=== PATIENT | male | born 1965 | race Caucasian/White ===

== ENCOUNTER → 2019-11-22 15:46 | Outpatient (BNVA) | payer MEDICAID, SELFPAY | PROVIDERS: Family Provider Nurse Practitioner; PCP Nurse Practitioner; Visit Provider Nurse Practitioner | DX: E11.65 Type 2 diabetes mellitus with hyperglycemia (principal); J44.9 Chronic obstructive pulmonary disease, unspecified; I10 Essential (primary) hypertension; L29.9 Pruritus, unspecified; K21.9 Gastro-esophageal reflux disease without esophagitis; Z86.79 Personal history of other diseases of the circulatory system; Z79.4 Long term (current) use of insulin; F41.9 Anxiety disorder, unspecified | CPT/HCPCS: 80053; 83036 ==

== ENCOUNTER → 2020-01-05 13:45 | Outpatient (BNVA) | payer MEDICAID, SELFPAY | PROVIDERS: Family Provider Nurse Practitioner; PCP Nurse Practitioner; Visit Provider Orthopaedic Surgery | DX: M25.561 Pain in right knee (principal); M25.562 Pain in left knee; M17.0 Bilateral primary osteoarthritis of knee; M19.022 Primary osteoarthritis, left elbow | CPT/HCPCS: 73080; 73560; 73565 ==

== ENCOUNTER → 2020-01-19 10:43 | Outpatient (BNVA) | payer MEDICAID, SELFPAY | PROVIDERS: Family Provider Nurse Practitioner; PCP Nurse Practitioner; Visit Provider Orthopaedic Surgery | DX: M16.0 Bilateral primary osteoarthritis of hip (principal) | CPT/HCPCS: 73522 ==

== ENCOUNTER → 2020-01-25 13:02 | Outpatient (BNVA) | payer MEDICAID, SELFPAY | PROVIDERS: Family Provider Nurse Practitioner; PCP Nurse Practitioner; Visit Provider Specialist | DX: G62.9 Polyneuropathy, unspecified (principal); Z87.891 Personal history of nicotine dependence | CPT/HCPCS: 95910 ==

== ENCOUNTER → 2020-02-17 13:25 | Outpatient (BNVA) | payer MEDICAID, SELFPAY | PROVIDERS: Family Provider Nurse Practitioner; PCP Nurse Practitioner; Visit Provider Specialist | DX: M19.021 Primary osteoarthritis, right elbow (principal); M19.022 Primary osteoarthritis, left elbow; G56.23 Lesion of ulnar nerve, bilateral upper limbs | CPT/HCPCS: G0463 ==

== ENCOUNTER → 2020-05-05 10:13 | Outpatient (BNVA) | payer MEDICAID, SELFPAY | PROVIDERS: Family Provider Nurse Practitioner; PCP Nurse Practitioner; Referring Provider Orthopaedic Surgery; Visit Provider Anesthesiology Pain Medicine | DX: M25.551 Pain in right hip (principal); M25.552 Pain in left hip; M19.021 Primary osteoarthritis, right elbow; M19.022 Primary osteoarthritis, left elbow; M17.0 Bilateral primary osteoarthritis of knee; G56.03 Carpal tunnel syndrome, bilateral upper limbs; G56.23 Lesion of ulnar nerve, bilateral upper limbs | CPT/HCPCS: 20610; 77002; 77003; 99204; J1030; J3490 ==

== ENCOUNTER 2020-05-23 13:55 | Outpatient (CLI) | payer MEDICAID, SELFPAY | END 2020-05-23 13:56 | disposition home or self-care (01) | LOC: LAB 04-05 14:37 | PROVIDERS: PCP Nurse Practitioner; Visit Provider Nurse Practitioner | DX: E11.65 Type 2 diabetes mellitus with hyperglycemia (principal) | CPT/HCPCS: 80053; 80061; 81000; 82150; 83036; 83690; 84443; 85025 ==

== ENCOUNTER 2020-05-30 10:31 | Outpatient (CLI) | payer MEDICAID, SELFPAY ==
--- NOTE | 2020-05-30 10:41 | ECG_ITS ---
[facility] Test Date: 2020-05-30 Pat Name: Yair Urrutia Department: Room: Gender: Male Diver Assistant: : 1965 Requested By: Darlene Deng Order Number: [id number] Cameron MD: Darlene Deng M.D. Interpretive Statements NAME OF STUDY: LEXISCAN SESTAMIBI STRESS TEST INDICATION: Chest Pain, PROCEDURE: At the baseline, the EKG revealed normal sinus rhythm with a poor R wave progression. The baseline blood pressure was 140/86 mm Hg with a heart rate of 81 beats/min. Lexiscan was infused over a period of 20 seconds. A total of 0.4 milligrams of Lexiscan was infused. The stress phase was continued for a total of 5 minutes. Heart rate at the end of the stress phase was 88 with a blood pressure 139/78. The EKG at the peak infusion revealed no significant changes. Sestamibi was injected 20 seconds after the Lexiscan infusion. Blood pressure at the end of the recovery phase was 140/72 with a heart rate of 87 per minute. CONCLUSION: 1. No significant EKG changes with the LexiScan infusion 2. No LexiScan induced chest pain or cardiac arrhythmia 3. Normal blood pressure and heart rate response 4. Sestamibi/sestamibi perfusion scan pending; see separate report. Electronically Signed On 05-31-2020 20:49:54 CDT by Darlene Deng M.D. [email or web address]
--- NOTE | 2020-05-30 10:41 | NMCV_ITS ---
NM irma perf SPECT r/s* [id number] Yair Urrutia Age: 54 Gender: M : 1965 Exam Date: 05/30/2020 11:32 Ordering Phys: Darlene Deng MD ([email or web address]) Technologist: CADENCE Adamson Exam Location: [facility] Indications: CHEST PAIN STRESS TEST Please see separate stress test report in [facility] for full findings IMAGE PROTOCOL Rest/Stress 1 Lexiscan Day Radiopharmaceutical Dose (mCi) Administration Site Administered by Rest: Tc-99m 10.8 IV CADENCE Cali Sestamibi Stress:Tc-99m 32.7 IV CADENCE Adamson Sestamiswapnil Rest: 30-May-2020 60 Discovery 630 Stress: 30-May-2020 30 Discovery 630 0.4mg Lexiscan. Images obtained in supine and prone position. SPECT RESULTS Technical Quality: Excellent Raw Data Analysis: Normal Image Corrections: No attenuation or motion correction applied Summed Stress Score: 3 Summed Rest Score: 1 Summed Difference Score: 2 PERFUSION FINDINGS Small area of decreased tracer uptake was noted in the mid and apical inferior wall region. There is some reversibility with the supine imaging. But with the prone imaging, there was no significant reversibility. FUNCTIONAL RESULTS (calculated via Gated SPECT) Stress Image LV EF (%): 76 Stress EDV (mL):106 TID: 0.97 Stress ESV (mL):25 FUNCTIONAL FINDINGS: Segmental wall motion analysis revealing no gross wall motion normalities. IMPRESSIONS 1. Myocardial perfusion imaging revealing a small area of inconsistent reversible defect in the inferior wall region, most likely artifactual. 2. Normal LV ejection fraction 76%. 3. LV wall motion analysis revealing no gross wall motion normalities. 4. Normal LV volume. Possibly no significant coronary ischemia, based on the above finding. No similar previous studies are available for comparison Dr Darlene Deng MD [facility] (Electronically Signed) Final Date: 31 May 2020 11:44 S
[2020-05-30 10:49] VITALS: BMI 42.7
[2020-05-30] MEDS: regadenoson 0.4 Mg/5 ml Syringe IVP (12:18)
[2020-05-30 12:34] VITALS: BP 140/72; PULSE 86
== END 2020-05-30 10:32 | disposition home or self-care (01) ==
LOC: CDL 10:31
PROVIDERS: PCP Nurse Practitioner; Visit Provider Internal Medicine Cardiovascular Disease
DX: R07.9 Chest pain, unspecified (principal); R06.02 Shortness of breath
CPT/HCPCS: 78452; 93017; A9500; J2785

== ENCOUNTER 2020-06-09 22:43 | Emergency (ER) | payer MEDICAID, SELFPAY ==
[2020-06-09 22:48] VITALS: BP 173/92; PULSE 103; RESP 20; TEMP 36.6; O2SAT 96; BMI 414.6
[2020-06-09 22:55] VITALS: PULSE 100
--- NOTE | 2020-06-09 22:59 | XRR_ITS ---
PROCEDURE INFORMATION: Exam: XR Left Elbow Exam date and time: 06/09/2020 10:59 PM Age: 54 years old Clinical indication: Injury or trauma; Blunt trauma (contusions or hematomas); Injury date: 06/09/20; Patient HX: C/O pain after fall left elbow. Swelling over olecranon and at joint. HX of left wrist surgery TECHNIQUE: Imaging protocol: XR Left elbow. Views: 3 or more views. COMPARISON: No relevant prior studies available. FINDINGS: Bones/joints: Osseous loose bodies are seen anteriorly overlying the coronoid process of the ulna. Soft tissues: Normal. XR/XR elbow LT min 3V* [id number] IMPRESSION: There are no acute osseous findings.
--- NOTE | 2020-06-09 22:59 | XRR_ITS ---
PROCEDURE INFORMATION: Exam: XR Right Knee Exam date and time: 06/09/2020 10:59 PM Age: 54 years old Clinical indication: Injury or trauma; Blunt trauma; Right; Injury date: 06/09/20; Patient HX: C/O pain RT knee after fall today. Swelling TECHNIQUE: Imaging protocol: XR Right knee. Views: 3 views. COMPARISON: No relevant prior studies available. FINDINGS: Bones/joints: Moderate loss of joint space seen in the medial compartment the right knee compatible with degenerative joint disease. Soft tissues: Normal. XR/XR knee RT 3V* [id number] IMPRESSION: There are no acute osseous findings.
--- NOTE | 2020-06-09 23:43 | W.ED.EXTPRO ---
HPI - Extremity Problem General: Chief complaint: Extremity Injury, Upper Stated complaint: l arm pain r knee pain Time Seen by Provider: 06/09/20 22:51 History of Present Illness: HPI Narrative: 54-year-old male who tripped over some firewood, injuring his left elbow and right knee. He can bear weight on his right knee, but it hurts significantly and is mildly swollen. He states the elbow is the worst pain. He did hit his head on the ground, but is not experiencing any headache or other symptoms related to that. MD Complaint: extremity pain and extremity swelling Onset (ago): hour(s) Pain Consistency: constant Location: left, right, upper extremity, lower extremity, elbow and knee Relieving factors: nothing Exacerbating factors: range of motion and weight bearing Associated symptoms: Deny chest pain or fever(s) Review of Systems Const: Denies: fever(s) or chills Card: Denies: chest pain or syncope Resp: Denies: dyspnea GI: Denies: nausea or vomiting PFS ED PFSH: Medical History (Updated 06/09/20 @ 23:55 by Harry Bailey DO) Anxiety Atypical chest pain the EKG revealed a normal sinus rhythm with possible old inferior wall myocardial infarction. No significant ST-T changes. Werner esophagus Benign essential hypertension with target blood pressure below 140/90 Bilateral carpal tunnel syndrome Cervical spondylosis with myelopathy and radiculopathy Chronic deep vein thrombosis of lower extremity Right Chronic musculoskeletal pain Chronic obstructive pulmonary disease, unspecified Controlled diabetes mellitus with hyperglycemia, with long-term current use of insulin Controlled diabetes mellitus with hyperglycemia, without long-term current use of insulin Cubital tunnel syndrome, bilateral ROGEL (dyspnea on exertion) Dyslipidemia Environmental and seasonal allergies History of intravenous drug use in remission Loose body in elbow joint Neuropathy Obesity DMITRIY (obstructive sleep apnea) Osteoarthritis of elbows, bilateral Osteoarthritis of knees, bilateral Surgical History History of cholecystectomy History of knee surgery History of thumb surgery Family History Other CVA (cerebrovascular accident due to intracerebral hemorrhage) Heart disease Hypertension Lung disease Social History Smoking and tobacco status: former smoker Second hand smoke exposure: No Smoking risk assessment/counseling performed?: No Alcohol intake: never Desire information about alcohol rehabilitation?: No Counseling given: No Desire information about substance/drug rehabilitation?: No Counseling given: No Caregiver/support person: No Lives independently: Yes Household members: spouse Marital status: History of recent travel: No Current gender identity: Male Physical Exam Const: GENERAL APPEARANCE: well developed ORIENTATION/CONSCIOUSNESS: Yes oriented to person, Yes oriented to place and Yes oriented to time HENMT: COMMON NORMALS: normocephalic, external ears normal and Normal external nose present HEAD & SCALP: normocephalic FACE & SINUS: normal facial exam NOSE: Normal external nose present and No nasal discharge present EXTERNAL EAR: Yes external ears normal Eye: COMMON NORMALS: Equal, round and reactive pupils present, EOMs intact bilaterally and conjunctivae normal EYELID: eyelids normal CONJUNCTIVA: Yes conjunctivae normal PUPIL: Yes Equal, round and reactive pupils present Neck/C-Spine: GENERAL: No tracheal deviation CERVICAL SPINE: No Cervical spine tenderness Chest: COMMONS NORMALS: normal inspection of the chest CHEST: No tenderness Resp: COMMON NORMALS: clear to auscultation bilaterally EFFORT & INSPECTION: No tachypneic, No respiratory distress, No retractions, No uses accessory muscles and No tracheal deviation AUSCULTATION: clear to auscultation bilaterally, no rhonchi, no wheezes and lung sounds not diminished Cardio: COMMON NORMALS: regular rate and regular rhythm RATE: regular rate RHYTHM: regular rhythm HEART SOUNDS: no murmurs PERIPHERAL PULSES: radial pulses present GI: INSPECTION: No abdominal distension AUSCULTATION: No Hyperactive bowel sounds present and No Hypoactive bowel sounds present PALPATION: No Guarding due to palpation present (GI) and No Rigid due to palpation PERCUSSION: no dullness to percussion and no tympanic to percussion Extremity: NARRATIVE EXTREMITY EXAM: Examination left elbow reveals some warmth and swelling. There is tenderness in the joint lines medial and lateral, there is significant tenderness over the radiocapitellar joint. Limitation of range of motion by pain. Examination of the right knee reveals mild knee joint effusion. There is tenderness in the medial joint line. There is no deformity. There is no varus or valgus instability. Neuro: SENSORIUM/ORIENTATION: Yes oriented to person, Yes oriented to place and Yes oriented to time Psych: COMMON NORMALS: mental status grossly normal Skin: COMMON NORMALS: no rashes or lesions noted GENERAL SKIN EXAM: no rashes or lesions noted Course Vital Signs: Vital signs: Vital Signs Temperature 97.9 F 06/09/20 22:48 Pulse Rate 99 06/10/20 00:22 Respiratory Rate 16 06/09/20 23:49 Blood Pressure 136/97 06/10/20 00:22 Pulse Oximetry 96 06/10/20 00:22 MDM - Extremity (Nontraumatic) MDM Narrative: Medical decision making narrative: X-ray of the right knee shows medial joint line arthritis with effusion. No fracture. X-ray of the left elbow shows a small joint effusion. There are multiple loose bodies present with osteoarthritic change. There does appear to be radial neck fracture that is likely acute. Discharge Plan Discharge Patient Disposition: Home Clinical Impression: Elbow fracture, left Qualifiers: Encounter type: initial encounter Fracture type: closed Qualified Code(s): S42.402A - Unspecified fracture of lower end of left humerus, initial encounter for closed fracture Contusion of knee, right Qualifiers: Encounter type: initial encounter Qualified Code(s): S80.01XA - Contusion of right knee, initial encounter Condition: Stable Prescriptions: New Percocet 5-325 mg tablet 1 tab PO QID PRN (Reason: pain) Qty: 14 RF: 0 No Action (DME) pen needle, diabetic 33 gauge x 5/32 needle See Rx Instructions .ROUTE .MEDSUPPLY Qty: 100 RF: 5 cetirizine 10 mg tablet 10 mg PO DAILY Qty: 30 RF: 5 doxepin 100 mg capsule 100 mg PO TID PRN (Reason: anxiety) Qty: 90 RF: 5 duloxetine [Cymbalta] 60 mg capsule,delayed release(DR/EC) 60 mg PO BID Qty: 60 RF: 5 hydroxyzine pamoate 50 mg capsule 50 mg PO .at bedtime Qty: 30 RF: 5 Hold Instructions: Dry mouth irbesartan 300 mg tablet 300 mg PO DAILY Qty: 30 RF: 5 pantoprazole 40 mg tablet,delayed release (DR/EC) 40 mg PO BID Qty: 60 RF: 5 propranolol 20 mg tablet 20 mg PO BID Qty: 60 RF: 5 Xarelto 20 mg tablet 20 mg PO DAILY Qty: 30 RF: 5 Levemir FlexTouch U-100 Insuln 100 unit/mL (3 mL) insulin pen 20 unit SUBCUT DAILY Qty: 15 RF: 0 (DME) blood-glucose meter Kit See Rx Instructions .ROUTE .MEDSUPPLY Qty: 1 RF: 0 sildenafil (pulm.hypertension) PO RF: 0 (DME) lancets [OneTouch Delica Lancets] 33 gauge misc See Rx Instructions .ROUTE .MEDSUPPLY Qty: 100 RF: 2 amlodipine 5 mg tablet 5 mg PO DAILY 30 Days Qty: 30 RF: 5 (DME) OneTouch Ultra Blue Test Strip Strip See Rx Instructions .ROUTE .MEDSUPPLY Qty: 50 RF: 5 (DME) OneTouch Ultra Blue Test Strip Strip See Rx Instructions .ROUTE .MEDSUPPLY Qty: 50 RF: 2 albuterol sulfate [ProAir HFA] 90 mcg/actuation HFA aerosol inhaler 2 puff INHALATION Q6H PRN (Reason: shortness of breath or wheezing) Qty: 18 RF: 0 Discharge Orders: Discharge Order (Routine); Ordered 06/09/20 Ordered By: Harry Bailey Referrals: Matthew Velazquez, FUNCTIONAL DIRECTOR-C [Primary Care Provider] - Jammie Moon MD [Physician] - 4-7 days Discharge Diet: Usual diet Discharge Activity: Limit activity as instructed Patient Instructions: Elbow Fracture in Adults (ED), Knee Pain (ED) Activity Restrictions/Additional Instructions: Return for worsening pain despite treatment, significant numbness and tingling, other concerning symptoms. Ice the elbow and knee, as it will help pain and swelling. Stay in your elbow splint until seen by orthopedics. Discharge Date/Time: 06/10/20 00:22 Coding Level of Care Code ED Small [employer] Assembler for Chg Fwd Exam Comprehensive
[2020-06-09 23:49] VITALS: RESP 16; O2SAT 99
[2020-06-09] MEDS: oxyCODONE-APAP 5-325 mg Tablet 2 TAB PO (23:49)
[2020-06-10 00:22] VITALS: BP 136/97; PULSE 99; O2SAT 96
--- NOTE | 2020-06-12 14:17 | DCPLANNER ---
manager of investigations had message to schedule a follow up appointment for patient with ortho. manager of investigations called the ortho clinic, spoke with Pat, gave clinic patients information. manager of investigations was told that patients information would be printed and reviewed. Clinic will call patient with appointment information.
--- NOTE | 2020-06-14 13:32 | DCPLANNER ---
Patient has a follow up appointment scheduled for Sunday, June 28, 2020 at 1:[address] Moon. Clinic will call patient with appointment information.
--- NOTE | 2020-07-26 15:38 | DCPLANNER ---
Patient had a follow up appointment scheduled for 06.28.20 with ortho - patient did attend appointment.
== END 2020-06-10 00:22 | disposition home or self-care (01) ==
PROVIDERS: Emergency Provider Emergency Medicine; PCP Nurse Practitioner
DX: S42.402A Unspecified fracture of lower end of left humerus, initial encounter for closed fracture (principal); S80.01XA Contusion of right knee, initial encounter; Z79.4 Long term (current) use of insulin; I10 Essential (primary) hypertension; J44.9 Chronic obstructive pulmonary disease, unspecified; E78.5 Hyperlipidemia, unspecified; E11.40 Type 2 diabetes mellitus with diabetic neuropathy, unspecified; Z87.891 Personal history of nicotine dependence; W18.09XA Striking against other object with subsequent fall, initial encounter
CPT/HCPCS: 12345; 29105; 73080; 73562; 99282; 99283

== ENCOUNTER 2020-07-06 20:00 | Outpatient (CLI) | payer MEDICAID, SELFPAY | END 2020-07-06 20:01 | disposition home or self-care (01) | LOC: SLEEP 07-07 11:12 | PROVIDERS: PCP Nurse Practitioner; Visit Provider Internal Medicine Critical Care Medicine | DX: G47.33 Obstructive sleep apnea (adult) (pediatric) (principal) | CPT/HCPCS: 95811 ==

== ENCOUNTER 2020-07-19 12:59 | Outpatient (CLI) | payer MEDICAID, SELFPAY ==
--- NOTE | 2020-07-19 13:05 | CT_ITS ---
WS: [id number] CT HEAD NONCONTRAST HISTORY: head injury, fall, headache, nausea, history of concussion TECHNIQUE: Contiguous axial imaging performed through the brain in 2.5 mm imaging. Bone and soft tiss ue windows. Sagittal and coronal reformats reviewed. All CT scans at [facility] use at le ast one of these dose optimization techniques: automated exposure control; mA and/or kV adjustment pe r patient size (includes targeted exams where dose is matched to clinical indication); or iterative r econstruction. DLP: 860.63 mGy.cm COMPARISON: None available. No acute intracranial hemorrhage, midline shift or mass effect. Encephalomalacia involving the LEFT frontal vertex. Consistent with a prior infarct with volume loss. Ventricles: Normal size with no hydrocephalus. No inferior displacement of cerebellar tonsils. Paranasal sinuses: As visualized are clear. Mastoid air cells: Well pneumatized. Calvarium and scalp: Skull is intact with no soft tissue edema or swelling. CT/CT head wo con* [id number] IMPRESSION: 1. No acute intracranial hemorrhage or edema. 2. 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
--- NOTE | 2020-07-19 13:05 | US_ITS ---
WS: [id number] Complete ABDOMINAL ULTRASOUND HISTORY: abdomen upper left pain COMPARISON: 11/17/2018 renal ultrasound. Liver: 18.8 cm in length. Liver is slightly enlarged. Marked attenuation and coarsened echotexture fr om hepatic steatosis. No mass or bile duct dilatation. Gallbladder: Prior cholecystectomy. Pancreas: Normal size and echogenicity. CBD: 0.3 cm. Right kidney: 11.2 cm x 6.8 cm x 6.2 cm. No mass, cortical thickening or hydronephrosis. Left kidney: 11.9 cm x 7.3 cm x 7.4 cm. No mass, cortical thickening or hydronephrosis. Spleen: Normal size and echogenicity. Limited aorta and IVC visualization. No ascites. US/US abdomen complete* [id number] IMPRESSION: 1. Technically limited evaluation of the abdominal structures due to body habi tus. 2. Prior cholecystectomy. 3. Moderate hepatomegaly with severe hepatic steatosis.
== END 2020-07-19 13:00 | disposition home or self-care (01) ==
LOC: CT 13:01
PROVIDERS: PCP Nurse Practitioner; Visit Provider Nurse Practitioner Family
DX: R11.0 Nausea; R51.9 Headache, unspecified; S09.90XA Unspecified injury of head, initial encounter; Z87.820 Personal history of traumatic brain injury; W19.XXXA Unspecified fall, initial encounter; R10.12 Left upper quadrant pain; R16.0 Hepatomegaly, not elsewhere classified; K76.0 Fatty (change of) liver, not elsewhere classified
CPT/HCPCS: 70450; 76700

== ENCOUNTER → 2020-09-01 11:26 | Outpatient (BNVA) | payer MEDICAID, SELFPAY | PROVIDERS: PCP Nurse Practitioner; Visit Provider Nurse Practitioner | DX: E11.65 Type 2 diabetes mellitus with hyperglycemia (principal); E78.5 Hyperlipidemia, unspecified; I10 Essential (primary) hypertension; Z79.4 Long term (current) use of insulin | CPT/HCPCS: 80053; 80061; 83036; 84443; 85025 ==

== ENCOUNTER → 2020-09-25 11:11 | Outpatient (BNVA) | payer MEDICAID, SELFPAY | PROVIDERS: PCP Nurse Practitioner; Visit Provider Nurse Practitioner | DX: Z12.5 Encounter for screening for malignant neoplasm of prostate (principal) | CPT/HCPCS: 81000; G0103 ==

== ENCOUNTER → 2020-12-19 15:22 | Outpatient (BNVA) | payer MEDICAID, SELFPAY | PROVIDERS: PCP Nurse Practitioner; Visit Provider Nurse Practitioner | DX: E11.65 Type 2 diabetes mellitus with hyperglycemia (principal); Z79.4 Long term (current) use of insulin; I10 Essential (primary) hypertension; E78.5 Hyperlipidemia, unspecified | CPT/HCPCS: 80053; 80061; 83036; 84443; 85025 ==

== ENCOUNTER → 2021-02-28 13:18 | Outpatient (BNVA) | payer MEDICAID, SELFPAY | PROVIDERS: PCP Nurse Practitioner; Visit Provider Nurse Practitioner Family | DX: E11.65 Type 2 diabetes mellitus with hyperglycemia (principal); I10 Essential (primary) hypertension; Z79.4 Long term (current) use of insulin | CPT/HCPCS: 80053; 80061; 83036; 83721; 84443 ==

== ENCOUNTER → 2021-03-20 07:41 | Outpatient (BNVA) | payer MEDICAID, SELFPAY | PROVIDERS: PCP Nurse Practitioner; Visit Provider Counselor Mental Health | DX: F41.9 Anxiety disorder, unspecified (principal) | CPT/HCPCS: 90834 ==

== ENCOUNTER → 2021-03-27 07:27 | Outpatient (BNVA) | payer MEDICAID, SELFPAY | PROVIDERS: PCP Nurse Practitioner; Visit Provider Counselor Mental Health | DX: F41.9 Anxiety disorder, unspecified (principal) | CPT/HCPCS: 90834 ==

== ENCOUNTER 2021-03-28 15:33 | Outpatient (CLI) | payer MEDICAID, SELFPAY ==
--- NOTE | 2021-03-28 15:51 | XRR_ITS ---
PROCEDURE INFORMATION: Exam: XR Bilateral Hips Exam date and time: 03/28/2021 3:51 PM Age: 55 years old Clinical indication: Pain and injury or trauma; Fall; Blunt trauma (contusions or hematomas); Bilateral; Hip pain; Injury date: December 2020; Additional info: Bilateral hip pain, PT fell December 2020, pain since TECHNIQUE: Imaging protocol: XR bilateral hips. Views: 2 views of hips with pelvis when performed. COMPARISON: CR XR hip BI 3-4V wo/w pel [id number] 01/19/2020 10:48 AM FINDINGS: Bones/joints: No acute fracture or dislocation. There is mild bilateral degenerative changes of the hip joints, manifested by joint space narrowing and periarticular osteophytes, right greater than left. Soft tissues: Unremarkable. XR/XR hip BI 3-4V wo/w pel [id number] IMPRESSION: 1. Mild bilateral hip osteoarthrosis, right greater than left. 2. No acute injury.
== END 2021-03-28 15:34 | disposition home or self-care (01) ==
PROVIDERS: PCP Nurse Practitioner; Visit Provider Nurse Practitioner Family
DX: M25.551 Pain in right hip (principal); W19.XXXA Unspecified fall, initial encounter
CPT/HCPCS: 73522

== ENCOUNTER → 2021-04-10 08:26 | Outpatient (BNVA) | payer MEDICAID, SELFPAY | PROVIDERS: PCP Nurse Practitioner; Visit Provider Counselor Mental Health | DX: F41.9 Anxiety disorder, unspecified (principal); F43.21 Adjustment disorder with depressed mood | CPT/HCPCS: 90834 ==

== ENCOUNTER → 2021-04-23 15:04 | Outpatient (BNVA) | payer MEDICAID, SELFPAY | PROVIDERS: PCP Nurse Practitioner; Referring Provider Nurse Practitioner Family; Visit Provider Specialist | DX: M25.551 Pain in right hip (principal); M25.552 Pain in left hip; M16.0 Bilateral primary osteoarthritis of hip | CPT/HCPCS: 73523 ==

== ENCOUNTER → 2021-04-24 07:31 | Outpatient (BNVA) | payer MEDICAID, SELFPAY | PROVIDERS: PCP Nurse Practitioner; Visit Provider Counselor Mental Health | DX: F41.9 Anxiety disorder, unspecified (principal); F43.21 Adjustment disorder with depressed mood | CPT/HCPCS: 90834 ==

== ENCOUNTER → 2021-05-01 08:02 | Outpatient (BNVA) | payer MEDICAID, SELFPAY | PROVIDERS: PCP Nurse Practitioner; Visit Provider Counselor Mental Health | DX: F41.9 Anxiety disorder, unspecified (principal); F43.21 Adjustment disorder with depressed mood | CPT/HCPCS: 90834 ==

== ENCOUNTER → 2021-05-08 08:46 | Outpatient (BNVA) | payer MEDICAID, SELFPAY | PROVIDERS: PCP Nurse Practitioner; Visit Provider Counselor Mental Health | DX: F41.9 Anxiety disorder, unspecified (principal); F43.21 Adjustment disorder with depressed mood | CPT/HCPCS: 90834 ==

== ENCOUNTER → 2021-05-15 08:24 | Outpatient (BNVA) | payer MEDICAID, SELFPAY | PROVIDERS: PCP Nurse Practitioner; Visit Provider Counselor Mental Health | DX: F41.9 Anxiety disorder, unspecified (principal); F43.21 Adjustment disorder with depressed mood | CPT/HCPCS: 90834 ==

== ENCOUNTER → 2021-06-05 11:18 | Outpatient (BNVA) | payer MEDICAID, SELFPAY | PROVIDERS: PCP Nurse Practitioner; Visit Provider Nurse Practitioner Family | DX: E78.5 Hyperlipidemia, unspecified (principal); E11.65 Type 2 diabetes mellitus with hyperglycemia; I10 Essential (primary) hypertension; F41.9 Anxiety disorder, unspecified; R21 Rash and other nonspecific skin eruption; I82.509 Chronic embolism and thrombosis of unspecified deep veins of unspecified lower extremity; K22.70 Barrett's esophagus without dysplasia; J30.89 Other allergic rhinitis; J44.9 Chronic obstructive pulmonary disease, unspecified; E66.01 Morbid (severe) obesity due to excess calories; Z68.41 Body mass index [BMI] 40.0-44.9, adult; Z79.4 Long term (current) use of insulin | CPT/HCPCS: 80053; 80061; 83036; 84443; 85025 ==

== ENCOUNTER 2021-06-14 | Outpatient (CLI) | payer MEDICAID, SELFPAY | END 2021-06-14 00:01 | disposition home or self-care (01) | LOC: RADSHAW 12-31 13:28 | PROVIDERS: PCP Nurse Practitioner; Visit Provider Specialist | DX: F41.9 Anxiety disorder, unspecified (principal); F43.21 Adjustment disorder with depressed mood | CPT/HCPCS: 90834 ==

== ENCOUNTER → 2021-06-26 08:47 | Outpatient (BNVA) | payer MEDICAID, SELFPAY | PROVIDERS: PCP Nurse Practitioner; Visit Provider Counselor Mental Health | DX: F41.9 Anxiety disorder, unspecified (principal) | CPT/HCPCS: 90832 ==

== ENCOUNTER → 2021-07-10 08:30 | Outpatient (BNVA) | payer MEDICAID, SELFPAY | PROVIDERS: PCP Nurse Practitioner; Visit Provider Counselor Mental Health | DX: F41.9 Anxiety disorder, unspecified (principal) | CPT/HCPCS: 90832 ==

== ENCOUNTER 2021-07-12 15:06 | Outpatient (CLI) | payer MEDICAID, SELFPAY ==
--- NOTE | 2021-07-12 14:00 | CT_ITS ---
WS: [id number] LDCT LUNG CANCER SCREENING TECHNIQUE: Noncontrast CT of the chest with coronal and sagittal reformatted images. CLINICAL INFORMATION: History of Nicotine Dependenc COMPARISON: CT chest 2015 and PET/CT 2 ,018 DLP: 60.52 mGy.cm DIvol: 1.[address] scans at [facility] use at least one of these dose optimization techniques: automat ed exposure control; mA and/or kV adjustment per patient size (includes targeted exams where dose is matched to clinical indication); or iterative reconstruction. FINDINGS: Cluster of noncalcified pulmonary nodules in the right lower lobe largest measuring 11 mm. Small amou nt of micronodular infiltrate. This appears new since the prior studies. Recommend further evaluation with contrast-enhanced chest CT. Some of this may be infectious or inflammatory but indeterminant. Moderate chronic emphysematous changes. Normal caliber thoracic aorta. Coronary calcification. No mediastinal or hilar lymphadenopathy. Cholecystectomy. CT/CT lung screening [id number] IMPRESSION: LUNG-RADS: 4A-Probably Suspicious FOLLOW UP: 3 Month LDCT
== END 2021-07-12 15:07 | disposition home or self-care (01) ==
LOC: RAD 15:07
PROVIDERS: PCP Nurse Practitioner; Visit Provider Internal Medicine Critical Care Medicine
DX: Z12.2 Encounter for screening for malignant neoplasm of respiratory organs (principal); Z87.891 Personal history of nicotine dependence
CPT/HCPCS: 71271

== ENCOUNTER → 2021-07-31 13:34 | Outpatient (BNVA) | payer MEDICAID, SELFPAY | PROVIDERS: PCP Nurse Practitioner; Visit Provider Counselor Mental Health | DX: F41.9 Anxiety disorder, unspecified (principal); F43.21 Adjustment disorder with depressed mood | CPT/HCPCS: 90834 ==

== ENCOUNTER → 2021-08-07 08:22 | Outpatient (BNVA) | payer MEDICAID, SELFPAY | PROVIDERS: PCP Nurse Practitioner; Visit Provider Counselor Mental Health | DX: F41.9 Anxiety disorder, unspecified (principal); F43.21 Adjustment disorder with depressed mood | CPT/HCPCS: 90832 ==

== ENCOUNTER → 2021-09-05 13:18 | Outpatient (BNVA) | payer MEDICAID, SELFPAY | PROVIDERS: PCP Nurse Practitioner; Visit Provider Nurse Practitioner Family | DX: E11.65 Type 2 diabetes mellitus with hyperglycemia (principal); I10 Essential (primary) hypertension; Z79.4 Long term (current) use of insulin | CPT/HCPCS: 80053; 80061; 83036; 84443 ==

== ENCOUNTER → 2021-09-20 13:29 | Outpatient (BNVA) | payer MEDICAID, SELFPAY | PROVIDERS: PCP Nurse Practitioner; Referring Provider Specialist; Visit Provider Specialist | DX: G62.89 Other specified polyneuropathies (principal); Z87.891 Personal history of nicotine dependence | CPT/HCPCS: 95909 ==

== ENCOUNTER → 2021-10-08 14:47 | Outpatient (BNVA) | payer MEDICAID, SELFPAY | PROVIDERS: PCP Nurse Practitioner; Visit Provider Surgery | DX: Z11.52 Encounter for screening for COVID-19 (principal) | CPT/HCPCS: 87635 ==

== ENCOUNTER 2021-10-11 08:45 | Day surgery (SDC) | payer MEDICAID, SELFPAY ==
--- NOTE | 2021-10-11 09:31 | ANES.PREANE2 ---
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 Operation Date: 10/11/21 09:45 Proposed Procedures p EGD [id number] K21.9(Not Applicable) - Ari Sandhu MD Familial anesthetic complications: None Was Beta Ryland taken within 24 hours: Yes Was Clonidine taken within 24 hours: N/A Social Tobacco and No alcohol Exam alert, oriented x 3 and regular rate & rhythm Airway Submandibular: within normal limits Cervical ROM: within normal limits Mallampati: Class II Dentition: chipped Comments: Comments: Poor dentition, large smiley Pulmonary Chronic Obstructive Pulmonary Disease and Sleep Apnea CV/HEM Deep Vein Thrombosis and Hypertension GI Gastroesophageal Reflux Disease Werner's Metabolic Diabetes Mellitus, Hyperlipidemia and Morbid Obesity Musc/skel Lower Back Pain and Osteoarthritis/DJD Neuropsych Anxiety Anesthetic Plan ASA status: 3 Anesthesia: MAC Medications/Allergies Home Medications Medication Instructions Recorded Confirmed Last Taken Type blood-glucose meter #1 each 11/20/19 09/20/21 Unknown History pen needle, diabetic 33 gauge x #100 each 05/23/20 09/20/21 Unknown Rx 5/32 lancets 33 gauge (OneTouch Delica #100 each 06/15/20 09/20/21 Unknown Rx Lancets) oxygen-air delivery systems 05/10/21 09/20/21 Unknown History cetirizine 10 mg tablet 10 mg PO DAILY #30 tab 09/04/21 10/09/21 Unknown Rx doxepin 100 mg capsule 100 mg PO TID PRN #90 cap 09/04/21 10/09/21 Unknown Rx duloxetine 60 mg capsule,delayed 60 mg PO BID #60 cap 09/04/21 10/09/21 Unknown Rx release (Cymbalta) hydroxyzine pamoate 50 mg capsule 50 mg PO .at bedtime #30 cap 09/04/21 10/09/21 Unknown Rx irbesartan 300 mg tablet 300 mg PO DAILY #30 tab 09/04/21 10/09/21 Unknown Rx metformin 500 mg tablet,extended 2,000 mg PO DAILY #120 tab 09/04/21 10/09/21 Unknown Rx release 24 hr pantoprazole 40 mg tablet,delayed 40 mg PO BID #60 tab 09/04/21 10/09/21 Unknown Rx release propranolol 20 mg tablet 20 mg PO BID #60 tab 09/04/21 10/09/21 Unknown Rx rivaroxaban 20 mg tablet (Xarelto) 20 mg PO DAILY #30 tab 09/04/21 10/09/21 10/08/21 Rx sitagliptin 100 mg tablet (Januvia) 100 mg PO DAILY #30 tab 09/04/21 10/09/21 Unknown Rx amlodipine 5 mg tablet 5 mg PO DAILY 10/11/21 10/11/21 Unknown History Allergies Allergy/AdvReac Type Severity Reaction Status Date / Time hydrocodone Allergy Unknown Itching Verified 10/11/21 09:28 alcohol Allergy Unknown Verified 10/11/21 09:28 aspirin AdvReac Severe ADR-Cramping Verified 10/11/21 09:28 of the Muscles metformin AdvReac Severe ADR-Diarrhe Verified 10/11/21 09:28 a [facility] Anesthesia Medical History Anxiety Atypical chest pain the EKG revealed a normal sinus rhythm with possible old inferior wall myocardial infarction. No significant ST-T changes. Benign essential hypertension with target blood pressure below 140/90 Bilateral carpal tunnel syndrome Cervical spondylosis with myelopathy and radiculopathy Chronic deep vein thrombosis of lower extremity Right Chronic musculoskeletal pain Chronic obstructive pulmonary disease, unspecified Controlled diabetes mellitus with hyperglycemia, with long-term current use of insulin Controlled diabetes mellitus with hyperglycemia, without long-term current use of insulin Cubital tunnel syndrome, bilateral ROGEL (dyspnea on exertion) Dyslipidemia Environmental and seasonal allergies History of intravenous drug use in remission Loose body in elbow joint Neuropathy Obesity DMITRIY (obstructive sleep apnea) Osteoarthritis of elbows, bilateral Osteoarthritis of knees, bilateral Psychiatric care Surgical History History of cholecystectomy History of knee surgery History of thumb surgery Family History Other CVA (cerebrovascular accident due to intracerebral hemorrhage) Heart disease Hypertension Lung disease Social History Smoking and tobacco status: former smoker Quit status (tobacco): has quit using tobacco Year quit tobacco: 2013 - 2PPD x 45 Years Smoking risk assessment/counseling performed?: No Alcohol intake: never Desire information about alcohol rehabilitation?: No Counseling given: No Desire information about substance/drug rehabilitation?: No Counseling given: No Lives independently: Yes Household members: spouse Marital status: Current occupational status: disabled History of recent travel: No Current gender identity: Male Data Anesthesia Cardiac Studies: Sestamibi Stress Test (Cardiology) 05/30/20
--- NOTE | 2021-10-11 09:35 | W.PM.OPSFHP ---
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 Patient was seen and evaluated recently by Dr. Tam and undergone a lexical laryngoscopy and was referred to general surgery for further evaluation and potential EGD. Patient had a diagnostic EGD back in [address] Baez was found to have chronic diffuse gastritis Per ENT evaluation recommendation to follow-up as needed interim history 10/11/21 Patient comes today for diagnostic EGD ROS All systems have been reviewed negative except as per the above or per problem list Medications/Allergies* Home Medications Medication Instructions Recorded Confirmed Type blood-glucose meter #1 each 11/20/19 09/20/21 History oxygen-air delivery systems 05/10/21 09/20/21 History amlodipine 5 mg tablet 5 mg PO DAILY 10/11/21 10/11/21 History Allergies/Adverse Reactions Allergy/AdvReac Type Severity Reaction Status Date / Time hydrocodone Allergy Unknown Itching Verified 10/11/21 09:36 alcohol Allergy Unknown Verified 10/11/21 09:36 aspirin AdvReac Severe ADR-Cramping Verified 10/11/21 09:36 of the Muscles metformin AdvReac Severe ADR-Diarrhe Verified 10/11/21 09:36 a Pertinent History/Comorbid Conditions* Medical History (Updated 09/21/21 @ 10:37 by Ruth Araujo MD) Anxiety Atypical chest pain the EKG revealed a normal sinus rhythm with possible old inferior wall myocardial infarction. No significant ST-T changes. Benign essential hypertension with target blood pressure below 140/90 Bilateral carpal tunnel syndrome Cervical spondylosis with myelopathy and radiculopathy Chronic deep vein thrombosis of lower extremity Right Chronic musculoskeletal pain Chronic obstructive pulmonary disease, unspecified Controlled diabetes mellitus with hyperglycemia, with long-term current use of insulin Controlled diabetes mellitus with hyperglycemia, without long-term current use of insulin Cubital tunnel syndrome, bilateral ROGEL (dyspnea on exertion) Dyslipidemia Environmental and seasonal allergies History of intravenous drug use in remission Loose body in elbow joint Neuropathy Obesity DMITRIY (obstructive sleep apnea) Osteoarthritis of elbows, bilateral Osteoarthritis of knees, bilateral Psychiatric care Surgical History (Updated 11/22/19 @ 15:34 by KENDRA Dockery-C) History of cholecystectomy History of knee surgery History of thumb surgery Family History (Updated 11/20/19 @ 14:55 by KRISTEN Thomas) Heart disease CVA (cerebrovascular accident due to intracerebral hemorrhage) Lung disease Hypertension Social History Smoking and tobacco status: former smoker Quit status (tobacco): has quit using tobacco Year quit tobacco: 2013 - 2PPD x 45 Years Smoking risk assessment/counseling performed?: No Alcohol intake: never Desire information about alcohol rehabilitation?: No Counseling given: No Desire information about substance/drug rehabilitation?: No Counseling given: No Lives independently: Yes Household members: spouse Marital status: Current occupational status: disabled History of recent travel: No Current gender identity: Male Pertinent Exam Findings alert, oriented x 3 and procedure specific exam findings (Abdominal examination nontender nondistended soft) Recommendations Surgery/Procedure today (EGD w poss Bx) Coding Level of Care Code 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
[2021-10-11 09:38] VITALS: BP 184/98; PULSE 95; RESP 18; TEMP 37.2; O2SAT 95
[2021-10-11] MEDS: sodium chloride 0.9% 1,000 ML 30 ML IV (09:41)
[2021-10-11 10:25] VITALS: BP 126/92; PULSE 105; RESP 18; TEMP 36.1; O2SAT 97
[2021-10-11 10:39] VITALS: BP 151/88; PULSE 93; RESP 18; O2SAT 96
--- NOTE | 2021-10-11 11:13 | P.PCN_ITS ---
PACU note Exam: awake Disposition: discharged
--- NOTE | 2021-10-11 11:13 | PM.PACU ---
PACU note Exam: awake Disposition: discharged
== END 2021-10-11 10:51 | disposition home or self-care (01) ==
PROVIDERS: PCP Nurse Practitioner; Visit Provider Surgery
PROC: 0DJ08ZZ Inspection of Upper Intestinal Tract, Via Natural or Artificial Opening Endoscopic (ICD-10-PCS; CPT 43235; principal; 2021-10-11 09:45)
DX: K21.00 Gastro-esophageal reflux disease with esophagitis, without bleeding (principal); K29.70 Gastritis, unspecified, without bleeding; J44.9 Chronic obstructive pulmonary disease, unspecified; G47.30 Sleep apnea, unspecified; I10 Essential (primary) hypertension; Z86.718 Personal history of other venous thrombosis and embolism; E11.65 Type 2 diabetes mellitus with hyperglycemia; Z79.4 Long term (current) use of insulin; E11.40 Type 2 diabetes mellitus with diabetic neuropathy, unspecified; E78.5 Hyperlipidemia, unspecified; E66.9 Obesity, unspecified; Z68.41 Body mass index [BMI] 40.0-44.9, adult; G47.33 Obstructive sleep apnea (adult) (pediatric); M17.0 Bilateral primary osteoarthritis of knee; M19.022 Primary osteoarthritis, left elbow; M19.021 Primary osteoarthritis, right elbow; Z87.891 Personal history of nicotine dependence
CPT/HCPCS: 43239; 88305; J2704; J7030

== ENCOUNTER → 2021-10-31 10:36 | Outpatient (BNVA) | payer MEDICAID, SELFPAY | PROVIDERS: PCP Nurse Practitioner; Visit Provider Specialist | DX: M25.561 Pain in right knee (principal); M25.562 Pain in left knee | CPT/HCPCS: 73560; 73565 ==

== ENCOUNTER → 2021-11-08 13:11 | Outpatient (BNVA) | payer MEDICAID, SELFPAY | PROVIDERS: PCP Nurse Practitioner; Visit Provider Internal Medicine Critical Care Medicine | DX: G47.33 Obstructive sleep apnea (adult) (pediatric) (principal); J42 Unspecified chronic bronchitis; R91.1 Solitary pulmonary nodule; J38.3 Other diseases of vocal cords; Z87.891 Personal history of nicotine dependence | CPT/HCPCS: 99214 ==

== ENCOUNTER → 2021-11-15 11:40 | Outpatient (BNVA) | payer MEDICAID, SELFPAY | PROVIDERS: PCP Nurse Practitioner; Visit Provider Internal Medicine Cardiovascular Disease | DX: J44.9 Chronic obstructive pulmonary disease, unspecified (principal); I10 Essential (primary) hypertension; E11.65 Type 2 diabetes mellitus with hyperglycemia | CPT/HCPCS: 99214 ==

== ENCOUNTER → 2021-11-23 11:29 | Outpatient (BNVA) | payer MEDICAID, SELFPAY | PROVIDERS: PCP Nurse Practitioner; Visit Provider Nurse Practitioner Family | DX: E11.65 Type 2 diabetes mellitus with hyperglycemia (principal); Z79.4 Long term (current) use of insulin; E78.5 Hyperlipidemia, unspecified | CPT/HCPCS: 80053; 80061; 83036; 84443; 85025 ==

== ENCOUNTER → 2021-12-27 10:44 | Outpatient (BNVA) | payer MEDICAID, SELFPAY | PROVIDERS: PCP Nurse Practitioner; Visit Provider Physician Assistant | DX: L28.1 Prurigo nodularis (principal); L29.8 Other pruritus | CPT/HCPCS: 80053; 84443; 85025 ==

== ENCOUNTER 2022-01-10 10:33 | Day surgery (SDC) | payer MEDICAID, SELFPAY ==
[2022-01-09 14:01] VITALS: BMI 42.0
[2022-01-10] VITALS (7 sets, daily range): BP systolic 138–179; BP diastolic 65–92; PULSE 74–98; RESP 18–20; TEMP 36.1–36.6; O2SAT 94–99
--- NOTE | 2022-01-10 10:38 | P.HP_ITS ---
Same Day Surgery H&P Indication for Procedure/HPI DATE OF PROCEDURE: January 10, 2022 CHIEF COMPLAINT/INDICATIONFOR SURGICAL PROCEDURE: Werner's esophagus PREOP DIAGNOSIS: History of Werner's esophagitis PLANNED PROCEDURE: Operation Date: 01/10/22 11:30 Proposed Procedures p EGD [id number],[id number](Not Applicable) - Ari Sandhu MD Mr. Thapa comes today for diagnostic EGD with possible biopsies to be done under general anesthesia ROS All systems have been reviewed negative except as for the above or per problem list. Medications/Allergies* Home Medications Medication Instructions Recorded Confirmed Type blood-glucose meter #1 each 11/20/19 12/05/21 History oxygen-air delivery systems 05/10/21 12/05/21 History Allergies/Adverse Reactions Allergy/AdvReac Type Severity Reaction Status Date / Time hydrocodone Allergy Unknown Itching Verified 01/10/22 10:39 alcohol Allergy Unknown Verified 01/10/22 10:39 aspirin AdvReac Severe ADR-Cramping Verified 01/10/22 10:39 of the Muscles metformin AdvReac Severe ADR-Diarrhe Verified 01/10/22 10:39 a Pertinent History/Comorbid Conditions* Medical History (Updated 11/15/21 @ 12:09 by Darlene Deng MD) Anxiety Atypical chest pain the EKG revealed a normal sinus rhythm with possible old inferior wall myocardial infarction. No significant ST-T changes. Benign essential hypertension with target blood pressure below 140/90 Bilateral carpal tunnel syndrome Cervical spondylosis with myelopathy and radiculopathy Chronic deep vein thrombosis of lower extremity Right Chronic musculoskeletal pain Chronic obstructive pulmonary disease, unspecified Controlled diabetes mellitus with hyperglycemia, with long-term current use of insulin Controlled diabetes mellitus with hyperglycemia, without long-term current use of insulin Cubital tunnel syndrome, bilateral ROGEL (dyspnea on exertion) Dyslipidemia Environmental and seasonal allergies History of intravenous drug use in remission Loose body in elbow joint Neuropathy Obesity DMITRIY (obstructive sleep apnea) Osteoarthritis of elbows, bilateral Osteoarthritis of knees, bilateral Psychiatric care Surgical History (Updated 11/22/19 @ 15:34 by ALEKSANDR Dockery) History of cholecystectomy History of knee surgery History of thumb surgery Family History (Updated 11/20/19 @ 14:55 by KRISTEN Thomas) Heart disease CVA (cerebrovascular accident due to intracerebral hemorrhage) Lung disease Hypertension Social History Smoking and tobacco status: former smoker Quit status (tobacco): has quit using tobacco Year quit tobacco: 2014 - 2PPD x 45 Years Smoking risk assessment/counseling performed?: No Alcohol intake: never Desire information about alcohol rehabilitation?: No Counseling given: No Desire information about substance/drug rehabilitation?: No Counseling given: No Lives independently: Yes Household members: spouse Marital status: Current occupational status: disabled History of recent travel: No Current gender identity: Male Pertinent Exam Findings alert, oriented x 3, regular rate & rhythm and procedure specific exam findings (Abdominal examination nontender nondistended soft) Recommendations Surgery/Procedure today (EGD with possible biopsy ) Other Plans: Plan of care; After thorough history and physical examination and reviewing the chart, plan to perform a diagnostic esophagogastroduodenoscopy with possible biopsy in the GI lab. I discussed with the patient in detail the risk,benefits,alternatives and indications.The risk of aspiration, bleeding, soft tissue injury, perforation of the stomach/esophagus and other potential concomitant complications were explained to the patient in details,aslo the potential need for Thoracic and or Abdominal surgery to repair any complications.The patient understood this well and did agree to proceed. Rationale was carefully and clearly discussed with the patient.Appropriate informed consent have been reviewed and signed All questions have been answered and all concerns have been addressed to patient's satisfaction. Patient also understands the potential higher risk related to his cardiac status as he is willing to proceed with the endoscopy. Understanding that he was supposed to get a stress test but this is pending. And per anesthesia they are comfortable proceeding accordingly. 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
--- NOTE | 2022-01-10 11:11 | ANES.PREANE2 ---
Pre-Anesthetic Assessment Height/Weight: Height 1.83 m Weight 140.614 kg Temp Pulse Resp BP Pulse Ox 98 F 74 20 H 157/92 95 01/10/22 11:02 01/10/22 11:02 01/10/22 11:02 01/10/22 11:02 01/10/22 11:02 Preop Diagnosis: History of Werner's esophagitis Operation Date: 01/10/22 11:30 Proposed Procedures p EGD 18437,[id number](Not Applicable) - Ari Sandhu MD Last intake: Intake Last Liquid Date 01/09/22 Last Liquid Time 23:30 Last Solid Date 01/09/22 Last Solid Time 19:00 Medications/Allergies Home Medications Medication Instructions Recorded Confirmed Last Taken Type blood-glucose meter #1 each 11/20/19 01/10/22 Unknown History pen needle, diabetic 33 gauge x #100 each 05/23/20 01/10/22 Unknown Rx 5/32 lancets 33 gauge (OneTouch Delica #100 each 06/15/20 01/10/22 Unknown Rx Lancets) oxygen-air delivery systems 05/10/21 01/10/22 Unknown History levalbuterol tartrate 45 2 inh INHALATION Q6H 30 Days #15 g 11/08/21 01/10/22 01/09/22 Rx mcg/actuation aerosol inhaler amlodipine 5 mg tablet 5 mg PO DAILY #30 tab 11/23/21 01/10/22 01/09/22 Rx cetirizine 10 mg tablet 10 mg PO DAILY #30 tab 11/23/21 01/10/22 01/09/22 Rx doxepin 100 mg capsule 100 mg PO TID PRN #90 cap 11/23/21 01/10/22 01/09/22 Rx duloxetine 60 mg capsule,delayed 60 mg PO BID #60 cap 11/23/21 01/10/22 01/09/22 Rx release (Cymbalta) hydroxyzine pamoate 50 mg capsule 50 mg PO .at bedtime #30 cap 11/23/21 01/10/22 01/09/22 Rx irbesartan 300 mg tablet 300 mg PO DAILY #30 tab 11/23/21 01/10/22 01/09/22 Rx pantoprazole 40 mg tablet,delayed 40 mg PO BID #60 tab 0401/10/22 01/09/22 Rx release propranolol 20 mg tablet 20 mg PO BID #60 tab 11/23/21 01/10/22 01/09/22 Rx sitagliptin 100 mg tablet (Januvia) 100 mg PO DAILY #30 tab 11/23/21 01/10/22 01/09/22 Rx blood-glucose meter #1 ea 12/06/21 01/10/22 Unknown Rx lancets 30 gauge and blood glucose #200 ea 12/06/21 01/10/22 Unknown Rx strips combo pack rivaroxaban 20 mg tablet (Xarelto) 20 mg PO DAILY #30 tab 12/06/21 01/10/22 01/07/22 Rx Allergies Allergy/AdvReac Type Severity Reaction Status Date / Time hydrocodone Allergy Unknown Itching Verified 01/10/22 10:39 alcohol Allergy Unknown Verified 01/10/22 10:39 aspirin AdvReac Severe ADR-Cramping Verified 01/10/22 10:39 of the Muscles metformin AdvReac Severe ADR-Diarrhe Verified 01/10/22 10:39 a [facility] Anesthesia Medical History Anxiety Atypical chest pain the EKG revealed a normal sinus rhythm with possible old inferior wall myocardial infarction. No significant ST-T changes. Benign essential hypertension with target blood pressure below 140/90 Bilateral carpal tunnel syndrome Cervical spondylosis with myelopathy and radiculopathy Chronic deep vein thrombosis of lower extremity Right Chronic musculoskeletal pain Chronic obstructive pulmonary disease, unspecified Controlled diabetes mellitus with hyperglycemia, with long-term current use of insulin Controlled diabetes mellitus with hyperglycemia, without long-term current use of insulin Cubital tunnel syndrome, bilateral ROGEL (dyspnea on exertion) Dyslipidemia Environmental and seasonal allergies History of intravenous drug use in remission Loose body in elbow joint Neuropathy Obesity DMITRIY (obstructive sleep apnea) Osteoarthritis of elbows, bilateral Osteoarthritis of knees, bilateral Psychiatric care Surgical History History of cholecystectomy History of knee surgery History of thumb surgery Family History Other CVA (cerebrovascular accident due to intracerebral hemorrhage) Heart disease Hypertension Lung disease Social History Smoking and tobacco status: former smoker Quit status (tobacco): has quit using tobacco Year quit tobacco: 2014 - 2PPD x 45 Years Smoking risk assessment/counseling performed?: No Alcohol intake: never Desire information about alcohol rehabilitation?: No Counseling given: No Desire information about substance/drug rehabilitation?: No Counseling given: No Lives independently: Yes Household members: spouse Marital status: Current occupational status: disabled History of recent travel: No Current gender identity: Male Data Anesthesia Cardiac Studies: Sestamibi Stress Test (Cardiology) 05/30/20
[2022-01-10] MEDS: sodium chloride 0.9% 1,000 ML 30 ML IV (11:14)
--- NOTE | 2022-01-10 11:14 | ANES.PREANE2 ---
Pre-Anesthetic Assessment Height/Weight: Height 1.83 m Weight 140.614 kg Temp Pulse Resp BP Pulse Ox 98 F 74 20 H 157/92 95 01/10/22 11:02 01/10/22 11:02 01/10/22 11:02 01/10/22 11:02 01/10/22 11:02 Preop Diagnosis: History of Werner's esophagitis Operation Date: 01/10/22 11:30 Proposed Procedures p EGD [id number],[id number](Not Applicable) - Ari Sandhu MD Last intake: Intake Last Liquid Date 01/09/22 Last Liquid Time 23:30 Last Solid Date 01/09/22 Last Solid Time 19:00 Social No alcohol and No tobacco Airway Submandibular: within normal limits Cervical ROM: within normal limits Mallampati: Class II Dentition: full Comments: Comments: patient states he has had tracheal trauma and has the sensation of things getting stuck in his throat. He has been evaluated by ENT without intervention. Has had successful general anesthetics. Pulmonary Chronic Obstructive Pulmonary Disease, Sleep Apnea and Shortness of Breath CV/HEM Unstable Angina and Hypertension Angina reported seen by Dr. Deng stress test recommended. Prior stress test performed unremarkable 2019. Previous Angiogram non suggestive of CAD. Patient educated of risk of anesthesia and wishes to proceed inspite of his cardiac risk. underwent a MAC 10/16 without incident. None reported Hepatic None reported GI Gastroesophageal Reflux Disease sensation of food getting stuck. Dysphagia Metabolic Diabetes Mellitus, Hyperlipidemia and Morbid Obesity Musc/skel Lower Back Pain and Osteoarthritis/DJD Neuropsych Transient Ischemic Attack (describes a event that fits TIA 2019) DVT in right leg. Anesthetic Plan ASA status: 4 Anesthesia: General Medications/Allergies Home Medications Medication Instructions Recorded Confirmed Last Taken Type blood-glucose meter #1 each 11/20/19 01/10/22 Unknown History pen needle, diabetic 33 gauge x #100 each 05/23/20 01/10/22 Unknown Rx 5/32 lancets 33 gauge (OneTouch Delica #100 each 06/15/20 01/10/22 Unknown Rx Lancets) oxygen-air delivery systems 05/10/21 01/10/22 Unknown History levalbuterol tartrate 45 2 inh INHALATION Q6H 30 Days #15 g 11/08/21 01/10/22 01/09/22 Rx mcg/actuation aerosol inhaler amlodipine 5 mg tablet 5 mg PO DAILY #30 tab 11/23/21 01/10/22 01/09/22 Rx cetirizine 10 mg tablet 10 mg PO DAILY #30 tab 11/23/21 01/10/22 01/09/22 Rx doxepin 100 mg capsule 100 mg PO TID PRN #90 cap 11/23/21 01/10/22 01/09/22 Rx duloxetine 60 mg capsule,delayed 60 mg PO BID #60 cap 11/23/21 01/10/22 01/09/22 Rx release (Cymbalta) hydroxyzine pamoate 50 mg capsule 50 mg PO .at bedtime #30 cap 11/23/21 01/10/22 01/09/22 Rx irbesartan 300 mg tablet 300 mg PO DAILY #30 tab 11/23/21 01/10/22 01/09/22 Rx pantoprazole 40 mg tablet,delayed 40 mg PO BID #60 tab 11/23/21 01/10/22 01/09/22 Rx release propranolol 20 mg tablet 20 mg PO BID #60 tab 11/23/21 01/10/22 01/09/22 Rx sitagliptin 100 mg tablet (Januvia) 100 mg PO DAILY #30 tab 11/23/21 01/10/22 01/09/22 Rx blood-glucose meter #1 ea 12/06/21 01/10/22 Unknown Rx lancets 30 gauge and blood glucose #200 ea 12/06/21 01/10/22 Unknown Rx strips combo pack rivaroxaban 20 mg tablet (Xarelto) 20 mg PO DAILY #30 tab 12/06/21 01/10/22 01/07/22 Rx Allergies Allergy/AdvReac Type Severity Reaction Status Date / Time hydrocodone Allergy Unknown Itching Verified 01/10/22 10:39 alcohol Allergy Unknown Verified 01/10/22 10:39 aspirin AdvReac Severe ADR-Cramping Verified 01/10/22 10:39 of the Muscles metformin AdvReac Severe ADR-Diarrhe Verified 01/10/22 10:39 a Current Medications Generic Name Dose Route Start Last Admin Trade Name Freq PRN Reason Stop Dose Admin Sodium Chloride 1,000 mls @ 30 mls/hr 01/10/22 10:45 01/10/22 11:14 Sodium Chloride 0.9% IV 01/11/22 10:44 30 mls/hr .Q24H MIGUEL Administration PFSH Anesthesia Medical History Anxiety Atypical chest pain the EKG revealed a normal sinus rhythm with possible old inferior wall myocardial infarction. No significant ST-T changes. Benign essential hypertension with target blood pressure below 140/90 Bilateral carpal tunnel syndrome Cervical spondylosis with myelopathy and radiculopathy Chronic deep vein thrombosis of lower extremity Right Chronic musculoskeletal pain Chronic obstructive pulmonary disease, unspecified Controlled diabetes mellitus with hyperglycemia, with long-term current use of insulin Controlled diabetes mellitus with hyperglycemia, without long-term current use of insulin Cubital tunnel syndrome, bilateral ROGEL (dyspnea on exertion) Dyslipidemia Environmental and seasonal allergies History of intravenous drug use in remission Loose body in elbow joint Neuropathy Obesity DMITRIY (obstructive sleep apnea) Osteoarthritis of elbows, bilateral Osteoarthritis of knees, bilateral Psychiatric care Surgical History History of cholecystectomy History of knee surgery History of thumb surgery Family History Other CVA (cerebrovascular accident due to intracerebral hemorrhage) Heart disease Hypertension Lung disease Social History Smoking and tobacco status: former smoker Quit status (tobacco): has quit using tobacco Year quit tobacco: 2013 2PPD x 45 Years Smoking risk assessment/counseling performed?: No Alcohol intake: never Desire information about alcohol rehabilitation?: No Counseling given: No Desire information about substance/drug rehabilitation?: No Counseling given: No Lives independently: Yes Household members: spouse Marital status: Current occupational status: disabled History of recent travel: No Current gender identity: Male Data Anesthesia Cardiac Studies: Sestamibi Stress Test (Cardiology) 05/30/20
--- NOTE | 2022-01-10 12:29 | PC.NURSE ---
pt belched and spit up blood tinge sputum. instructed to call dr. office or go to ER if itis bright red and doesn't stop.
--- NOTE | 2022-01-10 12:48 | PC.NURSE ---
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 I asked pt if he was hurting now and he said a little i told him we should go back to room and see if it gets worse . pt states no i will be ok. if it gets worse i will come back. i told to to return to ER or call gi lab or dr. vo if it gets worse.
--- NOTE | 2022-01-10 13:38 | ANE.PACU2 ---
Inpatient post-anesthesia follow up: Airway intact: Yes Vital signs: Temperature 97 F Pulse Rate 77 Respiratory Rate 18 Blood Pressure 138/67 Pulse Oximetry 96 Oxygen Delivery Me thod Room Air Oxygen Flow Rate 4 Fraction of Inspir ed Oxygen Hydration adequate: Yes Nausea and vomiting: No Pain level: 1 Mental status: Baseline
== END 2022-01-10 12:36 | disposition home or self-care (01) ==
PROVIDERS: PCP Nurse Practitioner; Visit Provider Surgery
PROC: 0DJ08ZZ Inspection of Upper Intestinal Tract, Via Natural or Artificial Opening Endoscopic (ICD-10-PCS; CPT 43235; principal; 2022-01-10 11:30)
DX: K22.70 Barrett's esophagus without dysplasia (principal); K29.70 Gastritis, unspecified, without bleeding; F41.9 Anxiety disorder, unspecified; I10 Essential (primary) hypertension; Z86.718 Personal history of other venous thrombosis and embolism; E11.65 Type 2 diabetes mellitus with hyperglycemia; E11.40 Type 2 diabetes mellitus with diabetic neuropathy, unspecified; E78.5 Hyperlipidemia, unspecified; E66.01 Morbid (severe) obesity due to excess calories; Z68.41 Body mass index [BMI] 40.0-44.9, adult; G47.33 Obstructive sleep apnea (adult) (pediatric); Z87.891 Personal history of nicotine dependence; Z86.73 Personal history of transient ischemic attack (TIA), and cerebral infarction without residual deficits
CPT/HCPCS: 43239; 88305; J7030

== ENCOUNTER → 2022-03-05 10:46 | Outpatient (BNVA) | payer MEDICAID, SELFPAY | PROVIDERS: PCP Nurse Practitioner; Visit Provider Nurse Practitioner Family | DX: E11.65 Type 2 diabetes mellitus with hyperglycemia (principal); E78.5 Hyperlipidemia, unspecified; I10 Essential (primary) hypertension; Z79.4 Long term (current) use of insulin; K22.70 Barrett's esophagus without dysplasia; F41.9 Anxiety disorder, unspecified; J30.89 Other allergic rhinitis; I82.509 Chronic embolism and thrombosis of unspecified deep veins of unspecified lower extremity; R31.9 Hematuria, unspecified; W19.XXXA Unspecified fall, initial encounter; Y92.009 Unspecified place in unspecified non-institutional (private) residence as the place of occurrence of the external cause; M54.50 Low back pain, unspecified; J44.9 Chronic obstructive pulmonary disease, unspecified; E66.01 Morbid (severe) obesity due to excess calories; Z68.41 Body mass index [BMI] 40.0-44.9, adult; M17.0 Bilateral primary osteoarthritis of knee | CPT/HCPCS: 80053; 80061; 81000; 83036; 83721; 84443; 85025 ==

== ENCOUNTER → 2022-03-06 14:23 | Outpatient (BNVA) | payer MEDICAID, SELFPAY | PROVIDERS: PCP Nurse Practitioner; Visit Provider Nurse Practitioner | DX: M54.50 Low back pain, unspecified (principal); R31.9 Hematuria, unspecified; Z91.81 History of falling | CPT/HCPCS: 72100; 72220 ==

== ENCOUNTER → 2022-04-24 14:11 | Outpatient (BNVA) | payer MEDICAID, SELFPAY | PROVIDERS: PCP Nurse Practitioner; Visit Provider Specialist | DX: E66.01 Morbid (severe) obesity due to excess calories (principal); Z68.41 Body mass index [BMI] 40.0-44.9, adult; M19.90 Unspecified osteoarthritis, unspecified site; M47.12 Other spondylosis with myelopathy, cervical region; M47.22 Other spondylosis with radiculopathy, cervical region; E11.42 Type 2 diabetes mellitus with diabetic polyneuropathy; E11.65 Type 2 diabetes mellitus with hyperglycemia; Z79.84 Long term (current) use of oral hypoglycemic drugs; Z68.39 Body mass index [BMI] 39.0-39.9, adult; Z86.73 Personal history of transient ischemic attack (TIA), and cerebral infarction without residual deficits | CPT/HCPCS: 99204; 99205 ==

== ENCOUNTER → 2022-04-30 14:54 | Outpatient (BNVA) | payer MEDICAID, SELFPAY | PROVIDERS: PCP Nurse Practitioner; Referring Provider Nurse Practitioner Family; Visit Provider Physician Assistant | DX: M54.9 Dorsalgia, unspecified (principal); M53.3 Sacrococcygeal disorders, not elsewhere classified; M46.1 Sacroiliitis, not elsewhere classified; S39.92XA Unspecified injury of lower back, initial encounter; W07.XXXA Fall from chair, initial encounter | CPT/HCPCS: 72110; 99203 ==

== ENCOUNTER 2022-05-07 09:18 | Outpatient (CLI) | payer MEDICAID, SELFPAY ==
[2022-05-07 09:42] VITALS: BMI 40.0
--- NOTE | 2022-05-07 09:46 | ECG_ITS ---
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 Interpretive Statements NAME OF STUDY: LEXISCAN SESTAMIBI STRESS TEST INDICATION: Chest Pain; Shortness of Breath PROCEDURE: At the baseline, the blood pressure was 149/77 mmHg with a heart rate of 80 bpm. The electrocardiogram showed normal sinus rhythm, normal axis with nonspecific ST changes. The Lexiscan was infused over a period of 20 seconds. A total of 0.4 milligrams of Lexiscan was infused. The stress phase was continued for a total of 5 minutes. Heart rate at the end of the stress phase was 83 bpm with a blood pressure of 123/66 mmHg. The EKG at the peak infusion revealed sinus rhythm with no significant ST-T wave changes. The study was terminated due to protocol completion. Sestamibi was injected 20 seconds after the Lexiscan infusion. Blood pressure at the end of the recovery phase was 123/74 mmHg with a heart rate of 83 beats per minute. CONCLUSION: 1. No significant EKG changes with the LexiScan infusion. 2. No LexiScan induced chest pain or cardiac arrhythmia. 3. Normal blood pressure and heart rate response. 4. Sestamibi/sestamibi perfusion scan pending; see separate report. RESULTS TO DR EDMONDSON AND STEVEN CASTRO Electronically Signed On 05-08-2022 15:48:05 CDT by Jennifer Morton M.D. [id number]
--- NOTE | 2022-05-07 09:47 | NMCV_ITS ---
NM irma perf SPECT r/s* [id number] Yair Urrutia Age: 56 Gender: M : 1965 Exam Date: 05/07/2022 11:19 Ordering Phys: Darlene Deng MD ([email or web address]) Technologist: CADENCE Adamson Exam Location: [facility] [place] Indications: CHEST PAIN, SHORTNESS OF BREATH STRESS TEST Please see separate stress test report in [facility] for full findings IMAGE PROTOCOL Rest/Stress 1 Lexiscan Day Radiopharmaceutical Dose (mCi) Administration Site Administered by Rest: Tc-99m 10.9 IV CADENCE Cali Sestamibi Stress:Tc-99m 32.6 IV CADENCE Cali Sestamibi Rest: 07-May-2022 60 Discovery 630 Stress: 07-May-2022 30 Discovery 630 0.4mg Lexiscan. Supine position only as patient was unable to lay prone. SPECT RESULTS Technical Quality: Good Raw Data Analysis: Normal Image Corrections: Patient motion artifact - motion correction applied Summed Stress Score: 2 Summed Rest Score: 2 Summed Difference Score: 1 PERFUSION FINDINGS Small sized perfusion abnormality of mild severity of mid inferior and mid inferoseptal wall on rest images with improved tracer uptake in inferoseptal wall on stress images. FUNCTIONAL RESULTS (calculated via Gated SPECT) Stress Image LV EF (%): 69 Stress EDV (mL):90 TID: 1.03 Stress ESV (mL):28 FUNCTIONAL FINDINGS: The left ventricle is normal in size. Transient Ischemia Dilatation of 1. There is normal left ventricular systolic function. The left ventricular ejection fraction is normal with a value of 69%. There is normal left ventricular wall thickening. Normal end-diastolic and end-systolic volume. IMPRESSIONS 1. Myocardial perfusion imaging is normal. Attenuation artifact noted in inferior and inferoseptal [place]. 2. Overall left ventricular systolic function is normal without regional wall motion abnormalities, LVEF=69%. 3. No EKG changes with Lexiscan infusion. Refer to separate report for details. Jennifer Morton MD (Electronically Signed) Final Date: 08 May 2022 15:57 S
[2022-05-07] MEDS: regadenoson 0.4 Mg/5 ml Syringe IVP (12:00)
[2022-05-07 12:10] VITALS: BP 126/86; PULSE 83
== END 2022-05-07 09:19 | disposition home or self-care (01) ==
LOC: CDL 09:20
PROVIDERS: PCP Nurse Practitioner; Visit Provider Internal Medicine Cardiovascular Disease
DX: R06.02 Shortness of breath (principal); R07.9 Chest pain, unspecified
CPT/HCPCS: 78452; 93017; A9500; J2785

== ENCOUNTER → 2022-05-16 13:36 | Outpatient (BNVA) | payer MEDICAID, SELFPAY | PROVIDERS: PCP Nurse Practitioner; Visit Provider Nurse Practitioner Family | DX: I10 Essential (primary) hypertension (principal) | CPT/HCPCS: 99213 ==

== ENCOUNTER 2022-05-20 12:52 | Outpatient (CLI) | payer MEDICAID, SELFPAY ==
--- NOTE | 2022-05-20 13:00 | MR_ITS ---
WS: [id number] MRA HEAD TECHNIQUE: Axial 3-D TOF images obtained with axial images and axial, sagittal, and coronal 2-D refor matted images. CLINICAL INFORMATION: R20.0 - Anesthesia of skin COMPARISON: None. FINDINGS: Distal vertebral arteries are patent. Basilar artery is patent. Normal vascularity to the [place] territo ry bilaterally. Both ICAs are patent at the skull base. Normal vascularity to the WILLA and MCA territories bilaterally. No evidence of proximal flow limiting stenosis or aneurysm. MR/MR angio head wo con [id number] IMPRESSION: Normal intracranial MRA.
--- NOTE | 2022-05-20 13:15 | MR_ITS ---
WS: [id number] MRI HEAD WITHOUT CONTRAST TECHNIQUE: Sagittal T1, T2 axial, T2 axial FLAIR, axial and coronal T1 images, axial susceptibility w eighted imaging, axial diffusion weighted images, and coronal T2 images were obtained. CLINICAL INFORMATION: R20.0 - Anesthesia of skin COMPARISON: CT July 19, 2020 FINDINGS: No evidence of restricted diffusion to suggest acute ischemia. Ventricular system and basal cisterns are patent. Encephalomalacia in the LEFT parietal vertex small amount of gliosis likely due to prior infarct. This is unchanged since 2019. Mild small vessel changes. Mild parenchymal volume loss. Jessenia l posterior fossa. Normal vascular flow voids at the skull base. No extra-axial fluid collections. No evidence of mass or mass effect. Mild mucosal thickening in the ethmoid air cells. Mastoid cells well aerated. No hemosiderin on susce ptibly weighted images. Normal optic chiasm and pituitary infundibulum. Temporal lobes and hippocampa l formations are normal in appearance. No other suspicious findings. MR/MR head wo con* [id number] IMPRESSION: 1. No evidence of restricted diffusion to suggest acute ischemia. 2. Encephalomalacia in the LEFT parietal vertex with a small amount of gliosis likely due to prior infarct. This is unchanged since 2019. 3. Mild small vessel changes. Mild parenchymal volume loss. 4. Mild mucosal thickening in the ethmoid air cells. Mastoid air cells well ae rated. 5. No hemosiderin on susceptibly weighted images. 6. Temporal lobes and hippocampal formations are normal in appearance. 7. No other suspicious findings.
== END 2022-05-20 12:53 | disposition home or self-care (01) ==
LOC: RAD 12:52
PROVIDERS: PCP Nurse Practitioner Family; Visit Provider Specialist
DX: R20.0 Anesthesia of skin (principal); R20.2 Paresthesia of skin; G93.89 Other specified disorders of brain; R58 Hemorrhage, not elsewhere classified
CPT/HCPCS: 36415; 70544; 70551; 82607; 83036

== ENCOUNTER 2022-05-21 | Outpatient (CLI) | payer MEDICAID, SELFPAY ==
[2022-05-21 15:37] LABS: Basophils # 0.1 10^3/uL (0.0-0.1); Basophils % 0.9 %; Eosinophils # 0.3 10^3/uL (0.0-0.8); Eosinophils % 3.9 %; Hematocrit 39.8 % (42.0-52.0); Hemoglobin 13.3 g/dL (11.7-16.6); Lymphocytes # 2.3 10^3/uL (0.8-4.8); Lymphocytes % 34.2 %; Mean Corpuscular HGB Conc 33.4 g/dL (30.0-36.0); Mean Corpuscular Volume 89.8 fl (80-94); Mean Platelet Volume 9.6 fL (7.4-10.4); Monocytes # 0.5 10^3/uL (0.2-0.9); Monocytes % 6.6 %; Neutrophils # 3.67 10^3/uL (1.8-7.7); Neutrophils % 53.7 %; Nucleated Red Blood Cells % 0 %; Platelet Count 220 10^3/cmm (130-400); Red Blood Count 4.43 10^6/uL (4.1-5.3); White Blood Count 6.8 10^3/uL (4.0-10.0)
[2022-05-21 16:02] LABS: Anion Gap 17.5 (5-19); Blood Urea Nitrogen 12 mg/dL (6-20); Calcium 9.2 mg/dL (8.5-10.5); Carbon Dioxide 23 mmol/L (22-29); Chloride 97 mmol/L (98-107); Glomerular Filtration Rate 86.7 mL/min (90-130); Glucose 309 mg/dL (65-115); Osmolality Calculated 287 mOsm/kg (285-295); Potassium 4.5 mmol/L (3.5-5.1); Sodium 133 mmol/L (136-145)
== END 2022-05-21 23:00 | disposition home or self-care (01) ==
LOC: CCL 06-25 01:12
PROVIDERS: PCP Nurse Practitioner Family; Visit Provider Internal Medicine Cardiovascular Disease
DX: R06.00 Dyspnea, unspecified (principal); R07.89 Other chest pain
CPT/HCPCS: 80048; 85025; 86850; 86900

== ENCOUNTER → 2022-05-30 12:43 | Outpatient (BNVA) | payer MEDICAID, SELFPAY | PROVIDERS: PCP Nurse Practitioner Family; Visit Provider Nurse Practitioner Family | DX: E11.65 Type 2 diabetes mellitus with hyperglycemia (principal); Z79.4 Long term (current) use of insulin | CPT/HCPCS: 83036 ==

== ENCOUNTER → 2022-06-10 16:24 | Outpatient (BNVA) | payer MEDICAID, SELFPAY | PROVIDERS: PCP Nurse Practitioner Family; Visit Provider Nurse Practitioner Family | DX: R31.9 Hematuria, unspecified (principal); N52.9 Male erectile dysfunction, unspecified; Z23 Encounter for immunization | CPT/HCPCS: 81000 ==

== ENCOUNTER 2022-06-14 16:27 | Outpatient (CLI) | payer MEDICAID, SELFPAY ==
--- NOTE | 2022-06-14 17:00 | MR_ITS ---
WS: [id number] MRI SACRUM without CONTRAST. COMPARISON: None Multiplanar, multisequence imaging is performed without contrast. History: Multiple falls. Low back and sacral pain. No edema or prior fracture involving the sacrum. The signal within the sacrum is normal. No adjacent destructive bone lesions. Sacral foramina are patent. Fat within the sacral foramina is not displaced . Nerve roots are distributed normally. The SI joints are normal. No erosions or edema. No widening. The visualized soft tissues in the perirectal soft tissues are negative. Lower spine is negative for any large disc protrusions or compression of the nerve roots. MR/MR sacrum wo con* [id number] IMPRESSION: 1. No sacral fractures or edema. 2. No insufficiency fracture. 3. No mass or bone destruction.
== END 2022-06-14 16:28 | disposition home or self-care (01) ==
LOC: RAD 16:28
PROVIDERS: PCP Nurse Practitioner Family; Visit Provider Nurse Practitioner Family
DX: M53.3 Sacrococcygeal disorders, not elsewhere classified (principal); M54.50 Low back pain, unspecified; R29.6 Repeated falls
CPT/HCPCS: 72148

== ENCOUNTER → 2022-07-02 12:58 | Outpatient (BNVA) | payer MEDICAID, SELFPAY | PROVIDERS: PCP Nurse Practitioner Family; Visit Provider Physician Assistant | DX: M46.1 Sacroiliitis, not elsewhere classified (principal); S39.92XD Unspecified injury of lower back, subsequent encounter; W07.XXXD Fall from chair, subsequent encounter | CPT/HCPCS: 99213 ==

== ENCOUNTER 2022-08-27 14:54 | Outpatient (CLI) | payer MEDICAID, SELFPAY ==
--- NOTE | 2022-08-27 15:15 | MR_ITS ---
WS: [id number] MRI LUMBAR SPINE NONCONTRAST TECHNIQUE: Sagittal T1, T2 and STIR imaging. Axial T1. Axial T2 imaging not completed due to pain. CLINICAL INFORMATION: lumbar pain COMPARISON: MRI 2006 FINDINGS: Mild disc bulging in the mid cervical spinal senior underwriter imaging at C3-C4 C4-C5 C5-C6 and C6-C7 with mild c entral canal stenosis. Reversal normal cervical lordosis. This can be further evaluated with cervical spine MRI. Mild lumbar curve. No acute compression. Slight anterolisthesis L4 on L5. This is new since 2005. L1-L2: Normal. L2-L3: Mild facet arthropathy. Spinal canal and foramen are patent. L3-L4: Mild annular bulging with slight effacement of ventral thecal sac. Mild facet arthropathy. Mil d LEFT foraminal narrowing. L4-L5: Grade 1 anterolisthesis. Mild annular bulging with mild central canal stenosis. Impingement tr aversing L5 nerve roots bilaterally. Moderate facet arthropathy. Small amount of edema in the L4-L5 f acets. Small bilateral foraminal protrusions with mild bilateral foraminal narrowing. L5-S1: Mild annular bulging with a tiny annular fissure. Tiny central protrusion. Moderate facet arth ropathy. Spinal canal and foramen are patent. Visualized pelvic bony structures: Normal. Paravertebral soft tissues: Normal. MR/MR lumbar spine wo con* [id number] IMPRESSION: Axial T2 imaging not performed due to patient's pain 1. Mild lumbar curve. No acute compression. Grade 1 anterolisthesis L4 on L5 i s new since 2005 measuring 2 mm. 2. Mild annular bulging L4-L5 impinges the traversing L5 nerve roots bilateral ly with mild central canal stenosis. Mild LEFT greater than RIGHT foraminal ibis rowing at this level. 3. Moderate facet arthropathy L4-L5 with small facet effusions can be seen wit h instability or mild synovitis. 4. Mild annular bulging L3-L4. Tiny LEFT foraminal protrusion with mild LEFT f oraminal narrowing. 5. Mild annular bulging L5-S1 with a tiny shallow central protrusion with a sm all annular fissure. Spinal canal and foramen are patent at this level. 6. Moderate facet arthropathy L4-L5 and L5-S1. 7. Small disc protrusions in the cervical spine senior underwriter imaging with mild centra l canal stenosis. This can be further evaluated with cervical spine MRI.
== END 2022-08-27 14:55 | disposition home or self-care (01) ==
LOC: RAD 14:57
PROVIDERS: PCP Nurse Practitioner Family; Visit Provider Physician Assistant
DX: M46.1 Sacroiliitis, not elsewhere classified (principal); M48.061 Spinal stenosis, lumbar region without neurogenic claudication; M47.816 Spondylosis without myelopathy or radiculopathy, lumbar region; M47.817 Spondylosis without myelopathy or radiculopathy, lumbosacral region; M50.20 Other cervical disc displacement, unspecified cervical region
CPT/HCPCS: 72148

== ENCOUNTER → 2022-08-29 15:25 | Outpatient (BNVA) | payer MEDICAID, SELFPAY | PROVIDERS: PCP Nurse Practitioner Family; Visit Provider Nurse Practitioner Family | DX: E11.65 Type 2 diabetes mellitus with hyperglycemia (principal); Z79.4 Long term (current) use of insulin; R31.9 Hematuria, unspecified; I10 Essential (primary) hypertension; I82.509 Chronic embolism and thrombosis of unspecified deep veins of unspecified lower extremity; F41.9 Anxiety disorder, unspecified; K22.70 Barrett's esophagus without dysplasia; J30.89 Other allergic rhinitis | CPT/HCPCS: 80053; 80061; 83036; 84443; 85025 ==

== ENCOUNTER 2022-10-11 14:59 | Outpatient (CLI) | payer MEDICAID, SELFPAY ==
[2022-10-11] MEDS: iohexol 350 mg/mL 500 mL Btl (per mL) PO (15:30)
--- NOTE | 2022-10-11 15:30 | CT_ITS ---
WS: [id number] CT CHEST, ABDOMEN AND PELVIS WITH CONTRAST. HISTORY: R31.9 - Hematuria, unspecified TECHNIQUE: Contiguous 5 mm axial imaging performed through the chest, abdomen and pelvis with IV cont rast, oral contrast has been provided. Coronal and sagittal reformats chest. Coronal and sagittal ref ormats through the abdomen and pelvis. All CT scans at [facility] use at least one of these d ose optimization techniques: automated exposure control; mA and/or kV adjustment per patient size (in cludes targeted exams where dose is matched to clinical indication); or iterative reconstruction. CONTRAST: Omnipaque 350; 95 mL IV. DLP: 2067.66 mGy.cm COMPARISON: 07/12/2021, 04/13/[address]: Mild pulmonary hyperexpansion. There is mild peripheral bilateral groundglass opacification s greatest LEFT upper LEFT lower lung meza. Stable small cluster of nodules at the RIGHT lung base with the largest nodule measuring 8 mm. No new or enlarging nodule or mass. Normal size pulmonary art mumtaz and aorta. Mild atherosclerosis aorta. No mediastinal or hilar adenopathy. Small amount of contra st noted in the esophagus. Abdomen CT: Normal size liver. No enhancing masses. Normal portal vein. Prior cholecystectomy. Normal spleen. Normal adrenal glands. Normal pancreas. Very minimal perinephric stranding around each kidne y with no obstruction. No enhancing mass or calcification identified. There is a calcification in the RIGHT ureter measuring 4 mm. Calcification is at the level of L4. There is mild periureteral strandi ng but no high-grade stenosis. Mild atherosclerosis aorta. Stomach is normally distended with contrast. No small bowel obstruction. Mild diffuse constipation. N ormal appendix. No ascites or adenopathy. Pelvic CT: Urinary bladder is not distended. No free fluid in the pelvis. No adenopathy. Moderate bilateral hip joint arthritis, RIGHT greater than LEFT. CT/CT chest abdpel w/*[id number] IMPRESSION: 1. Mid RIGHT ureteral calcification measuring 4 mm. Mild periureteral strandin g with no obstruction. 2. Stable cluster of subcentimeter nodules at the RIGHT lung base. No change s gio 07/12/2021. 3. Prior cholecystectomy. 4. Mild peripheral groundglass attenuation. Can be seen with small vessel pul monary disease. Notified Becca at [facility] 10/14/2022 11:52 AM.
[2022-10-11] MEDS: iohexol 350 mg/mL 500 mL Btl (per mL) IV (16:13)
== END 2022-10-11 15:00 | disposition home or self-care (01) ==
LOC: RAD 14:59
PROVIDERS: PCP Nurse Practitioner Family; Visit Provider Nurse Practitioner Family
DX: R31.9 Hematuria, unspecified (principal); N28.89 Other specified disorders of kidney and ureter; R91.8 Other nonspecific abnormal finding of lung field; Z90.49 Acquired absence of other specified parts of digestive tract
CPT/HCPCS: 71260; 74177; Q9967

== ENCOUNTER → 2022-10-15 14:33 | Outpatient (BNVA) | payer MEDICAID, SELFPAY | PROVIDERS: PCP Nurse Practitioner Family; Visit Provider Otolaryngology | DX: H91.93 Unspecified hearing loss, bilateral (principal); K22.70 Barrett's esophagus without dysplasia; R13.10 Dysphagia, unspecified | CPT/HCPCS: 99213 ==

== ENCOUNTER → 2022-10-16 10:05 | Outpatient (BNVA) | payer MEDICAID, SELFPAY | PROVIDERS: PCP Nurse Practitioner Family; Visit Provider Nurse Practitioner Family | DX: R31.9 Hematuria, unspecified (principal) | CPT/HCPCS: 81000; 84153 ==

== ENCOUNTER → 2022-10-29 13:04 | Outpatient (BNVA) | payer MEDICAID, SELFPAY | PROVIDERS: PCP Nurse Practitioner Family; Visit Provider Internal Medicine Cardiovascular Disease | DX: R07.9 Chest pain, unspecified (principal); I10 Essential (primary) hypertension; E78.5 Hyperlipidemia, unspecified; G47.33 Obstructive sleep apnea (adult) (pediatric); Z86.73 Personal history of transient ischemic attack (TIA), and cerebral infarction without residual deficits; E11.42 Type 2 diabetes mellitus with diabetic polyneuropathy; Z79.84 Long term (current) use of oral hypoglycemic drugs | CPT/HCPCS: 99214 ==

== ENCOUNTER → 2022-11-14 12:17 | Outpatient (BNVA) | payer MEDICAID, SELFPAY | PROVIDERS: PCP Nurse Practitioner Family; Visit Provider Specialist | DX: G30.9 Alzheimer's disease, unspecified (principal); F02.80 Dementia in other diseases classified elsewhere, unspecified severity, without behavioral disturbance, psychotic disturbance, mood disturbance, and anxiety; E66.01 Morbid (severe) obesity due to excess calories; G47.33 Obstructive sleep apnea (adult) (pediatric); Z68.41 Body mass index [BMI] 40.0-44.9, adult | CPT/HCPCS: 96116; 99215 ==

== ENCOUNTER → 2022-11-28 14:50 | Outpatient (BNVA) | payer MEDICAID, SELFPAY | PROVIDERS: PCP Nurse Practitioner Family; Visit Provider Physician Assistant | DX: M43.16 Spondylolisthesis, lumbar region (principal) | CPT/HCPCS: 99213 ==

== ENCOUNTER → 2022-12-03 15:01 | Outpatient (BNVA) | payer MEDICAID, SELFPAY | PROVIDERS: PCP Nurse Practitioner Family; Visit Provider Nurse Practitioner Family | DX: E11.65 Type 2 diabetes mellitus with hyperglycemia (principal); Z79.4 Long term (current) use of insulin | CPT/HCPCS: 80053; 80061; 83036; 84443; 85025 ==

== ENCOUNTER → 2022-12-23 10:18 | Outpatient (BNVA) | payer MEDICAID, SELFPAY | PROVIDERS: PCP Nurse Practitioner Family; Visit Provider Internal Medicine Pulmonary Disease | DX: G47.33 Obstructive sleep apnea (adult) (pediatric); J42 Unspecified chronic bronchitis; J38.3 Other diseases of vocal cords; R91.8 Other nonspecific abnormal finding of lung field | CPT/HCPCS: 99214 ==

== ENCOUNTER → 2023-03-04 14:51 | Outpatient (BNVA) | payer MEDICAID, SELFPAY | PROVIDERS: PCP Nurse Practitioner Family; Visit Provider Specialist | DX: G30.9 Alzheimer's disease, unspecified (principal); F02.80 Dementia in other diseases classified elsewhere, unspecified severity, without behavioral disturbance, psychotic disturbance, mood disturbance, and anxiety; G47.33 Obstructive sleep apnea (adult) (pediatric) | CPT/HCPCS: 99214 ==

== ENCOUNTER → 2023-03-06 14:09 | Outpatient (BNVA) | payer MEDICAID, SELFPAY | PROVIDERS: PCP Nurse Practitioner Family; Visit Provider Nurse Practitioner Family | DX: E11.65 Type 2 diabetes mellitus with hyperglycemia (principal); Z79.4 Long term (current) use of insulin | CPT/HCPCS: 80053; 80061; 84443; 85025 ==

== ENCOUNTER 2023-03-09 16:27 | Emergency (ER) | payer MEDICAID, SELFPAY ==
[2023-03-09 17:27] VITALS: BP 161/98; PULSE 87; RESP 18; TEMP 36.7; O2SAT 94; BMI 37.1
--- NOTE | 2023-03-09 19:05 | W.ED.WOUNDLC ---
HPI - Wound/Laceration General: Chief Complaint: Wound/Laceration Stated Complaint: fall, left foot lac Time Seen by Provider: 03/09/23 19:04 History of Present Illness: 57-year-old male patient comes in today with injury to the left foot great toe. Patient reports he was out side walking in his garden when his shoe got twisted up causing him to step out of his shoe and onto a sharp rock. Patient ended up with a laceration to the great toe. Laceration is approximately 3 cm to the sole aspect of the toe. Patient has a history of diabetes mellitus., Peripheral neuropathy, ED, GERD, hypertension, DVT Associated symptoms: Denies fever(s) Review of Systems General: Reports: 10 or more systems reviewed and unremarkable except in HPI and below Const: Denies: fever(s) Musc: Reports: extremity pain Skin/Breast: Reports: new lesions PFS ED PFSH: Medical History Anxiety Atypical chest pain the EKG revealed a normal sinus rhythm with possible old inferior wall myocardial infarction. No significant ST-T changes. Benign essential hypertension with target blood pressure below 140/90 Bilateral carpal tunnel syndrome Bleeding Cervical spondylosis with myelopathy and radiculopathy Chronic deep vein thrombosis of lower extremity Right Chronic musculoskeletal pain Chronic obstructive pulmonary disease, unspecified Controlled diabetes mellitus with hyperglycemia, with long-term current use of insulin Controlled diabetes mellitus with hyperglycemia, without long-term current use of insulin Cubital tunnel syndrome, bilateral ROGEL (dyspnea on exertion) Dyslipidemia Environmental and seasonal allergies Erectile dysfunction History of intravenous drug use in remission 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 Loose body in elbow joint Neuropathy Obesity DMITRIY (obstructive sleep apnea) Osteoarthritis of elbows, bilateral Osteoarthritis of knees, bilateral Pain management contract signed Surgical History History of cholecystectomy History of knee surgery History of thumb surgery Family History Other CVA (cerebrovascular accident due to intracerebral hemorrhage) Heart disease Hypertension Lung disease Social History Smoking and tobacco status: former smoker Quit status (tobacco): has quit using tobacco Year quit tobacco: 2013 - 2PPD x 45 Years Smoking risk assessment/counseling performed?: No Alcohol intake: never Desire information about alcohol rehabilitation?: No Counseling given: No Substance/Drug Use: never Desire information about substance/drug rehabilitation?: No Counseling given: No Lives independently: Yes Household members: spouse Marital status: Current occupational status: disabled Do you think of yourself as: Straight/Heterosexual Current gender identity: Male Physical Exam Const: COMMON NORMALS: alert HENMT: COMMON NORMALS: atraumatic HEAD & SCALP: atraumatic Neck/C-Spine: COMMON NORMALS: full ROM Resp: COMMON NORMALS: normal respiratory effort Cardio: COMMON NORMALS: regular rate RATE: regular rate Back/Pelvis: COMMON NORMALS: thoracic and lumbar spine normal to inspection Extremity: LEFT LOWER EXTREMITY: Yes foot & digits (3 cm laceration great toe, volar aspect) Neuro: SENSORIUM/ORIENTATION: Yes alert Skin: TRAUMA: laceration (Left foot) linear Procedures Laceration Laceration 1: Site: lower extremity Side (If applicable): left Size (cm): 3 Description: linear Depth: simple, single layer Local Anesthetic: lidocaine 1% Amount of anesthesia used (mL): 5 Pre-repair: wound explored and irrigated extensively Skin layer closed with: nylon Size (cm): 4-0 Number of sutures: 6 Technique: simple, interrupted Course Vital Signs: Vital signs: Vital Signs Temperature 98.0 F 03/09/23 17:27 Pulse Rate 87 03/09/23 17:27 Respiratory Rate 18 03/09/23 17:27 Blood Pressure 161/98 03/09/23 17:27 Pulse Oximetry 94 03/09/23 17:27 Oxygen Delivery Me thod Room Air 03/09/23 17:27 MDM - Wound/Laceration Medical Decision Making 57-year-old male patient comes in today with injury to the left foot. On exam patient has a laceration to the sole aspect of the great toe of the left foot. Laceration about 3 cm. No foreign body is noted. No fracture was noted. Differential diagnosis included fracture, foreign body, laceration. X-ray was unremarkable. Wound was cleaned thoroughly with irrigation of 200 mL of tap water and then the wound was approximated with 6 sutures. Patient tolerated well. Patient was placed on doxycycline for medical prophylaxis. Patient reported understanding of care plan and need for follow-up or return to the ER. Discharge Plan Discharge Condition: Stable Prescriptions: No Action (DME) pen needle, diabetic 33 gauge x 5/32 needle See Rx Instructions .ROUTE .MEDSUPPLY Qty: 100 5RF Rx Instructions: daily (DME) blood-glucose meter Kit See Rx Instructions .ROUTE .MEDSUPPLY Qty: 1 Rx Instructions: As directed sildenafil 50 mg tablet 50 mg PO DAILY PRN (Reason: sexual activity) Qty: 10 5RF Rx Instructions: administer 30 minutes to 4 hours before activity tramadol 50 mg tablet 50 mg PO .q 4-6 PRN (Reason: pain) Qty: 30 0RF (DME) Doughnut cusion See Rx Instructions .Route .MEDSUPPLY Qty: 1 0RF Rx Instructions: As directed galantamine 4 mg tablet 4 mg PO BID Qty: 60 3RF Rx Instructions: Take two tablets daily. Administer with AM and PM meals memantine [Namenda] 10 mg tablet 10 mg PO BID Qty: 180 1RF Rx Instructions: after starter pack Januvia 100 mg tablet 100 mg PO DAILY Qty: 30 2RF Xarelto 20 mg tablet 20 mg PO DAILY Qty: 30 2RF Hold Instructions: Resume on 01/16/22. propranolol 20 mg tablet 20 mg PO BID Qty: 60 2RF pantoprazole 40 mg tablet,delayed release (DR/EC) 40 mg PO BID Qty: 60 2RF irbesartan 300 mg tablet 300 mg PO DAILY Qty: 30 2RF hydroxyzine pamoate 50 mg capsule 50 mg PO .at bedtime Qty: 30 2RF Hold Instructions: Dry mouth duloxetine [Cymbalta] 60 mg capsule,delayed release(DR/EC) 60 mg PO BID Qty: 60 2RF doxepin 100 mg capsule 100 mg PO TID PRN (Reason: anxiety) Qty: 90 2RF cetirizine 10 mg tablet 10 mg PO DAILY Qty: 30 2RF amlodipine 5 mg tablet 5 mg PO DAILY Qty: 30 2RF metformin 500 mg tablet extended release 24 hr 500 mg PO BID Qty: 60 2RF (DME) lancets [OneTouch Delica Lancets] 33 gauge misc See Rx Instructions .ROUTE .MEDSUPPLY Qty: 100 2RF Rx Instructions: daily (DME) blood-glucose meter Misc See Rx Instructions .Route Qty: 1 0RF Rx Instructions: As directed (DME) lancets-blood glucose strips 30 gauge combo pack See Rx Instructions .Route Qty: 200 3RF Rx Instructions: once daily ezetimibe 10 mg tablet 10 mg PO DAILY Qty: 30 2RF memantine 5 mg tablet 5 mg PO DAILY Qty: 200 0RF Rx Instructions: 1 week each dose: 5 mg then 10 mg then 5 mg am 10 mg pm then 10 mg twice daily Referrals: Ashly Vargas FNP-C [Primary Care Provider] - Coding Level of Care Code ED Cafe Lead for Lucio Barahona
--- NOTE | 2023-03-09 19:20 | XRR_ITS ---
PROCEDURE INFORMATION: Exam: XR Left Foot Exam date and time: 03/09/2023 7:46 PM Age: 57 years old Clinical indication: Injury or trauma; Fall; Laceration; Toes; Left great; Foreign body involvement not specified TECHNIQUE: Imaging protocol: Radiologic exam of the left foot. Views: 3 or more views. COMPARISON: No relevant prior studies available. FINDINGS: Bones/joints: Moderate great toe MTP primary osteoarthritis. Calcaneal spur. Dorsal talonavicular osteophyte formation consistent with primary osteoarthritis. Soft tissues: Normal. XR/XR foot LT min 3V* [id number] IMPRESSION: No acute findings.
[2023-03-09] MEDS: doxycycline 100 mg Tablet PO (19:25)
[2023-03-09] MEDS: lidocaine 1% INJ 10 mL (per mL) INJECTION (19:43)
[2023-03-09 20:18] VITALS: BP 148/102; PULSE 83; RESP 20; O2SAT 97
== END 2023-03-09 20:20 | disposition home or self-care (01) ==
PROVIDERS: Emergency Provider Nurse Practitioner Family; PCP Nurse Practitioner Family
DX: S91.112A Laceration without foreign body of left great toe without damage to nail, initial encounter (principal); Z79.84 Long term (current) use of oral hypoglycemic drugs; Z87.891 Personal history of nicotine dependence; J44.9 Chronic obstructive pulmonary disease, unspecified; E11.9 Type 2 diabetes mellitus without complications; E78.5 Hyperlipidemia, unspecified; W22.8XXA Striking against or struck by other objects, initial encounter
CPT/HCPCS: 12002; 73630; 99283

== ENCOUNTER → 2023-03-18 13:13 | Outpatient (BNVA) | payer MEDICAID, SELFPAY | PROVIDERS: PCP Nurse Practitioner Family; Visit Provider Nurse Practitioner Family | DX: E11.65 Type 2 diabetes mellitus with hyperglycemia (principal); Z79.4 Long term (current) use of insulin | CPT/HCPCS: 83036 ==

== ENCOUNTER 2023-03-20 13:41 | Outpatient (CLI) | payer MEDICAID, SELFPAY ==
--- NOTE | 2023-03-20 14:00 | US_ITS ---
WS: [id number] TESTICULAR ULTRASOUND HISTORY: R31.9 - Hematuria, unspecified COMPARISON: None available. TECHNIQUE: Real-time and color Doppler imaging or utilized to perform a testicular ultrasound. Right testicle: 3.9 cm x 3.5 cm x 2.1 cm. Normal size and echogenicity. No mass or torsion. Normal color Doppler is present throughout. Systolic and diastolic velocities are both present. Small circumferential simple hydrocele. Right epididymis: Normal epididymis with no increased vascularity. Left testicle: 3.9 cm x 3.0 cm x 2.6 cm. Normal size and echogenicity. No mass or torsion. Increased vascularity throughout the LEFT testicle. There is normal waveform. No mass. No significant hydrocele. Left epididymis: Marked increased vascularity and enlargement of the epididymis. Area of decreased ec hogenicity within the epididymis is probably a phlegmonous portion. No abscess at this time but there is significant inflammation and enlargement. US/US scrotum [id number] IMPRESSION: 1. Advanced acute LEFT epididymo-orchitis. Phlegmonous changes in portions of the epididymis but no discrete abscess at this time. Marked enlargement of the epididymis. 2. Negative RIGHT testicle.
== END 2023-03-20 13:42 | disposition home or self-care (01) ==
PROVIDERS: PCP Nurse Practitioner Family; Visit Provider Nurse Practitioner Family
DX: R31.9 Hematuria, unspecified (principal); N52.9 Male erectile dysfunction, unspecified; N50.89 Other specified disorders of the male genital organs
CPT/HCPCS: 76870; 80053; 80061; 84443; 85025

== ENCOUNTER → 2023-05-07 11:30 | Outpatient (BNVA) | payer MEDICAID, SELFPAY | PROVIDERS: PCP Nurse Practitioner Family; Visit Provider Internal Medicine Cardiovascular Disease | DX: R06.00 Dyspnea, unspecified (principal); I10 Essential (primary) hypertension; E11.9 Type 2 diabetes mellitus without complications; E66.01 Morbid (severe) obesity due to excess calories; Z68.41 Body mass index [BMI] 40.0-44.9, adult; E78.5 Hyperlipidemia, unspecified; G47.33 Obstructive sleep apnea (adult) (pediatric); Z86.73 Personal history of transient ischemic attack (TIA), and cerebral infarction without residual deficits; Z79.84 Long term (current) use of oral hypoglycemic drugs; Z87.891 Personal history of nicotine dependence; R06.02 Shortness of breath | CPT/HCPCS: 36415; 80048; 83880; 99214 ==

== ENCOUNTER → 2023-05-22 13:55 | Outpatient (BNVA) | payer MEDICAID, SELFPAY | PROVIDERS: PCP Nurse Practitioner Family; Visit Provider Nurse Practitioner Family | DX: E11.9 Type 2 diabetes mellitus without complications (principal) | CPT/HCPCS: 80053; 80061; 83036; 84443; 85025 ==

== ENCOUNTER 2023-06-27 13:38 | Outpatient (CLI) | payer MEDICAID, SELFPAY ==
--- NOTE | 2023-06-27 | CTR_ITS ---
PROCEDURE INFORMATION: Exam: CT Abdomen And Pelvis Without And With Contrast Exam date and time: 06/27/2023 1:55 PM Age: 57 years old Clinical indication: Other: Gross hematuria; ; Prior surgery; Surgery date: 6+ months; Surgery type: Gb; Additional info: Gross hematuria; Nephrolithiasis TECHNIQUE: Imaging protocol: Computed tomography of the abdomen and pelvis without and with contrast. 3D rendering (Not supervised by radiologist): MIP and/or 3D reconstructed images were created by the technologist. Radiation optimization: All CT scans at this facility use at least one of these dose optimization techniques: automated exposure control; mA and/or kV adjustment per patient size (includes targeted exams where dose is matched to clinical indication); or iterative reconstruction. Contrast material: OMNI 350; Contrast volume: 100 ml; Contrast route: INTRAVENOUS (IV); REPORTING DATA: Count of CT and Cardiac NM exams in prior 12 months: This patient has received [address] and 0 known cardiac nuclear medicine studies in the 12 months prior to the current study. COMPARISON: CT chest abdpel w/*[id number] 10/11/2022 4:03 PM PT PET Scan 10/04/2017 9:20 AM RADIATION DOSE METRICS: Total DLP (mGy-cm): 3468.23 FINDINGS: Lungs: 8 mm right lower lobe nodule. Coronary arteries: Coronary artery calcifications. Liver: Normal. No mass. Gallbladder and bile ducts: Cholecystectomy. The bile ducts are normal. Pancreas: Normal. No ductal dilation. Spleen: Normal. No splenomegaly. Adrenal glands: Normal. No mass. Kidneys and ureters: The kidneys are unremarkable. No calculus or hydronephrosis. Normal contrast excretion. Mild perinephric stranding is most likely chronic and physiologic. Stomach and bowel: Unremarkable. No obstruction. No mucosal thickening. Appendix: The appendix is visualized and is normal. Intraperitoneal space: Unremarkable. No free air. No significant fluid collection. Vasculature: Scattered arterial calcifications. No aneurysm. Lymph nodes: Unremarkable. No enlarged lymph nodes. Urinary bladder: The urinary bladder is decompressed with mild wall thickening. No discrete lesion identified. Reproductive: Unremarkable as visualized. Bones/joints: Degenerative changes of the spine and hip joints. No acute fracture. Soft tissues: Unremarkable. CT/CT abdomen pelvis wo/w [id number] IMPRESSION: 1. No acute abnormality identified in the kidneys or renal collecting system. 2. Mild wall thickening in the urinary bladder may relate to nondistention. Cystitis is not excluded. Clinical correlation recommended. 3. 8 mm right lower lobe nodule. This appears new since 2018 and slightly larger since the 10/11/2022 CT. For both low risk and high risk patients, consider CT Chest at 3 months, PET/CT, or biopsy. (Reference: Noa) References: Noa Garcia, et al. Guidelines for Management of Incidental Pulmonary Nodules Detected on CT Images: From the Fleischner Society 2017. Radiology. 2017;284(1):228-243.
[2023-06-27] MEDS: iohexol 350 mg/mL 500 mL Btl (per mL) IV (13:43)
== END 2023-06-27 13:39 | disposition home or self-care (01) ==
LOC: RAD 13:38
PROVIDERS: PCP Nurse Practitioner Family; Visit Provider Nurse Practitioner Family
DX: R31.9 Hematuria, unspecified (principal); N20.0 Calculus of kidney; R91.8 Other nonspecific abnormal finding of lung field
CPT/HCPCS: 74178; Q9967

== ENCOUNTER 2023-07-10 10:02 | Emergency (ER) | payer MEDICAID, SELFPAY ==
[2023-07-10 10:13] VITALS: BP 104/66; PULSE 83; RESP 16; O2SAT 93; BMI 36.8
--- NOTE | 2023-07-10 10:36 | ED_ITS ---
HPI - Dizziness General: Chief Complaint: Dizziness Stated Complaint: low bp, sent dr. campos Time Seen by Provider: 07/10/23 10:08 History of Present Illness: HPI Narrative: Patient presents to the ER from Dr. Darnell's office. He was sent over here for low blood pressure of 79/50 and some dizziness. Patient arrived over here his blood pressure was 104/66 patient has no complaints at all. Patient said he took his blood pressure medicine before going to his appointment this morning so it ended up being 3 to 4 hours earlier than normal. Patient is denying any lightheaded dizziness near syncope etc. at this time. Review of Systems General: Reports: 10 or more systems reviewed and unremarkable except in HPI and below PFSH ED PFSH: Medical History Anxiety Atypical chest pain the EKG revealed a normal sinus rhythm with possible old inferior wall myocardial infarction. No significant ST-T changes. Benign essential hypertension with target blood pressure below 140/90 Bilateral carpal tunnel syndrome Bleeding Cervical spondylosis with myelopathy and radiculopathy Chronic deep vein thrombosis of lower extremity Right Chronic musculoskeletal pain Chronic obstructive pulmonary disease, unspecified Controlled diabetes mellitus with hyperglycemia, with long-term current use of insulin Controlled diabetes mellitus with hyperglycemia, without long-term current use of insulin Cubital tunnel syndrome, bilateral ROGEL (dyspnea on exertion) Dyslipidemia Environmental and seasonal allergies Erectile dysfunction History of intravenous drug use in remission detention (current) use of opiate analgesic Loose body in elbow joint Neuropathy Obesity DMITRIY (obstructive sleep apnea) Osteoarthritis of elbows, bilateral Osteoarthritis of knees, bilateral Pain management contract signed Type 2 diabetes mellitus Surgical History History of cholecystectomy History of knee surgery History of thumb surgery Family History Other CVA (cerebrovascular accident due to intracerebral hemorrhage) Heart disease Hypertension Lung disease Social History Smoking and tobacco/nicotine status: former use of tobacco/nicotine Quit status (tobacco/nicotine): has quit using Year quit tobacco: 2014 - 2PPD x 45 Years Alcohol intake: never Substance/Drug Use: never Lives independently: Yes Household members: spouse Marital status: Current occupational status: disabled Do you think of yourself as: Straight/Heterosexual Current gender identity: Male Physical Exam Const: COMMON NORMALS: no acute distress, average body habitus, patient oriented x3, no limitations, healthy appearing, alert and well nourished HENMT: COMMON NORMALS: normocephalic, atraumatic, hearing grossly normal bilaterally, external ears normal, Normal external nose present, moist oral mucous membranes and oropharynx normal HEAD & SCALP: normocephalic and atraumatic NOSE: Normal external nose present EXTERNAL EAR: Yes external ears normal Neck/C-Spine: COMMON NORMALS: no JVD Chest: COMMONS NORMALS: normal inspection of the chest and normal palpation of entire chest wall Resp: COMMON NORMALS: normal respiratory effort, No retractions, No use of accessory muscles and clear to auscultation bilaterally AUSCULTATION: clear to auscultation bilaterally Cardio: COMMON NORMALS: no JVD, regular rate, regular rhythm, S1 normal heart sound present, S2 normal heart sound present, No gallops present (Cardio), No clicks present (Cardio), No murmurs present (Cardio) and No rub (Cardio) RATE: regular rate RHYTHM: regular rhythm HEART SOUNDS: S1 normal heart sound present and S2 normal heart sound present GI: COMMON NORMALS: Normal to inspection, nondistended, normoactive bowel sounds present, Soft to palpation, non-tender, No hepatosplenomegaly present and no masses PALPATION: Yes Soft to palpation and Yes No hepatosplenomegaly present Neuro: COMMON NORMALS: patient oriented x3 SENSORIUM/ORIENTATION: Yes alert Course Vital Signs: Vital signs: Vital Signs Pulse Rate 79 07/10/23 13:16 Respiratory Rate 18 07/10/23 13:16 Blood Pressure 115/76 07/10/23 13:16 Pulse Oximetry 96 07/10/23 13:16 Oxygen Delivery Me thod Room Air 07/10/23 13:16 MDM - Dizziness Medical Decision Making Patient presented from Dr. Darnell's office with hypotension. Patient states he normally runs low and he is on multiple blood pressure medicines. Patient's pressure was approximately 104/66 upon arrival and nurse that he did get orthostatic when he stood up but did not get lightheaded or dizzy. Lab work was essentially benign, we will instruct the patient to hold his amlodipine to see if it raises his blood pressure little bit and see if symptoms improve. Patient should follow-up with his PCP in approximately 7 days or sooner as needed for further evaluation and treatment. Differential Diagnosis Unlikely adverse reaction to drug, benign paroxysmal positional vertigo, orthostatic hypotension, vertebral basilar insufficiency, cerebrovascular accident, acute vestibular neuronitis or transient cerebral ischemia Medical Records I reviewed the patient's medical records. Lab Data I reviewed the patient's lab results. 07/10/23 10:35 07/10/23 10:35 Laboratory Results WBC 8.18 10^3/uL (3.29-11.43) 07/10/23 10:35 RBC 4.45 10^6/uL (3.85-5.65) 07/10/23 10:35 Hgb 13.20 g/dL (11.27-16.99) 07/10/23 10:35 Hct 40.0 % (37-53) 07/10/23 10:35 MCV 89.9 fl (82-101) 07/10/23 10:35 MCH 29.7 pg (27-33) 07/10/23 10:35 MCHC 33.0 g/dL (30-55) 07/10/23 10:35 RDW 14.1 % (12.1-15.1) 07/10/23 10:35 Plt Count 307 10^3/cmm (157-399) 07/10/23 10:35 MPV 8.6 fL (7.4-10.4) 07/10/23 10:35 Neut % (Auto) 61.7 % 07/10/23 10:35 Lymph % (Auto) 29.2 % 07/10/23 10:35 [place] % (Auto) 5.0 % 07/10/23 10:35 Eos % (Auto) 2.2 % 07/10/23 10:35 Baso % (Auto) 1.0 % 07/10/23 10:35 Neut # (Auto) 5.05 10^3/uL (1.8-7.7) 07/10/23 10:35 Lymph # (Auto) 2.4 10^3/uL (0.8-4.8) 07/10/23 10:35 [place] # (Auto) 0.4 10^3/uL (0.2-0.9) 07/10/23 10:35 Eos # (Auto) 0.2 10^3/uL (0.0-0.8) 07/10/23 10:35 Baso # (Auto) 0.1 10^3/uL (0.0-0.1) 07/10/23 10:35 Nucleated RBC % (auto) 0 % 07/10/23 10:35 Nucleated RBCs # 0.0 /100WBC 07/10/23 10:35 Sodium 132 mmol/L (136-145) L 07/10/23 10:35 Potassium 4.3 mmol/L (3.5-5.1) 07/10/23 10:35 Chloride 96 mmol/L (98-107) L 07/10/23 10:35 Carbon Dioxide 23 mmol/L (22-29) 07/10/23 10:35 Anion Gap 17.3 (5-19) 07/10/23 10:35 BUN 18 mg/dL (6-20) 07/10/23 10:35 Creatinine 1.0 mg/dL (0.7-1.2) 07/10/23 10:35 GFR Calculation 76.5 mL/min (90-130) L 07/10/23 10:35 Glucose 274 mg/dL (65-115) H 07/10/23 10:35 Calculated Osmolality 286 mOsm/kg (285-295) 07/10/23 10:35 Calcium 9.3 mg/dL (8.5-10.5) 07/10/23 10:35 Magnesium 1.7 mg/dL (1.7-2.3) 07/10/23 10:35 Total Bilirubin 0.4 mg/dL (0.15-1.2) 07/10/23 10:35 AST 27 U/L (0-40) 07/10/23 10:35 ALT 28 U/L (0-41) 07/10/23 10:35 Alkaline Phosphatase 72 U/L (40-130) 07/10/23 10:35 Troponin T Baseline 20 ng/L (0-15) H 07/10/23 10:35 Troponin T 120 Minute 13.56 ng/L (0-15) 07/10/23 12:30 Delta Troponin T -6.44 ABS# (0-10) L 07/10/23 12:30 Total Protein 6.8 g/dL (6.6-8.7) 07/10/23 10:35 Albumin 3.7 g/dL (3.5-5.2) 07/10/23 10:35 Globulin 3.1 g/dL (1.3-4.6) 07/10/23 10:35 Urine Color Yellow (Yellow) 07/10/23 11:51 Urine Appearance Clear (CLEAR) 07/10/23 11:51 Urine pH 6 (5-7) 07/10/23 11:51 Ur Specific [place] 1.010 (1.005-1.030) 07/10/23 11:51 Urine Protein Neg (Negative) 07/10/23 11:51 Urine Glucose (UA) 1+ (Normal) H 07/10/23 11:51 Urine Ketones Negative (Negative) 07/10/23 11:51 Urine Blood Neg (Negative) 07/10/23 11:51 Urine Nitrate Negative (Negative) 07/10/23 11:51 Urine Bilirubin Neg (Negative) 07/10/23 11:51 Urine Urobilinogen Norm mg/dL (Negative) 07/10/23 11:51 Ur Leukocyte Esterase Negative (Negative) 07/10/23 11:51 All radiology interpretation(s) finalized by discharge EKG Data EKG 1: I personally reviewed and interpreted this EKG as follows: EKG interpretation date: 07/10/23 EKG interpretation time: 10:26 Prior EKG tracings: not available for review Interpretation: EKG shows ventricular rate 76 bpm, WV interval 211, QRS duration 97, QTc of 407, sinus rhythm with first-degree AV block, Discharge Plan Discharge Patient Disposition: Home Clinical Impression: Orthostatic hypotension Condition: Stable Prescriptions: Discontinued amlodipine 5 mg tablet 5 mg PO DAILY Qty: 30 2RF No Action (DME) pen needle, diabetic 33 gauge x 5/32 needle See Rx Instructions .ROUTE .MEDSUPPLY Qty: 100 5RF Rx Instructions: daily (DME) blood-glucose meter Kit See Rx Instructions .ROUTE .MEDSUPPLY Qty: 1 Rx Instructions: As directed sildenafil 50 mg tablet 50 mg PO DAILY PRN (Reason: sexual activity) Qty: 10 5RF Rx Instructions: administer 30 minutes to 4 hours before activity MediHoney (honey) 100 % paste 1 applic topical TID Qty: 15 2RF (DME) Doughnut cusion See Rx Instructions .Route .MEDSUPPLY Qty: 1 0RF Rx Instructions: As directed memantine [Namenda] 10 mg tablet 10 mg PO BID Qty: 180 1RF Rx Instructions: after starter pack Januvia 100 mg tablet 100 mg PO DAILY Qty: 30 2RF Xarelto 20 mg tablet 20 mg PO DAILY Qty: 30 2RF Hold Instructions: Resume on 01/16/22. propranolol 20 mg tablet 20 mg PO BID Qty: 60 2RF pantoprazole 40 mg tablet,delayed release (DR/EC) 40 mg PO BID Qty: 60 2RF metformin 500 mg tablet extended release 24 hr 500 mg PO BID Qty: 60 2RF irbesartan 300 mg tablet 300 mg PO DAILY Qty: 30 2RF hydroxyzine pamoate 50 mg capsule 50 mg PO .at bedtime Qty: 30 2RF Hold Instructions: Dry mouth duloxetine [Cymbalta] 60 mg capsule,delayed release(DR/EC) 60 mg PO BID Qty: 60 2RF doxepin 100 mg capsule 100 mg PO TID PRN (Reason: anxiety) Qty: 90 2RF cetirizine 10 mg tablet 10 mg PO DAILY Qty: 30 2RF ezetimibe 10 mg tablet 10 mg PO DAILY Qty: 30 2RF (DME) lancets [OneTouch Delica Lancets] 33 gauge misc See Rx Instructions .ROUTE .MEDSUPPLY Qty: 100 2RF Rx Instructions: daily (DME) blood-glucose meter Misc See Rx Instructions .Route Qty: 1 0RF Rx Instructions: As directed (DME) lancets-blood glucose strips 30 gauge combo pack See Rx Instructions .Route Qty: 200 3RF Rx Instructions: once daily galantamine 4 mg tablet See Rx Instructions .ROUTE .COMPLEX Qty: 60 0RF Dose Instruction: TAKE ONE TABLET BY MOUTH TWICE DAILY - ADMINISTER WITH MORNING AND EVENING MEALS Rx Instructions: TAKE ONE TABLET BY MOUTH TWICE DAILY - ADMINISTER WITH MORNING AND EVENING MEALS levofloxacin 500 mg tablet 500 mg PO DAILY Discharge Orders: Discharge ED (Routine); Ordered 07/10/23 Ordered By: Jeremie Ford Referrals: Ashly Vargas FNP-C [Primary Care Provider] - 1 week Patient Instructions: Hypotension (ED) Activity Restrictions/Additional Instructions: your lab work done in ER was essentially normal. It is felt that your low blood pressures due to the multiple blood pressure medicines you are on. It is suggested that you stop the amlodipine Coding Level of Care Code ED Money Manager for Lucio Barahona
[2023-07-10 10:41] LABS: Basophils # 0.1 10^3/uL (0.0-0.1); Eosinophils # 0.2 10^3/uL (0.0-0.8); Eosinophils % 2.2 %; Lymphocytes # 2.4 10^3/uL (0.8-4.8); Lymphocytes % 29.2 %; Mean Corpuscular Hemoglobin 29.7 pg (27-33); Mean Corpuscular Volume 89.9 fl (82-101); Mean Platelet Volume 8.6 fL (7.4-10.4); Monocytes # 0.4 10^3/uL (0.2-0.9); Neutrophils # 5.05 10^3/uL (1.8-7.7); Neutrophils % 61.7 %; Nucleated Red Blood Cells % 0 %; Platelet Count 307 10^3/cmm (157-399); Red Blood Count 4.45 10^6/uL (3.85-5.65); Red Cell Distribution Width 14.1 % (12.1-15.1); White Blood Count 8.18 10^3/uL (3.29-11.43)
[2023-07-10] MEDS: sodium chloride 0.9% 1,000 ML 999 ML IV (10:45)
[2023-07-10 10:47] VITALS: BP 102/65; PULSE 78; RESP 18; O2SAT 94
[2023-07-10 11:01] LABS: Alanine Aminotransferase 28 U/L (0-41); Albumin Level 3.7 g/dL (3.5-5.2); Alkaline Phosphatase 72 U/L (40-130); Anion Gap 17.3 (5-19); Aspartate Amino Transferase 27 U/L (0-40); Blood Urea Nitrogen 18 mg/dL (6-20); Calcium 9.3 mg/dL (8.5-10.5); Carbon Dioxide 23 mmol/L (22-29); Chloride 96 mmol/L (98-107); Globulin 3.1 g/dL (1.3-4.6); Glomerular Filtration Rate 76.5 mL/min (90-130); Glucose 274 mg/dL (65-115); Magnesium 1.7 mg/dL (1.7-2.3); Osmolality Calculated 286 mOsm/kg (285-295); Potassium 4.3 mmol/L (3.5-5.1); Sodium 132 mmol/L (136-145); Total Bilirubin 0.4 mg/dL (0.15-1.2); Total Protein 6.8 g/dL (6.6-8.7)
[2023-07-10 11:02] LABS: Troponin(5th) Baseline 20 ng/L (0-15)
[2023-07-10 11:26] VITALS: BP 108/68; O2SAT 97
[2023-07-10 12:03] LABS: Add Urine Microscopic? NO; Charge for UA Resulting for Rev
[2023-07-10 12:14] LABS: Bilirubin Urine Neg (Negative); Blood Urine Neg (Negative); Glucose Urine UA 1+ (Normal); Ketones Urine Negative (Negative); Leukocyte Esterase Urine Negative (Negative); Nitrate Urine Negative (Negative); Protein Urine Neg (Negative); Urine Appearance Clear (CLEAR); Urine Color Yellow (Yellow); Urobilinogen Urine Norm (Negative); pH Urine 6 (5-7)
--- NOTE | 2023-07-10 12:19 | ECG_ITS ---
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 Measurements Intervals [place] Rate: 70 P: -8 MA: 224 QRS: -11 QRSD: 90 T: 30 QT: 383 QTc: 414 Interpretive Statements SINUS RHYTHM WITH FIRST DEGREE AV BLOCK INFERIOR MYOCARDIAL INFARCTION , PROBABLY OLD [40+ ms Q WAVE AND/OR ST/T ABNORMALITY IN II/aVF] Compared to ECG 07/10/2023 10:26:00 Myocardial infarct finding now present Electronically Signed On 07-11-2023 14:19:15 CERAMIST by Boris Walker M.D. [id number]
[2023-07-10 12:37] VITALS: BP 116/70; PULSE 74; RESP 18; O2SAT 92
[2023-07-10 13:05] LABS: Troponin 5 2HR 13.56 ng/L (0-15); Troponin 5 2HR Delta -6.44 ABS# (0-10)
[2023-07-10 13:16] VITALS: BP 115/76; BP 87/68; PULSE 79; PULSE 95; RESP 18; O2SAT 96
--- NOTE | 2023-07-10 16:19 | ECG_ITS ---
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 Measurements Intervals [place] Rate: 76 P: 17 NC: 211 QRS: -3 QRSD: 97 T: 46 QT: 376 QTc: 425 Interpretive Statements SINUS RHYTHM WITH FIRST DEGREE AV BLOCK Compared to ECG 11/28/2016 12:19:15 First degree AV block now present Electronically Signed On 07-11-2023 14:17:40 ADMIRALTY LAWYER by Boris Walker M.D. [id number]
== END 2023-07-10 13:37 | disposition home or self-care (01) ==
PROVIDERS: Emergency Provider Emergency Medicine; PCP Nurse Practitioner Family
DX: I95.1 Orthostatic hypotension (principal); G47.33 Obstructive sleep apnea (adult) (pediatric); J42 Unspecified chronic bronchitis; Z87.891 Personal history of nicotine dependence; Z99.89 Dependence on other enabling machines and devices; R91.1 Solitary pulmonary nodule; J38.3 Other diseases of vocal cords; Z79.84 Long term (current) use of oral hypoglycemic drugs; I10 Essential (primary) hypertension; E78.5 Hyperlipidemia, unspecified; E11.40 Type 2 diabetes mellitus with diabetic neuropathy, unspecified
CPT/HCPCS: 36415; 80053; 81003; 83735; 84484; 85025; 93005; 96360; 99215; 99283; J7030

== ENCOUNTER → 2023-07-15 12:27 | Outpatient (BNVA) | payer MEDICAID, SELFPAY | PROVIDERS: PCP Nurse Practitioner Family; Visit Provider Specialist | DX: G30.9 Alzheimer's disease, unspecified (principal); F02.80 Dementia in other diseases classified elsewhere, unspecified severity, without behavioral disturbance, psychotic disturbance, mood disturbance, and anxiety | CPT/HCPCS: 96116; 99214 ==

== ENCOUNTER → 2023-07-22 16:11 | Outpatient (BNVA) | payer MEDICAID, SELFPAY | PROVIDERS: PCP Nurse Practitioner Family; Visit Provider Nurse Practitioner Family | DX: E11.65 Type 2 diabetes mellitus with hyperglycemia (principal); Z79.4 Long term (current) use of insulin | CPT/HCPCS: 80053; 80061; 83036; 84443; 85025 ==

== ENCOUNTER → 2023-10-29 11:36 | Outpatient (BNVA) | payer MEDICAID, SELFPAY | PROVIDERS: PCP Nurse Practitioner Family; Visit Provider Nurse Practitioner Family | DX: E11.9 Type 2 diabetes mellitus without complications (principal) | CPT/HCPCS: 80053; 80061; 83036; 84443; 85025 ==

== ENCOUNTER → 2024-03-02 16:04 | Outpatient (BNVA) | payer MEDICAID, SELFPAY | PROVIDERS: PCP Nurse Practitioner Family; Visit Provider Nurse Practitioner Family | DX: E11.69 Type 2 diabetes mellitus with other specified complication (principal) | CPT/HCPCS: 80053; 80061; 83036; 84443; 85025 ==

== ENCOUNTER → 2024-04-06 13:13 | Outpatient (BNVA) | payer MEDICAID, SELFPAY | PROVIDERS: PCP Nurse Practitioner Family; Referring Provider Nurse Practitioner Family; Visit Provider Nurse Practitioner Family | DX: D23.71 Other benign neoplasm of skin of right lower limb, including hip (principal); D18.01 Hemangioma of skin and subcutaneous tissue; L81.4 Other melanin hyperpigmentation | CPT/HCPCS: 99203 ==

== ENCOUNTER → 2024-04-14 10:06 | Outpatient (BNVA) | payer MEDICAID, SELFPAY | PROVIDERS: PCP Nurse Practitioner Family; Visit Provider Nurse Practitioner Family | DX: R07.9 Chest pain, unspecified (principal) | CPT/HCPCS: 93005 ==

== ENCOUNTER → 2024-04-22 13:55 | Outpatient (BNVA) | payer MEDICAID, SELFPAY | PROVIDERS: PCP Nurse Practitioner Family; Visit Provider Internal Medicine Critical Care Medicine | DX: J98.4 Other disorders of lung (principal); R06.00 Dyspnea, unspecified; F17.211 Nicotine dependence, cigarettes, in remission; F17.210 Nicotine dependence, cigarettes, uncomplicated; G47.33 Obstructive sleep apnea (adult) (pediatric); J41.0 Simple chronic bronchitis; R91.1 Solitary pulmonary nodule; Z12.2 Encounter for screening for malignant neoplasm of respiratory organs; E66.09 Other obesity due to excess calories; Z68.37 Body mass index [BMI] 37.0-37.9, adult; Z71.89 Other specified counseling; Z71.82 Exercise counseling | CPT/HCPCS: 99214 ==

== ENCOUNTER → 2024-05-05 14:45 | Outpatient (BNVA) | payer MEDICAID, SELFPAY | PROVIDERS: PCP Nurse Practitioner Family; Visit Provider Specialist | DX: G30.9 Alzheimer's disease, unspecified (principal); F02.80 Dementia in other diseases classified elsewhere, unspecified severity, without behavioral disturbance, psychotic disturbance, mood disturbance, and anxiety | CPT/HCPCS: 96116; 99213 ==

== ENCOUNTER 2024-05-17 14:14 | Outpatient (CLI) | payer MEDICAID, SELFPAY ==
[2024-05-17 15:24] LABS: Blood Urea Nitrogen 9 mg/dL (8-23); Glomerular Filtration Rate 68.3 mL/min (90-130)
== END 2024-05-17 14:15 | disposition home or self-care (01) ==
LOC: RAD 14:14
PROVIDERS: Radiology Diagnostic Radiology; PCP Nurse Practitioner Family; Visit Provider Nurse Practitioner Family
DX: J42 Unspecified chronic bronchitis (principal); R91.1 Solitary pulmonary nodule; R63.4 Abnormal weight loss
CPT/HCPCS: 82565; 84520

== ENCOUNTER 2024-05-17 14:14 | Outpatient (CLI) | payer MEDICAID, SELFPAY ==
--- NOTE | 2024-05-17 14:00 | CT_ITS ---
WS: [id number] CT CHEST, ABDOMEN AND PELVIS WITH CONTRAST HISTORY: R31.9 - Hematuria, unspecified , J42 - Unspecified chronic bladder infection, fever TECHNIQUE: Contiguous 5 mm axial imaging performed through the chest, abdomen and pelvis IV contrast, oral contrast has been provided. Coronal and sagittal reformats chest. Coronal and sagittal reformat s through the abdomen and pelvis. All CT scans at [facility] use at least one of these dose o ptimization techniques: automated exposure control; mA and/or kV adjustment per patient size (include s targeted exams where dose is matched to clinical indication); or iterative reconstruction. CONTRAST: Omnipaque 350; 100 mL IV. DLP: 1586.05 mGy.cm COMPARISON: 06/27/2023, 10/11/[address]: Chronic emphysema with mild interstitial thickening. Tiny stable peripheral micronodules LE FT upper lobe. 8 mm nodule at the RIGHT lung base is unchanged. No pneumonia. Heart size is normal. M ild atherosclerosis aorta. No mediastinal or hilar adenopathy. Subcarinal lymph node is similar to . No chest wall abnormality. Abdomen CT: Normal liver and spleen. Prior cholecystectomy. No bile duct dilatation. Normal pancreas and adrenal glands. Very minimal perinephric stranding with no obstruction. No mass identified. Mild atherosclerosis aorta. Mesenteric arteries are negative. No adenopathy and no ascites. Small bowel intussusception involving the jejunum. Intussusception is n ot resulting in and obstruction. Increased soft tissue distention of the lumen and possible mass. No adjacent adenopathy. Normal appendix. Featureless, haustral absent proximal colon. Smooth tubular yarelis earance of the proximal colon becomes more normal through the transverse colon. New finding since 06/27/2023. There is mild wall thickening of the colon measuring up to 1.3 cm. There is a change in calib er of the colon and the wall thickening near the hepatic flexure and proximal colon. Pelvic CT: Urinary bladder is not distended. No free fluid or adenopathy in the pelvis. Advanced degenerative changes at the hips, RIGHT greater than LEFT. Severe RIGHT hip arthropathy. CT/CT chest abdpel w/*[id number] IMPRESSION: 1. No pulmonary mass or pneumonia. 2. Chronic emphysema. 3. Jejunal intussusception with distention of the lumen and possible mass. Thi s may be a transient intussusception but the possibility a lead point resulting in intussusception should be considered. Consider evaluation by general surger y. Short-term CT follow-up of the abdomen and pelvis may be of benefit to see i f intussusception spontaneous resolves. 4. Prior cholecystectomy. 5. No ascites. 6. No ischemia. 7. Severe bilateral hip joint arthropathy, RIGHT greater than LEFT. 8. Long segment abnormality involving the ascending colon. Loss of the normal haustral pattern with wall thickening. New since 06/27/2023. Colon returns to a more normal caliber just distal to the hepatic flexure. This needs to be furthe r evaluated by colonoscopy. Due to the acute onset since 06/27/2023 this is not likely related to ulcerative colitis. Prior ischemic colitis and cathartic abus e should be considered. Less likely neoplasm due to the long segment involvemen t. There is asymmetric wall thickening towards the cecum which needs to be furt her evaluated.
[2024-05-17] MEDS: iohexol 350 mg/mL 500 mL Btl (per mL) PO (14:40)
[2024-05-17] MEDS: iohexol 350 mg/mL 500 mL Btl (per mL) IV (15:45)
== END 2024-05-17 14:15 | disposition home or self-care (01) ==
LOC: RAD 14:14
PROVIDERS: PCP Nurse Practitioner Family; Visit Provider Nurse Practitioner Family
DX: R31.9 Hematuria, unspecified (principal); R10.9 Unspecified abdominal pain; R63.4 Abnormal weight loss; K22.70 Barrett's esophagus without dysplasia; K29.70 Gastritis, unspecified, without bleeding; J43.9 Emphysema, unspecified; R91.8 Other nonspecific abnormal finding of lung field; Z90.49 Acquired absence of other specified parts of digestive tract; K56.1 Intussusception; M16.0 Bilateral primary osteoarthritis of hip; R93.3 Abnormal findings on diagnostic imaging of other parts of digestive tract
CPT/HCPCS: 71260; 74177

== ENCOUNTER 2024-05-27 15:05 | Outpatient (CLI) | payer MEDICAID, SELFPAY ==
--- NOTE | 2024-05-27 15:30 | CT_ITS ---
WS: [id number] CT ABDOMEN AND PELVIS WITH CONTRAST HISTORY: M54.2 - Cervicalgia, prior intussusception. TECHNIQUE: Imaging performed of the abdomen and pelvis with IV contrast. Single phase imaging of the abdomen. Coronal and sagittal reformats are submitted. All CT scans at [facility] use at [address] one of these dose optimization techniques: automated exposure control; mA and/or kV adjustment per patient size (includes targeted exams where dose is matched to clinical indication); or iterative re construction. IV CONTRAST: Omnipaque 350; 100 mL IV. Oral contrast: Yes. DLP: 1113.21 mGy.cm COMPARISON: 05/17/2024 Lower thorax: Chronic emphysema with mild interstitial thickening at the lung bases. No change in the 8 mm nodule at the RIGHT lung base. Heart is normal size. No hiatal hernia. Liver/biliary system: Normal size with no intrahepatic dilatation. Gallbladder: Prior cholecystectomy. Pancreas: Normal size pancreas and pancreatic duct. No adjacent inflammation. Spleen: Normal size spleen. No mass or infarct. Adrenal glands: Normal. Right kidney: Normal. Left kidney: Normal. Aorta: Mild atherosclerosis with no aneurysm. Lymphadenopathy: None. Free fluid: None. GI tract: Normal appearance of the stomach. The recently described jejunal intussusception is no long er present. No mass identified within the loops of small bowel. No lead point suspected. There is no obstructive pattern. The increased soft tissue within the jejunum seen on the prior study was likely the intussusceptum. There has also been an improvement in the RIGHT colon. The tubular appearance of the proximal colon a s become more normal although there is still 2 areas of luminal narrowing which may be further evalua diana by colonoscopy. This could represent early apple core lesions. 1 of these lesions is in the ascen ding colon and the other towards the hepatic flexure. There is no obstructive pattern at this time. T he appendix is normal. No colitis. Abdominal wall: Unremarkable abdominal wall. No hernia. Pelvis: No free fluid or adenopathy within the pelvis. Bones: Degenerative changes at the hips. No fracture. CT/CT abdomen pelvis w con* [id number] IMPRESSION: 1. Complete resolution of the jejunal intussusception noted on 05/17/2024. No p ersistent mass is identified or lead point noted by CT. There is no obstruction . 2. Interval improvement in the ascending colon. There is less wall thickening and some of the haustral pattern is returning. There are still 2 short segment areas of luminal narrowing which need to be further evaluated by colonoscopy. T hese lesions are within the ascending colon and hepatic flexure.
[2024-05-27] MEDS: iohexol 350 mg/mL 500 mL Btl (per mL) IV (16:00)
== END 2024-05-27 15:06 | disposition home or self-care (01) ==
LOC: RAD 15:06
PROVIDERS: PCP Nurse Practitioner Family; Visit Provider Nurse Practitioner Family
DX: J43.9 Emphysema, unspecified (principal); R91.1 Solitary pulmonary nodule; M54.2 Cervicalgia; K63.9 Disease of intestine, unspecified; K56.1 Intussusception; K62.5 Hemorrhage of anus and rectum; Z90.49 Acquired absence of other specified parts of digestive tract
CPT/HCPCS: 74177

== ENCOUNTER → 2024-05-31 09:40 | Outpatient (BNVA) | payer MEDICAID, SELFPAY | PROVIDERS: PCP Nurse Practitioner Family; Visit Provider Surgery | DX: K21.9 Gastro-esophageal reflux disease without esophagitis (principal); K22.70 Barrett's esophagus without dysplasia; R13.10 Dysphagia, unspecified; K92.2 Gastrointestinal hemorrhage, unspecified; Z90.49 Acquired absence of other specified parts of digestive tract | CPT/HCPCS: 99214 ==

== ENCOUNTER 2024-06-07 11:08 | Day surgery (SDC) | payer MEDICAID, SELFPAY ==
--- OUTSIDE RECORDS SUMMARY | 2024-05-31 16:18 | XMS_ITS ---
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 Name Role Phone Ashly Lord Primary Care Provider Unavailab luna MARLENY MILIAN [facility] [phone] Allergies No Known Allergies REASON FOR VISIT PCR+ Medications Medication SIG (Take, Route, Frequency, Duration) Notes Start Date End Date Status Ciprofloxacin HCl 500 MG 1 tablet Orally every 12 hrs for 10 days 04/05/2024 04/15/2024 Active Encounters Encounter Location Date Provider Diagnosis [facility] [place] [address] [place] [address] 04/05/2024 MARLENY MILIAN Plan Of Treatment Medication Medication Name Sig Start Date Stop Date Notes Ciprofloxacin HCl 500 MG 1 tablet Orally every 12 hrs for 10 days 04/05/2024 04/15/2024 Progress Notes * Yair URRUTIA IIDOB:1964 (58 yo M)Acc No.[id number]:04/05/2024 Patient:?Yair URRUTIA II :1965???Age:58 Y???Sex:Male Address:[address] [place] [id number] * Refills? Start Ciprofloxacin HCl Tablet, 500 MG, Orally, 20 Tablet, 1 tablet, every 12 hrs, 10 days, Refills=0 Subjective: * Chief Complaints: * ???PCR+ * Medical History:? * Surgical History:? * Hospitalization/Major Diagno stic Procedure:? * Medications:? * Allergies:?N.K.D.A.no[Allerg ies Verified] Objective: * Vitals:? * Physical Examination:? Assessment: Plan: * Treatment: * Procedure Codes:? * true * Date:? Generated for Christina tejeda/Dee/Shari on:?05/31/2024 04:18 PM CDT
--- OUTSIDE RECORDS SUMMARY | 2024-05-31 16:19 | XMS_ITS | Continuity of Care Document ---
Author Name Unknown Organization [facility] Address [address] [place] [address] Phone Care Team Providers Care General Surgery Physician Assistant Name Role Phone Sung Delgadillo MD Unavailable Unavailable Procedures Procedure Date [facility] Advance Directives Directive Yes / No Effective Date File Name No Information Encounters Encounter Description Practice Location Reason(s) For Visit Diagnoses Date Provider Providers Copied on Encounter Initial hospital care, [facility], [address] [place], [place], [id number], [place] tel:[phone] [facility] No Information Elie Sung. [address], [place], [id number] , [place]. tel:[phone] Referring Provider: Dieter Navarro MD B, [address] [place], [address] . tel:[phone] Family History Family Member Type Diagnosis Age At Onset No Information Payers Payer name Insurance type Covered democrat ID Mell gray(s) [employer] CI [id number] Social History Type Description Quantity Date Captured Comments Sex Male Smoking Status No Information Chief Complaint And Reason For Visit No Information Reason For Referral Reason For Referral No Information History Of Present Illness Encounter Date Complaint History Of Prese nt Illness No Information Functional Status Date Functional Assessmen t No Information Instructions Date Instruction Additional Infor mation No Information Assessments Type Assessment Date No Information Patient Care Teams Name Effective Dates (start - stop) Status Members No Information
--- OUTSIDE RECORDS SUMMARY | 2024-05-31 16:19 | XMS_ITS ---
Author Name Unknown Organization [facility] Address [address] [place] [address] Care Team Providers Care 3D Artist Name Role Phone Ashly Lord Primary Care Provider Unavailab MARLENY Bassett Unavailable [phone] Ernesto Ramos Unavailable [phone] Allergies No Known Allergies Results Component Value Reference Range Notes Urinalysis, Routine Reviewed date:04/02/2024 10:39:05 AM Interpretation: Performing Lab: Notes/Report: Urine-Color janis Appearance slightly cloudy Glucose - Bilirubin 1+ Ketones - Specific [place] 1.030 Occult Blood - pH 6.0 Urine Protein trace Urobilinogen,Semi-Qn - Nitrite, Urine - WBC Esterase - REASON FOR VISIT Bladder Pain Medications Medication SIG (Take, Route, Frequency, Duration) Notes Start Date End Date Status Ciprofloxacin-dexAMETHasone 0.3-0.1 % 4 drops into affected ear Otic Twice a day for 7 days 04/02/2024 Active hydrOXYzine Pamoate 50 MG 1 capsule at b edtime as needed Orally Once a day 05/12/2023 Active DULoxetine HCl 60 MG 1 capsule Orally tw ice a day 05/12/2023 Active Doxepin HCl 100 MG 1 capsule as needed Orally three times a day 05/12/2023 Active Xarelto 20 MG 1 tablet with food O rally Once a day 05/12/2023 Active Pantoprazole Sodium 40 MG 1 tablet Orall y twice a day 05/12/2023 Active Januvia 100 MG 1 tablet Orally Once a day 05/12/2023 Active metFORMIN HCl Active Cetirizine HCl 10 MG 1 tablet Orally Onc e a day 05/12/2023 Active Social History Tobacco Use: Social History Observation Description Date Details (start date - stop date) Former Smoker NA - NA Tobacco Use/Smoking Question Answer Notes Tobacco use: former smoker How long has it been since you last smoked? > 10 years Vital Signs Blood pressure systolic 152 mm Hg 04/02/20 24 Blood pressure diastolic 84 mm Hg 024 Heart Rate 111 /min 04/02/2024 Height 72 in 04/02/2024 Height-cm 182.88 cm 04/02/2024 Procedures Procedure Date Ordered Date Performed Result Body Sit e Bladder Scan 04/02/2024 04/02/2024 N/A Encounters Encounter Location Date Provider Diagnosis [facility], [facility] [address] [place] [address] 04/02/2024 Ernesto Ramos Hematuria R31.9 ; Be nign prostatic hyperplasia with lower urinary tract symptoms N40.1 ; Straining to void R39.16 ; Suprapubic tenderness R10.819 ; Chronic anticoagulation Z79.01 ; History of smoking Z87.891 ; History of substance abuse F19.11 and Acute diffuse otitis externa of left ear H60.312 Assessments Encounter Date Diagnosis (ICD Code) Assessment Notes Treat ment Notes Treatment Clinical Notes 04/02/2024 Hematuria (ICD-10 - R31.9) 04/02/2024 Benign prostatic hyperplasia with lower urinary tract symptoms (ICD-10 - N40.1) 04/02/2024 Straining to void (ICD-10 - R39.16) 04/02/2024 Suprapubic tendernes s (ICD-10 - R10.819) 04/02/2024 Chronic anticoagulation (ICD-10 - Z79.01) 04/02/2024 History of smoking (ICD-10 - Z87.891) 04/02/2024 History of substance abuse (ICD-10 - F19.11) 04/02/2024 Acute diffuse otitis externa of left ear (ICD-10 - H60.312) Plan Of Treatment Medication Medication Name Sig Start Date Stop Date Notes Ciprofloxacin-dexAMETHasone 0.3-0.1 % 4 drops into affected ear Otic Twice a day for 7 days 04/02/2024 Next Appt Details Follow Up: prn, Reason: Progress Notes * Yair URRUTIA IIDOB:1964 (58 yo M)Acc No.[id number]:04/02/2024 Patient:?Yair URRUTIA II Provider:?Ernesto Ramos APRN :1965???Age:58 Y???Sex:Male Chris e:04/02/2024 Address:[address] [place], [place] [id number] Pcp:KIRILL EllisC Subjective: * Chief Complaints: * ???1. Bladder Pain. * HPI: ???Migrated HPI:? 58 year old male with history of hematuria and bladder issues.?Patient states he had a fall from a chair to the floor in 01/2022 with injury to his tailbone and perineal area. Since this injury, he has had intermittent gross hematuria. In previous visits it ws documented that he?denies dysuria, but states he gets SP tenderness when his bladder is getting full and has to push and strain to voids, but has better stream when sitting. IPSS 21 QOL 3. 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 He has history of smoking cigarettes x 40 years, but quit about 10 years ago. He now smokes marijuana since it is legal in [place]. He also reports a history of drinking alcohol until he quit at age 28, and substance abuse. He denies personal or family history of kidney stones, kidney, bladder or prostate cancer.? He has diabetes and reports most recent A1C of 7.2%. He is on Xarelto due to a 'mild stroke' in the past.? ?In previous visits, it was documented that patient discovering a third testicle , so his PCP sent him for an ultrasound and put him on 3 weeks of antibiotics that solved the issue. Patient was last in office for?cystoscopy that revealed multiple areas of erythema and bilobar prostatic obstruction. It was discussed on moving forward to the OR for biopsy. Path was negative. However, he never returned to discuss this, and has failed to keep rescheduled followup. He is here now as a problem visit with complaints of bladder pains that recently started hurting. He said his urine appears darker and is concerning for hematuria. Here today for further evaluation involving this. * ROS:?General / Constitutional:?Patient denies?chills, fever, weight loss, good appetite.?ENT:?Patient denies?nasal congestionrhinorrhea or epistaxis.?Respiratory:?Patient denies?chronic cough, hemoptysis.?Cardiovascular:?Patient denies?substernal chest pain or palpitations, dyspnea with exertion.?Gastrointestinal:?Patient denies?constipation, rectal bleeding, weight loss, abdominal pain.?Hematology:?Patient denies?easy bruising, bleeding problems.?Genitourinary:?Patient denies?Documented in HPI.?Musculoskeletal:?Patient denies?arthritis / arthralgia, joint stiffness or swelling or redness.?Neurologic:?Patient denies?seizures, headache, difficulty speaking.?Psychiatric:?Patient denies?depressed mood, suicidal thoughts.? * Medical History:?Heart disea se, Arthritis, Hypertension, Asthma, Migraine headaches, CVA (mild), Diabetes. * Surgical History:?Broken arm L , cholecystectomy . * Family History:?Father: dece ased, parkinson's, dementia.?Mother: , age 83 old age.? * Social History:?Tobacco Use:?Tobacco Use/Smoking?Tobacco use:?former smoker,?How long has it been since you last smoked??> 10 years.? * Medications:?Taking metFORMI N HCl , Taking Xarelto 20 MG Tablet 1 tablet with food Orally Once a day , Taking Pantoprazole Sodium 40 MG Tablet Delayed Release 1 tablet Orally twice a day , Taking Januvia 100 MG Tablet 1 tablet Orally Once a day , Taking hydrOXYzine Pamoate 50 MG Capsule 1 capsule at bedtime as needed Orally Once a day , Taking DULoxetine HCl 60 MG Capsule Delayed Release Particles 1 capsule Orally twice a day , Taking Doxepin HCl 100 MG Capsule 1 capsule as needed Orally three times a day , Taking Cetirizine HCl 10 MG Tablet 1 tablet Orally Once a day , Discontinued Propranolol HCl 20 MG Tablet 1 tablet Orally twice a day , Discontinued Levalbuterol Tartrate 45 MCG/ACT Aerosol 2 puffs as needed Inhalation every 6 hrs , Discontinued Irbesartan 300 MG Tablet 1 tablet Orally Once a day , Discontinued amLODIPine Besylate 5 MG Tablet 1 tablet Orally Once a day , Medication List reviewed and reconciled with the patient * Allergies:?N.K.D.A. Objective: * Vitals:?BP:152/84mm Hg, HR:1 11/min, Ht: 72 in, Ht-cm: 182.88 cm. * Examination: ???General Examination: ?General appearance:?alert, pleasant, well-nourished and in no acute distress.?Eyes:?conjunctiva clear, normal.?Ears:?left ear, not examined, external canal inflamed.?Neck / thyroid:?Neck is supple, no palpable cervical lymphadenopathy.?Abdomen:?soft, nontender.? No palpable organomegaly. No peritoneal signs. No shifting dullness. No CVA tenderness.?Musculoskeletal:?No clubbing, cyanosis, or edema. Full ROM.?Extremities:?Full ROM.?Neurologic:?No focal deficits, muscle strength 5/5 in all extremities..?Psych:?cooperative with exam.?Genitourinary?Deferred exam.? Assessment: * Assessment: 1.?Hematuria - R31.9 (Primar y)???2.?Benign prostatic hyperplasia with lower urinary tract symptoms - N40.1???3.?Straining to void - R39.16???4.?Suprapubic tenderness - R10.819???5.?Chronic anticoagulation - Z79.01 ??6.?History of smoking - Z87.891???7.?History of substance abuse - F19.11???8.?Acute diffuse otitis externa of left ear - H60.312??? 57 yo male with gross hematu elizabeth for 1.5 years. I discussed previous in office cysto revealed multiple areas of erythema and bilobar prostatic obstruction. I reviewed pathology with patient that was angn. UA is clear, however, given symptoms I recommended sending UA for PCR. His symptoms do not appear consistent with prostatitis. It does appear that he may be dehydrated on exam and based on UA.? However, his biggest concern is his L ear that is tender to touch with abnormal drainage. Based on symptoms and exam, I recommonded to start on ciprodex. Prescription sent to pharmacy. UA will be sent for pathnostics and treated accordingly. I recommended close followup, however, he is deferring on scheduling for now, and will call back when he has an issue. ?RTC or call sooner with any concerns. The patient voices understanding and agrees with the plan. All of his questions were answered to his satisfaction. Plan: * Treatment: ? Value Reference Range ?Urine-Color janis * ?Appearance slightly cloudy * ?Glucose - * ?Bilirubin 1+ * ?Ketones - * ?Specific [place] 1.030 * ?Occult Blood - * ?pH 6.0 * ?Urine Protein trace * ?Urobilinogen,Semi-Qn - * ?Nitrite, Urine - * ?WBC Esterase - ?Procedure: Bladder Scan (Performed Date - 04/02/2024)* Katiuska Holguin 04/02/2024 10:42: 46 AM CDT > 47ml PVR 2.?Acute diffuse otitis externa of left ear? Start Ciprofloxacin-dexAMETHasone Suspension, 0.3-0.1 %, 4 drops into affected ear, Otic, Twice a day, 7 days, 1, Refills 0.?? * Procedure Codes:?38071 URINA LYSIS, AUTO, W/O SCOPE, 90251 US URINE CAPACITY MEASURE * Follow Up:?prn * Billing Information: * Visit Code:? 59233 Office Visit, Est Pt., Level 4. * Procedure Codes:? 41852 URINALYSIS, AUTO, W/O SCOPE. 13437 US URINE CAPACITY MEASURE. * Sign off status: Completed true * Provider:Jo Ann Ramos APRN Date:?04/2024 Generated for Printi ng/Faxing/eTransmitting on:?05/31/2024 04:18 PM CDT History and Physical Notes * Examination Category Sub-Category Detail Notes General Examination General appearance: alert, p leasant, well-nourished and in no acute distress Eyes: conjunctiva clear, n ormal Ears: left ear, not examin ed, external canal inflamed Neck / thyroid: Neck is supple, no p alpable cervical lymphadenopathy Abdomen: soft, nontender. No palpable organomegaly. No peritoneal signs. No shifting dullness. No CVA tenderness Neurologic: No focal deficits, m uscle strength 5/5 in all extremities. Extremities: Full ROM Musculoskeletal: No clubbing, cyanosi s, or edema. Full ROM Psych: cooperative with exa m Genitourinary Deferred exam
--- OUTSIDE RECORDS SUMMARY | 2024-05-31 16:19 | XMS_ITS | Patient Health Record ---
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 Name Role Phone Ashly Lord Primary Care Provider Unavailab MARLENY Bassett Unavailable [phone] LuisErnesto jurado Unavailable [phone] Allergies No Known Allergies Results Component Value Reference Range Notes Urinalysis, Routine Reviewed date:04/02/2024 10:39:05 AM Interpretation: Performing Lab: Notes/Report: Urine-Color janis Appearance slightly cloudy Glucose - Bilirubin 1+ Ketones - Specific [place] 1.030 Occult Blood - pH 6.0 Urine Protein trace Urobilinogen,Semi-Qn - Nitrite, Urine - WBC Esterase - Urinalysis, Routine Reviewed date:07/06/2023 06:02:59 PM Interpretation: Performing Lab: Notes/Report: Urine-Color janis Appearance cloudy Glucose - Bilirubin 1+ Ketones trace Specific [place] 1.020 Occult Blood 2+ pH 6.0 Urine Protein 2+ Urobilinogen,Semi-Qn - Nitrite, Urine - WBC Esterase 3+ Reason For Referral No Information Medications Medication SIG (Take, Route, Frequency, Duration) Notes Start Date End Date Status Xarelto 20 MG 1 tablet with food O rally Once a day 05/12/2023 Active metFORMIN HCl Active Ciprofloxacin-dexAMETHasone 0.3-0.1 % 4 drops into affected ear Otic Twice a day for 7 days 04/02/2024 Active hydrOXYzine Pamoate 50 MG 1 capsule at b edtime as needed Orally Once a day 05/12/2023 Active DULoxetine HCl 60 MG 1 capsule Orally tw ice a day 05/12/2023 Active Doxepin HCl 100 MG 1 capsule as needed Orally three times a day 05/12/2023 Active Cetirizine HCl 10 MG 1 tablet Orally Onc e a day 05/12/2023 Active Pantoprazole Sodium 40 MG 1 tablet Orall y twice a day 05/12/2023 Active Januvia 100 MG 1 tablet Orally Once a day 05/12/2023 Active Social History Tobacco Use: Social History Observation Description Date Details (start date - stop date) Former Smoker NA - NA Tobacco Use/Smoking Question Answer Notes Tobacco use: former smoker How long has it been since you last smoked? > 10 years Problems Problem Type SNOMED Code ICD Code Onset Dates Problem Status W/U Status Risk Notes Problem Must strain to pass urine (417574672) Straining to void (R39.16) Active confirmed Problem Lower urinary tract symptoms due to benign prostatic hypertrophy (22700548156141) Benign prostatic hyperplasia with lower urinary tract symptoms (N40.1) Active confirmed Problem Use of anticoagulation (793744874) Chronic anticoagulation (Z79.01) Active confirmed Problem 045207498 ED (erectile dysfunction) (N52.9) Active confirmed Problem History of substance abuse (573872730) History of substance abuse (F19.11) Active confirmed Problem Hematuria (41892900) Hematuria (R31.9) Active confirmed Problem Lesion of bladder (731834602) Lesion of bladder (N32.9) Active confirmed Vital Signs Heart Rate 111 /min 04/02/2024 Temperature 97.5 degrees Fahrenheit 06/30/2023 Blood pressure diastolic 84 mm Hg 04/02/2024 Oximetry 96 % 06/30/2023 Height-cm 182.88 cm 04/02/2024 Weight-kg 126.55 kg 06/30/2023 Height 72 in 04/02/2024 Blood pressure systolic 152 mm Hg 04/02/2024 Weight 279 lbs 06/30/2023 BMI 37.84 kg/m2 06/30/2023 Procedures Procedure Date Ordered Date Performed Result Body Sit e Bladder Scan 04/02/2024 04/02/2024 N/A Encounters Encounter Location Date Provider Diagnosis DO NOT USE THIS FACILITY [facility], [facility] [address] [place], [place] [id number] 07/22/2023 MARLENY MILIAN [facility] [address] [place] [address] 06/30/2023 MARLENY MILIAN Hematuria R31.9 ; Be nign prostatic hyperplasia with lower urinary tract symptoms N40.1 ; Straining to void R39.16 ; Suprapubic tenderness R10.819 ; Chronic anticoagulation Z79.01 ; History of smoking Z87.891 and History of substance abuse F19.11 [facility], [facility] [address] [facility] [address] [place] [address] 04/02/2024 Ernesto Ramos Hematuria R31.9 ; Be nign prostatic hyperplasia with lower urinary tract symptoms N40.1 ; Straining to void R39.16 ; Suprapubic tenderness R10.819 ; Chronic anticoagulation Z79.01 ; History of smoking Z87.891 ; History of substance abuse F19.11 and Acute diffuse otitis externa of left ear H60.312 DO NOT USE THIS FACILITY [facility], [facility] [address], [place] [id number] 07/03/2023 MARLENY MILIAN DO NOT USE THIS FACILITY [facility], [facility] [address], [place] [id number] 07/03/2023 [facility] [address] [place] [address] 07/09/2023 MARLENY MILIAN DO NOT USE THIS FACILITY [facility], [facility] [address], [place] [id number] 07/21/2023 [facility], [facility] [address] [place] [address] 12/16/2023 [facility], [facility] [address] [place] [address] 04/05/2024 MARLENY WOODSER Assessments Encounter Date Diagnosis (ICD Code) Assessment Notes Treat ment Notes Treatment Clinical Notes 06/30/2023 Benign prostatic hyperplasia with lower urinary tract symptoms (ICD-10 - N40.1) 06/30/2023 Hematuria (ICD-10 - R31.9) 04/02/2024 Benign prostatic hyperplasia with lower urinary tract symptoms (ICD-10 - N40.1) 04/02/2024 Hematuria (ICD-10 - R31.9) 06/30/2023 Straining to void (ICD-10 - R39.16) 04/02/2024 Straining to void (ICD-10 - R39.16) 06/30/2023 Suprapubic tendernes s (ICD-10 - R10.819) 04/02/2024 Suprapubic tendernes s (ICD-10 - R10.819) 06/30/2023 Chronic anticoagulation (ICD-10 - Z79.01) 04/02/2024 Chronic anticoagulation (ICD-10 - Z79.01) 04/02/2024 History of smoking (ICD-10 - Z87.891) 06/30/2023 History of smoking (ICD-10 - Z87.891) 06/30/2023 History of substance abuse (ICD-10 - F19.11) 04/02/2024 History of substance abuse (ICD-10 - F19.11) 04/02/2024 Acute diffuse otitis externa of left ear (ICD-10 - H60.312) Plan Of Treatment No Information Insurance Providers Payer Name Payer Address Payer Phone Subscriber Number Group Number Insured Name Patient Relationship to Insured Coverage Start Date Coverage End Date [place] Medicaid [address] [place], [place] [id number] Yair Urrutia Self - patient is the insured Medical (General) History Medical History History ICD Code heart disease arthritis hypertension asthma migraine headaches CVA (mild) diabetes Surgical History Surgery Date(Month/Year) Broken arm L cholecystectomy
--- OUTSIDE RECORDS SUMMARY | 2024-05-31 16:19 | XMS_ITS ---
Author Name Unknown Organization [facility] Address [address] [facility] [place] [address] Care Team Providers Care Importer Exporter Name Role Phone Ashly Lord Primary Care Provider Unavailab jeremy WOODSER MARLENY Unavailable [phone] REASON FOR VISIT Pt Call- Biopsy Results Encounters Encounter Location Date Provider Diagnosis [facility], [facility] [address] [facility] [place] [address] 12/16/2023 MARLENY MILIAN Plan Of Treatment No Information Progress Notes * Yair URRUTIADOB:1965 (58 yo M)Acc No.[id number]:12/16/2023 Patient:?Yair URRUTIA :1965???Age:58 Y???Sex:Male Address:[facility] [address], [place], [facility] [address] * true * Date:? Generated for Shadiai ileana/Dee/eTransmitting on:?05/31/2024 04:19 PM CDT
[2024-06-07 11:29] VITALS: BP 181/97; PULSE 78; RESP 18; TEMP 36.2; O2SAT 96; BMI 36.3
[2024-06-07] MEDS: sodium chloride 0.9% 1,000 ML 30 ML IV (11:33)
[2024-06-07 11:39] LABS: Glucose Point of Care 259 mg/dL (70-110)
--- NOTE | 2024-06-07 13:07 | W.PM.OPSUD ---
Surgery/Procedure H&P Update DATE OF PROCEDURE: June 07, 2024 DATE H&P PERFORMED: 05/31/24 H&P UPDATE INFORMATION: I have reviewed H&P completed within last 30 days, I have examined patient prior to procedure and No changes to prior documentation PLANNED PROCEDURE: Operation Date: 06/07/24 12:30 Proposed Procedures p EGD Dilation W/ Balloon 52719, 41866, G0105, K92.2 , R13.10(Not Applicable) - DO jason Reaves Colonoscopy(Not Applicable) - Fabricio Rush DO
[2024-06-07 14:05] VITALS: BP 149/86; PULSE 83; RESP 20; TEMP 36.3; O2SAT 92
[2024-06-07 14:10] VITALS: BP 140/85; PULSE 87; RESP 20; O2SAT 92
--- NOTE | 2024-06-07 14:10 | ANES.PREANE2 ---
Pre-Anesthetic Assessment Height/Weight: Height 1.83 m Weight 121.563 kg Temp Pulse Resp BP Pulse Ox O2 Del Method 97.2 F L 78 18 181/97 96 Room Air 06/07/24 11:29 06/07/24 11:29 06/07/24 11:29 06/07/24 11:29 06/07/24 11:29 06/07/24 11:29 Preop Diagnosis: Dysghagia/ GI bleed Operation Date: 06/07/24 12:30 Proposed Procedures p EGD Dilation W/ Balloon 80803, 92774, G0105, K92.2 , R13.10(Not Applicable) - Fabricio Rush DO s Colonoscopy(Not Applicable) - Fabricio Rush DO Was Beta Ryland taken within 24 hours: Yes Was Clonidine taken within 24 hours: N/A Last intake: Intake Last Liquid Date 06/06/24 Last Liquid Time 22:00 Last Solid Date 06/05/24 Last Solid Time 17:00 Social Daily Marijuana Exam alert, oriented x 3, clear to auscultation bilaterally and regular rate & rhythm Airway Submandibular: within normal limits Cervical ROM: within normal limits Mallampati: Class III Dentition: chipped and caps Comments: Comments: Poor dentition History/ROS No significant history except as noted and No significant complaints Pulmonary Exertional Dyspnea, Othopnea, Sleep Apnea and Shortness of Breath CV/HEM Stable Angina and Hypertension None reported Hepatic None reported GI Gastroesophageal Reflux Disease Metabolic Diabetes Mellitus and Morbid Obesity [facility] [place] None reported Neuropsych Anxiety, Depression and Neuropathy Anesthetic Plan ASA status: 4 Anesthesia: Anesthesia Evaluation and General Risk of > 500 ml blood loss (7ml/kg in children): No Medications/Allergies Home Medications Medication Instructions Recorded Confirmed Last Taken Type blood-glucose meter #1 ea 11/20/19 06/03/24 Unknown History pen needle, diabetic 33 gauge x #100 ea 05/23/20 06/03/24 Unknown Rx 5/32 blood-glucose meter #1 ea 12/06/21 06/03/24 Unknown Rx lancets 30 gauge and blood glucose #200 ea 12/06/21 06/03/24 Unknown Rx strips combo pack Doughnut cusion #1 ea 07/02/22 06/03/24 Unknown Rx pantoprazole 40 mg tablet,delayed 40 mg PO BID #60 tabs 03/02/24 06/03/2406/04/24 Rx release rivaroxaban 20 mg tablet (Xarelto) 20 mg PO DAILY #30 tabs 03/02/24 06/03/24 06/03/24 Rx galantamine 8 mg tablet 8 mg PO BID #180 tabs 05/05/24 06/03/24 06/04/24 Rx memantine 10 mg tablet 10 mg PO BID #180 tabs 05/05/24 06/03/24 06/04/24 Rx isosorbide mononitrate 30 mg 30 mg PO QDAY #30 tabs 05/17/24 06/03/24 06/04/24 Rx tablet,extended release 24 hr hydrocortisone 2.5 % topical cream 1 applic ND QID PRN hemorrhoids 10 05/31/24 06/07/24 Unknown Rx with perineal applicator days #30 grams (Anusol-HC) hydroxyzine pamoate 50 mg capsule 50 mg PO BEDTIME 06/03/24 06/03/24 06/04/24 History cetirizine 10 mg tablet 10 mg PO DAILY #30 tabs 06/07/24 06/07/24 06/04/24 Rx doxepin 100 mg capsule 100 mg PO TID PRN anxiety #90 caps 06/07/24 06/07/24 06/04/24 Rx duloxetine 60 mg capsule,delayed 60 mg PO BID #60 caps 06/07/24 06/07/24 06/04/24 Rx release (Cymbalta) ezetimibe 10 mg tablet 10 mg PO DAILY #30 tabs 06/07/24 06/07/24 06/04/24 Rx lancets 33 gauge #100 ea 06/07/24 Unknown Rx metformin 500 mg tablet,extended 500 mg PO BID #60 tabs 06/07/24 06/07/24 06/04/24 Rx release 24 hr sitagliptin phosphate 100 mg 100 mg PO DAILY #30 tabs 06/07/24 06/07/24 06/04/24 Rx tablet (Januvia) Allergies Allergy/AdvReac Type Severity Reaction Status Date / Time hydrocodone Allergy Unknown Itching Verified 05/31/24 09:46 alcohol Allergy Unknown Verified 05/31/24 09:46 aspirin AdvReac Severe ADR-Cramping Verified 05/31/24 09:46 of the Muscles Current Medications Generic Name Dose Route Start Last Admin Trade Name Freq PRN Reason Stop Dose Admin Sodium Chloride 1,000 mls @ 30 mls/hr 06/07/24 11:15 06/07/24 11:33 Sodium Chloride 0.9% IV 06/08/24 11:14 30 mls/hr .Q24H MIGUEL Administration PFSH Anesthesia Medical History Type 2 diabetes mellitus longterm (current) use of opiate analgesic Pain management contract signed Bleeding Erectile dysfunction Controlled diabetes mellitus with hyperglycemia, with long-term current use of insulin Benign essential hypertension with target blood pressure below 140/90 Dyslipidemia DMITRIY (obstructive sleep apnea) ROGEL (dyspnea on exertion) Atypical chest pain the EKG revealed a normal sinus rhythm with possible old inferior wall myocardial infarction. No significant ST-T changes. Loose body in elbow joint Osteoarthritis of elbows, bilateral Osteoarthritis of knees, bilateral Cubital tunnel syndrome, bilateral Bilateral carpal tunnel syndrome Controlled diabetes mellitus with hyperglycemia, without long-term current use of insulin Environmental and seasonal allergies History of intravenous drug use in remission Chronic deep vein thrombosis of lower extremity Right Chronic obstructive pulmonary disease, unspecified Cervical spondylosis with myelopathy and radiculopathy Neuropathy Anxiety Chronic musculoskeletal pain Obesity Surgical History History of thumb surgery History of knee surgery History of cholecystectomy Family History Other CVA (cerebrovascular accident due to intracerebral hemorrhage) Heart disease Hypertension Lung disease Social History Smoking and tobacco/nicotine status: never used tobacco/nicotine Quit status (tobacco/nicotine): has quit using Year quit tobacco: 2013 - 2PPD x 45 Years Alcohol intake: never Substance/Drug Use: never Lives independently: Yes Household members: spouse Marital status: Current occupational status: disabled Do you think of yourself as: Straight/Heterosexual Current gender identity: Male Data Anesthesia Cardiac Studies: Sestamibi Stress Test (Cardiology) 05/07/22
[2024-06-07 14:15] VITALS: BP 163/92; PULSE 87; RESP 20; O2SAT 92
[2024-06-07 14:34] VITALS: BP 128/95; BP 166/94; PULSE 88; PULSE 89; RESP 20; O2SAT 93
--- NOTE | 2024-06-07 15:09 | ANE.PACU2 ---
Inpatient post-anesthesia follow up: Airway intact: Yes Vital signs: Temperature 97.3 F Pulse Rate 89 Respiratory Rate 20 Blood Pressure 166/94 Pulse Oximetry 93 Oxygen Delivery Me thod Room Air Oxygen Flow Rate Fraction of Inspir ed Oxygen Hydration adequate: Yes Nausea and vomiting: No Pain level: 1 Mental status: Baseline
== END 2024-06-07 15:09 | disposition home or self-care (01) ==
PROVIDERS: PCP Family Medicine; Visit Provider Surgery
PROC: 0DJD8ZZ Inspection of Lower Intestinal Tract, Via Natural or Artificial Opening Endoscopic (ICD-10-PCS; CPT 45378; 2024-06-07 12:30)
DX: K29.50 Unspecified chronic gastritis without bleeding (principal); R13.10 Dysphagia, unspecified; K64.8 Other hemorrhoids; G47.30 Sleep apnea, unspecified; I10 Essential (primary) hypertension; K21.9 Gastro-esophageal reflux disease without esophagitis; E66.01 Morbid (severe) obesity due to excess calories; Z68.36 Body mass index [BMI] 36.0-36.9, adult; Z79.01 Long term (current) use of anticoagulants; E11.42 Type 2 diabetes mellitus with diabetic polyneuropathy; Z86.718 Personal history of other venous thrombosis and embolism; F41.9 Anxiety disorder, unspecified
CPT/HCPCS: 36416; 43239; 43249; 82962; 88305; J0330; J2371; J2704; J7030

== ENCOUNTER → 2024-06-21 15:35 | Outpatient (BNVA) | payer MEDICAID, SELFPAY | PROVIDERS: PCP Family Medicine; Visit Provider Surgery | DX: Z09 Encounter for follow-up examination after completed treatment for conditions other than malignant neoplasm (principal); K21.00 Gastro-esophageal reflux disease with esophagitis, without bleeding; K76.6 Portal hypertension; K31.89 Other diseases of stomach and duodenum; R13.10 Dysphagia, unspecified | CPT/HCPCS: 99214 ==

== ENCOUNTER → 2024-06-24 16:33 | Outpatient (BNVA) | payer MEDICAID, SELFPAY | PROVIDERS: PCP Clinical Nurse Specialist Adult Health; Visit Provider Clinical Nurse Specialist Adult Health | DX: E11.69 Type 2 diabetes mellitus with other specified complication (principal) | CPT/HCPCS: 82043 ==

== ENCOUNTER → 2024-06-28 08:35 | Outpatient (BNVA) | payer MEDICAID, SELFPAY | PROVIDERS: PCP Clinical Nurse Specialist Adult Health; Visit Provider Clinical Nurse Specialist Adult Health | DX: E11.69 Type 2 diabetes mellitus with other specified complication (principal) | CPT/HCPCS: 80053; 80061; 83036; 85025; 99213 ==

== ENCOUNTER → 2024-07-14 12:45 | Outpatient (BNVA) | payer MEDICAID, SELFPAY | PROVIDERS: PCP Clinical Nurse Specialist Adult Health; Visit Provider Specialist | DX: R29.90 Unspecified symptoms and signs involving the nervous system (principal); G30.9 Alzheimer's disease, unspecified; F02.80 Dementia in other diseases classified elsewhere, unspecified severity, without behavioral disturbance, psychotic disturbance, mood disturbance, and anxiety; R03.0 Elevated blood-pressure reading, without diagnosis of hypertension; M25.551 Pain in right hip; E11.65 Type 2 diabetes mellitus with hyperglycemia; F32.A Depression, unspecified; M54.9 Dorsalgia, unspecified; R25.1 Tremor, unspecified | CPT/HCPCS: 83520; 99214 ==

== ENCOUNTER → 2024-09-21 14:45 | Outpatient (BNVA) | payer MEDICAID, SELFPAY | PROVIDERS: PCP Nurse Practitioner Family; Visit Provider Nurse Practitioner Family | DX: E11.8 Type 2 diabetes mellitus with unspecified complications (principal) | CPT/HCPCS: 80053; 80061; 83036; 84443; 85025 ==

== ENCOUNTER 2024-10-26 15:06 | Outpatient (CLI) | payer MEDICAID, SELFPAY ==
--- NOTE | 2024-10-26 15:15 | MR_ITS ---
WS: [id number] MRI LUMBAR SPINE NONCONTRAST TECHNIQUE: Sagittal T1, T2 and STIR imaging. Axial T1 and T2 imaging. CLINICAL INFORMATION: M51.26 - Other intervertebral disc displacement, lumbar r... COMPARISON: MRI 08/27/2022 FINDINGS: Lumbar spine is better evaluated today with inclusion of axial T2 imaging. Previous scan did not include axial T2 imaging due to patient's inability to tolerate further imaging due to pain. Mild lumbar curve. No acute compression. Mild disc bulging worse at L4-L5 and L5-S1. Slight anterolisthesis L4 on L5. L1-L2: Normal. L2-L3: Mild annular bulging. Mild LEFT foraminal narrowing. Mild facet arthropathy. L3-L4: Mild annular bulging. Mild facet arthropathy. Mild LEFT and no significant RIGHT foraminal narrowing. Mild facet arthropathy. L4-L5: Grade 1 anterolisthesis. Advanced facet arthropathy. Moderate central canal stenosis with impingement of the traversing L5 nerve roots bilaterally. Mild facet arthropathy. Mild bilateral foraminal narrowing. L5-S1: No significant disc bulging. Moderate facet arthropathy. Spinal canal and foramen are patent. Moderate facet arthropathy. Visualized pelvic bony structures: Normal. Paravertebral soft tissues: Normal. Small disc protrusions in the cervical spine seen on the [employer] imaging. This could be further evaluated with cervical spine MRI. MR/MR lumbar spine wo con* [id number] IMPRESSION: 1. Mild lumbar curve. Slight anterolisthesis L4 on L5. 2. 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 Grade 1 anterolisthesis L4 on L5 with moderate central canal stenosis and i mpingement of traversing L5 nerve roots bilaterally. Facet arthropathy at this level. 4. Mild central canal stenosis L2-L3 and L3-L4 with narrowing of the subarticu lar recess bilaterally. 5. Mild bilateral L4-5 foraminal narrowing.
--- NOTE | 2024-10-26 16:00 | MR_ITS ---
WS: [id number] MRI CERVICAL SPINE NONCONTRAST TECHNIQUE: Sagittal T1, T2 and STIR imaging. Axial T2, gradient, and fiesta imaging. CLINICAL INFORMATION: M54.2 - Cervicalgia COMPARISON: MRI 2017 FINDINGS: Some images degraded by motion. Reversal of the normal cervical lordosis. Slight anterolisthesis C3 on C4. Disc osteophyte protrusions C3-C4, C4-C5, C5-C6, and C6-C7. These are progressed compared to 2017. C2-C3: Moderate LEFT bony foraminal narrowing. Moderate facet arthropathy. C3-C4: Disc osteophyte complex with endplate ridging. Severe LEFT bony foraminal narrowing. Advanced LEFT facet arthropathy with periarticular edema compatible with synovitis. C4-C5: Slight anterolisthesis. Disc osteophyte complex. Mild central canal stenosis. Severe RIGHT foraminal narrowing. C5-C6: Disc osteophyte complex with mild to moderate central canal stenosis and slight indentation of the cervical cord. Severe bilateral bony foraminal narrowing RIGHT greater than LEFT. Moderate facet arthropathy. Uncovertebral joint hypertrophy. C6-C7: Disc osteophyte complex with mild central canal stenosis. Moderate RIGHT and no significant LEFT foraminal narrowing. Disc osteophyte protrusion with slight indentation on the RIGHT ventral cervical cord. C7-T1: Slight anterolisthesis. Mild disc bulging with slight effacement of the ventral thecal sac. Mild to moderate LEFT and no significant RIGHT foraminal narrowing. Moderate facet arthropathy. Visualized brain stem structures: Normal. Prevertebral soft tissues: Normal. MR/MR cervical spin wo con* [id number] IMPRESSION: 1. Reversal of the normal cervical lordosis. This is new compared to 2017 with slight anterolisthesis C3 on C4 and C4 on C5. 2. Disc osteophyte protrusions with mild to moderate C4-C5 C5-C6 and C6-C7 wit h slight indentation on the cervical cord at these levels. 3. Severe bony foraminal narrowing described above worse at LEFT C2-3, LEFT C3 -4, RIGHT C4-5, bilateral C5-C6, and RIGHT C6-C7. 4. Advanced facet arthropathy LEFT C2-3 and LEFT C3-4. Facet synovitis and per iarticular edema LEFT C3-4 likely degenerative or inflammatory
== END 2024-10-26 15:07 | disposition home or self-care (01) ==
PROVIDERS: PCP Nurse Practitioner Family; Visit Provider Nurse Practitioner Family
DX: M51.26 Other intervertebral disc displacement, lumbar region (principal); M51.369 Other intervertebral disc degeneration, lumbar region without mention of lumbar back pain or lower extremity pain; M54.31 Sciatica, right side; G89.29 Other chronic pain; W19.XXXA Unspecified fall, initial encounter; R93.7 Abnormal findings on diagnostic imaging of other parts of musculoskeletal system; M25.78 Osteophyte, vertebrae; M50.21 Other cervical disc displacement, high cervical region; M50.221 Other cervical disc displacement at C4-C5 level; M50.222 Other cervical disc displacement at C5-C6 level; M50.223 Other cervical disc displacement at C6-C7 level; M47.892 Other spondylosis, cervical region; M65.88 Other synovitis and tenosynovitis, other site; M48.02 Spinal stenosis, cervical region; M50.33 Other cervical disc degeneration, cervicothoracic region; M48.03 Spinal stenosis, cervicothoracic region; M47.893 Other spondylosis, cervicothoracic region; M43.8X6 Other specified deforming dorsopathies, lumbar region; M43.16 Spondylolisthesis, lumbar region; M48.061 Spinal stenosis, lumbar region without neurogenic claudication; M47.896 Other spondylosis, lumbar region; M51.379 Other intervertebral disc degeneration, lumbosacral region without mention of lumbar back pain or lower extremity pain; M47.897 Other spondylosis, lumbosacral region
CPT/HCPCS: 72141; 72148

== ENCOUNTER → 2024-12-07 13:06 | Outpatient (BNVA) | payer MEDICAID, SELFPAY | PROVIDERS: PCP Nurse Practitioner Family; Visit Provider Nurse Practitioner Family | DX: E11.8 Type 2 diabetes mellitus with unspecified complications (principal) | CPT/HCPCS: 80053; 80061; 83036; 84443; 85025 ==

== ENCOUNTER 2024-12-23 05:00 | Outpatient (RCR) | payer MEDICAID, SELFPAY | END 2025-01-22 23:59 | disposition home or self-care (01) | LOC: APT 05:00 | PROVIDERS: PCP Nurse Practitioner Family; Visit Provider Nurse Practitioner Family | DX: M54.2 Cervicalgia (principal) | CPT/HCPCS: 97110; 97161; 97530 ==

== ENCOUNTER → 2024-12-23 14:35 | Outpatient (BNVA) | payer MEDICAID, SELFPAY | PROVIDERS: PCP Nurse Practitioner Family; Visit Provider Orthopaedic Surgery | DX: M54.50 Low back pain, unspecified (principal); M54.2 Cervicalgia; M54.9 Dorsalgia, unspecified | CPT/HCPCS: 72050; 72110; 99203 ==

== ENCOUNTER → 2024-12-29 14:14 | Outpatient (BNVA) | payer MEDICAID, SELFPAY | PROVIDERS: PCP Nurse Practitioner Family; Visit Provider Student in an Organized Health Care Education/Training Program | DX: M25.551 Pain in right hip (principal); M16.11 Unilateral primary osteoarthritis, right hip | CPT/HCPCS: 73502; 99203 ==

== ENCOUNTER → 2025-01-04 14:28 | Outpatient (BNVA) | payer MEDICAID, SELFPAY | PROVIDERS: PCP Nurse Practitioner Family; Visit Provider Student in an Organized Health Care Education/Training Program | DX: M17.0 Bilateral primary osteoarthritis of knee (principal); M25.561 Pain in right knee; M25.562 Pain in left knee; G89.29 Other chronic pain | CPT/HCPCS: 73560; 73565; 99214 ==

== ENCOUNTER → 2025-01-11 12:48 | Outpatient (BNVA) | payer MEDICAID, SELFPAY | PROVIDERS: PCP Clinical Nurse Specialist Adult Health; Visit Provider Specialist | DX: G30.9 Alzheimer's disease, unspecified (principal); R29.90 Unspecified symptoms and signs involving the nervous system; F02.80 Dementia in other diseases classified elsewhere, unspecified severity, without behavioral disturbance, psychotic disturbance, mood disturbance, and anxiety; R03.0 Elevated blood-pressure reading, without diagnosis of hypertension; F41.1 Generalized anxiety disorder; F12.20 Cannabis dependence, uncomplicated; G47.33 Obstructive sleep apnea (adult) (pediatric); F17.200 Nicotine dependence, unspecified, uncomplicated; M47.12 Other spondylosis with myelopathy, cervical region | CPT/HCPCS: 99214 ==

== ENCOUNTER 2025-01-23 05:00 | Outpatient (RCR) | payer MEDICAID, SELFPAY | END 2025-02-03 13:35 | disposition home or self-care (01) | LOC: APT 05:00 | PROVIDERS: PCP Clinical Nurse Specialist Adult Health; Visit Provider Nurse Practitioner Family | DX: M54.2 Cervicalgia (principal) | CPT/HCPCS: 97110; 97530 ==

== ENCOUNTER → 2025-01-25 15:30 | Outpatient (BNVA) | payer OTHER, SELFPAY | PROVIDERS: PCP Clinical Nurse Specialist Adult Health; Visit Provider Orthopaedic Surgery | DX: Z01.818 Encounter for other preprocedural examination (principal); M48.02 Spinal stenosis, cervical region; G99.2 Myelopathy in diseases classified elsewhere | CPT/HCPCS: 36415; 80053; 81001; 83036; 85025; 99214 ==

== ENCOUNTER → 2025-02-01 09:16 | Outpatient (BNVA) | payer MEDICAID, SELFPAY | PROVIDERS: PCP Clinical Nurse Specialist Adult Health; Visit Provider Family Medicine | DX: Z01.818 Encounter for other preprocedural examination (principal) | CPT/HCPCS: 93005 ==

== ENCOUNTER 2025-02-16 10:26 | Inpatient (IN) | payer MEDICAID, SELFPAY ==
[2025-02-11 09:44] VITALS: BP 140/82; BMI 36.7
[2025-02-16] VITALS (27 sets, daily range): BP systolic 146–189; BP diastolic 47–99; PULSE 79–124; RESP 9–23; TEMP 36.2–36.7; O2SAT 90–98; BMI 36.7
[2025-02-16 06:18] LABS: Glucose Point of Care 215 mg/dL (70-110)
[2025-02-16] MEDS: sodium chloride 0.9% 1,000 ML 30 ML IV (06:20)
--- NOTE | 2025-02-16 06:29 | W.PM.OPSUD ---
Surgery/Procedure H&P Update DATE OF PROCEDURE: February 16, 2025 DATE H&P PERFORMED: 01/25/25 H&P UPDATE INFORMATION: I have reviewed H&P completed within last 30 days, I have examined patient prior to procedure and No changes to prior documentation PREOP DIAGNOSIS: Cervical spondylosis with myelopathy and radiculopathy PLANNED PROCEDURE: Operation Date: 02/16/25 07:00 Proposed Procedures p Anterior Cervical Discectomy & Fusion ACDF w/ Anterior Interbody Fusion w/ Cage w/ Instrumentation w/ Allograft w/ Navigation(Not Applicable) - Torsten Mallory DO
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
[2025-02-16] MEDS: ceFAZolin 2,000 mg SDV 2000 MG IVP ×3 (07:17→23:35)
[2025-02-16] MEDS: ceFAZolin 1,000 mg SDV 1000 MG IVP (07:38)
[2025-02-16] MEDS: lidocaine-epi 1% 20 mL INJ 10 ML INJECTION (08:59)
--- NOTE | 2025-02-16 10:33 | PM.OP ---
Operative Report Date of procedure: February 16, 2025 Pre-op diagnosis: Cervical spondylosis with myelopathy and radiculopathy Post-op diagnosis: same Procedure done: 1. Anterior discectomy C3/4 2. Anterior discectomy C4/5 3. Anterior diskectomy C5/6 4. Anterior discectomy C6/7 5. Insertion of cage at C3/4 6. Insertion of cage at C4/5 7. Insertion of cage C5/6 8. Insertion of Cage C6/7 9. Instrumentation with anterior plate from C3-C7 10. Use of allograft Surgeon: Torsten Mallory DO Estimated blood loss (mL): 25 Procedure: 1. Anterior discectomy C3/4 2. Anterior discectomy C4/5 3. Anterior diskectomy C5/6 4. Anterior discectomy C6/7 5. Insertion of cage at C3/4 6. Insertion of cage at C4/5 7. Insertion of cage C5/6 8. Insertion of Cage C6/7 9. Instrumentation with anterior plate from C3-C7 10. Use of allograft The patient was taken to the operating room, where he underwent general endotracheal anesthesia without complications. He was then positioned supine on the operating table, and all areas of impingement were well padded. The arms were carefully padded and tucked at his sides. A roll was placed between the shoulder blades.. An x-ray was done to determine the appropriate level for the skin incision. The entire neck was then sterilely prepped and draped in the usual fashion. Neuromonitoring was attached prior to prepping. A transverse skin incision was made and carried down to the platysma muscle. This was then split in line with its fibers. Blunt dissection was carried down medial to the carotid sheath and lateral to the trachea and esophagus until the anterior cervical spine was visualized. A needle was placed into a disc and an x-ray was done to determine its location. The longus colli muscles were then elevated bilaterally with the electrocautery unit. Self-retaining retractors were placed deep to the longus colli muscle. Attention was brought to the C3/4 level that was confirmed on x-ray. A caspar pin was placed into the C3 vertebrae and the C4 vertebrae. The disk space was then distracted. The microscope was then brought in. A radical anterior discectomies were performed at C3/4. This included complete removal of the anterior annulus, nucleus, and posterior annulus. The posterior longitudinal ligament was removed as were the posterior osteophytes. Foraminotomies were then accomplished bilaterally. This was done using a high speed libia, kerrison rongeurs and curretes Once all of this was accomplished, the curved currette was used to check for any residual compression. The central canal was wide open as were the foramen. A high-speed bur was used to remove the cartilaginous endplates above and below the interspace. Bleeding cancellous bone was exposed. The disc space were measured and appropriate size cage were placed sterilely onto the field. Allograft graft was packed into the cages. The cage was then placed and there was good juxtaposition against the bleeding decorticated surfaces and good distraction of each interspace. Attention was brought to the next interspace. The [place] pins were removed. Bone wax was used to prevent any bleeding from occurring at the pin sites. Attention was brought to the C4/5 level that was confirmed on x-ray. A caspar pin was placed into the C4 vertebrae and the C5 vertebrae. The disk space was then distracted. The microscope was then brought in. A radical anterior discectomies were performed at C4/5. This included complete removal of the anterior annulus, nucleus, and posterior annulus. The posterior longitudinal ligament was removed as were the posterior osteophytes. Foraminotomies were then accomplished bilaterally. This was done using a high speed libia, kerrison rongeurs and curretes Once all of this was accomplished, the curved currette was used to check for any residual compression. The central canal was wide open as were the foramen. A high-speed bur was used to remove the cartilaginous endplates above and below the interspace. Bleeding cancellous bone was exposed. The disc space were measured and appropriate size cage were placed sterilely onto the field. Allograft graft was packed into the cages. The cage was then placed and there was good juxtaposition against the bleeding decorticated surfaces and good distraction of each interspace. Attention was brought to the next interspace. The [place] pins were removed. Bone wax was used to prevent any bleeding from occurring at the pin sites. Attention was brought to the C5/6 level that was confirmed on x-ray. A caspar pin was placed into the C5 vertebrae and the C6 vertebrae. The disk space was then distracted. The microscope was then brought in. A radical anterior discectomies were performed at C5/6. This included complete removal of the anterior annulus, nucleus, and posterior annulus. The posterior longitudinal ligament was removed as were the posterior osteophytes. Foraminotomies were then accomplished bilaterally. This was done using a high speed libia, kerrison rongeurs and curretes Once all of this was accomplished, the curved currette was used to check for any residual compression. The central canal was wide open as were the foramen. A high-speed bur was used to remove the cartilaginous endplates above and below the interspace. Bleeding cancellous bone was exposed. The disc space were measured and appropriate size cage were placed sterilely onto the field. Allograft graft was packed into the cages. The cage was then placed and there was good juxtaposition against the bleeding decorticated surfaces and good distraction of each interspace. Attention was brought to the next interspace. The [place] pins were removed. Bone wax was used to prevent any bleeding from occurring at the pin sites. Attention was brought to the C6/7 level that was confirmed on x-ray. A caspar pin was placed into the C6 vertebrae and the C7 vertebrae. The disk space was then distracted. The microscope was then brought in. A radical anterior discectomies were performed at C6/7. This included complete removal of the anterior annulus, nucleus, and posterior annulus. The posterior longitudinal ligament was removed as were the posterior osteophytes. Foraminotomies were then accomplished bilaterally. This was done using a high speed libia, kerrison rongeurs and curretes Once all of this was accomplished, the curved currette was used to check for any residual compression. The central canal was wide open as were the foramen. A high-speed bur was used to remove the cartilaginous endplates above and below the interspace. Bleeding cancellous bone was exposed. The disc space were measured and appropriate size cage were placed sterilely onto the field. Allograft graft was packed into the cages. The cage was then placed and there was good juxtaposition against the bleeding decorticated surfaces and good distraction of each interspace. The [place] pins were removed. Bone wax was used to prevent any bleeding from occurring at the pin sites. The appropriate size anterior cervical locking plate was chosen and bent into gentle lordosis. Two screws were then placed into each of the vertebral bodies at C3, C4, C5, C6 and C7. There was excellent purchase. A final x-ray was done confirming good position of the hardware and Cages. The locking screws were then applied, also with excellent purchase. Following a final copious irrigation, there was good hemostasis and no dural leaks. The carotid pulse was strong. The wounds were then closed in layers using 2-0 Vicryl suture for the platysma muscle, 2-0 Vicryl suture for the subcutaneous tissue, and 4-0 monocryl suture in a subcuticular skin closure. Glue was placed followed by application of a sterile dressing. The drain was hooked to bulb suction. A soft collar was applied. The patient was then carefully returned to the supine position on his hospital bed where he was reversed and extubated and taken to the recovery room having tolerated the procedure well.
[2025-02-16] MEDS: fentaNYL 50 mcg/mL INJ 2mL IVP ×2 (10:37→10:45)
[2025-02-16 10:53] LABS: Glucose Point of Care 239 mg/dL (70-110)
[2025-02-16] MEDS: HYDROmorphone 1 mg/mL INJ 1ml 0.5 MG IVP ×2 (11:00→11:37)
--- NOTE | 2025-02-16 11:21 | PC.NURSE ---
1110 - bedside report given to RIKY Cunningham -
[2025-02-16 13:52] LABS: Glucose Point of Care 275 mg/dL (70-110)
--- NOTE | 2025-02-16 14:42 | SUR.PHASEI ---
11:30 MEDICATED FOR PAIN. ROM AND SENSATION IN ALL 4 EXTREMITIES.
[2025-02-16] MEDS: insulin regular-human 100 units/1 mL 10 UNIT IVP (14:44)
--- NOTE | 2025-02-16 14:45 | ANE.PACU2 ---
Inpatient post-anesthesia follow up: Airway intact: Yes Vital signs: Temperature 97.9 F Pulse Rate 88 Respiratory Rate 16 Blood Pressure 166/91 Pulse Oximetry 97 Oxygen Delivery Me thod Room Air Oxygen Flow Rate 3 Fraction of Inspir ed Oxygen Hydration adequate: Yes Nausea and vomiting: No Pain level: 1 Mental status: Baseline
--- NOTE | 2025-02-16 15:16 | XR_ITS ---
WS: [id number] Exam: XR cervical spine 3V* [id number] Date/Time of Exam: 02/16/2025 3:16 PM Reason For Exam: or pic, acdf Limited C-arm images of the C-spine in the AP and lateral projections are submitted. The images depict anterior plate and screw fixation of the C-spine from C3-C7 with disc spacers. An ET tube is noted in the airway. Images obtained for intraoperative purposes.
[2025-02-16] MEDS: lactated ringers 1,000 ML 90 ML IV (16:06)
[2025-02-16 16:42] LABS: Glucose Point of Care 286 mg/dL (70-110)
--- NOTE | 2025-02-16 17:55 | PC.NURSE ---
Dr. Mallory notified patient did not have a sliding scale ordered. Dr. Mallory gave verbal orders to give a low dose sliding scale to patient.
--- NOTE | 2025-02-16 18:08 | PC.NURSE ---
Dr. Mallory gave verbal orders to hold metformin for a couple days after surgery.
[2025-02-16] MEDS: cyclobenzaprine 10 mg Tablet PO (18:17)
[2025-02-16] MEDS: pantoprazole DR 40 mg Tablet PO (18:17)
[2025-02-16] MEDS: duloxetine 60 mg Capsule PO (18:17)
[2025-02-16] MEDS: gabapentin 300 mg Capsule PO (18:17)
[2025-02-16] MEDS: docusate sodium 100 mg Capsule PO (18:17)
[2025-02-16] MEDS: ketorolac 30 mg/mL INJ IVP (18:18)
[2025-02-16] MEDS: insulin lispro 100 unit/1 mL SUBCUT ×2 (18:18→21:05)
[2025-02-16] MEDS: oxyCODONE-APAP 5-325 mg Tablet PO (20:06)
[2025-02-16 20:36] LABS: Glucose Point of Care 331 mg/dL (70-110)
[2025-02-16] MEDS: hyDROXYzine 25 mg Capsule 50 MG PO (21:05)
[2025-02-16] MEDS: morphine 4 mg/mL SDV 1 mL 2 MG IVP (23:49)
[2025-02-17] VITALS (8 sets, daily range): BP systolic 177–179; BP diastolic 84–89; PULSE 70–90; RESP 16–17; TEMP 36.5–36.7; O2SAT 92–94
[2025-02-17] MEDS: lactated ringers 1,000 ML 90 ML IV (00:58)
[2025-02-17] MEDS: ceFAZolin 2,000 mg SDV 2000 MG IVP (06:00)
[2025-02-17] MEDS: morphine 4 mg/mL SDV 1 mL 2 MG IVP (06:08)
[2025-02-17 06:30] LABS: Glucose Point of Care 202 mg/dL (70-110)
[2025-02-17] MEDS: isosorbide mononitrate ER 30 mg Tablet PO (08:23)
[2025-02-17] MEDS: duloxetine 60 mg Capsule PO (08:23)
[2025-02-17] MEDS: gabapentin 300 mg Capsule PO (08:24)
[2025-02-17] MEDS: cetirizine 10 mg Tablet PO (08:24)
[2025-02-17] MEDS: docusate sodium 100 mg Capsule PO (08:24)
[2025-02-17] MEDS: cyclobenzaprine 10 mg Tablet PO (08:24)
[2025-02-17] MEDS: oxyCODONE-APAP 5-325 mg Tablet PO (08:24)
[2025-02-17] MEDS: pantoprazole DR 40 mg Tablet PO (08:24)
[2025-02-17] MEDS: ezetimibe 10 mg Tablet PO (08:24)
[2025-02-17] MEDS: insulin lispro 100 unit/1 mL SUBCUT (08:25)
--- NOTE | 2025-02-17 08:27 | P.DS_ITS ---
Discharge Providers Date of Admission: 02/16/25 10:26 Date of Discharge: February 17, 2025 Attending Provider at Admission: Torsten Mallory DO Attending Provider at Discharge: Torsten Mallory DO Primary Care Provider: ALEKSANDR Robles Reason for Visit Reason for Visit: M48.02 Physical Exam Narrative: Patient doing well able to eat breakfast dinner. At this point is obese complains of numbness in his left arm and ulnar nerve distribution. She had a history of ulnar nerve neuropathy. At this point plan is to discharge him today Urinary Catheter Management: Meier: Cath Placed During This Visit: yes, but has since been removed by the nurse Reason for Continuing Indwelling Catheter: Decision to DC Catheter Urinary Catheter Date of Insertion: 02/16/25 Urinary Catheter Time of Insertion: 07:30 Date Urinary Catheter Removed: 02/17/25 Time Urinary Catheter Discontinued: 06:16 Discharge Data Studies Completed and Pending Completed Studies During Hospitalization Category Date Time Status XR cervical spine 3V* [id number] Routine Exams 02/16/25 15:16 Completed Pending at discharge Category Date Time Status C-arm Fluoroscopy [id number] Routine Exams 02/16/25 05:56 Taken Laboratory Results POC Glucose 202 mg/dL (70-110) H 02/17/25 06:23 Vitals Last Vital Signs Temp 98.0 F 02/17/25 07:02 Pulse 70 02/17/25 07:02 Resp 16 02/17/25 07:02 BP 179/86 02/17/25 07:02 Pulse Ox 92 02/17/25 07:02 O2 Del Method Room Air 02/17/25 07:02 O2 Flow Rate 3 02/16/25 11:27 Discharge Plan Discharge Patient Disposition: Home Condition: Stable Prescriptions: New oxycodone 5 mg tablet 5 mg PO Q4H PRN (Reason: pain) 7 Days Qty: 42 0RF Continued (DME) pen needle, diabetic 33 gauge x 5/32 needle See Rx Instructions .ROUTE .MEDSUPPLY Qty: 100 5RF Rx Instructions: daily (DME) blood-glucose meter Kit See Rx Instructions .ROUTE .MEDSUPPLY Qty: 1 Rx Instructions: As directed pantoprazole 40 mg tablet,delayed release (DR/EC) 40 mg PO BID Qty: 180 1RF metformin 500 mg tablet extended release 24 hr 500 mg PO BID Qty: 180 1RF isosorbide mononitrate 30 mg tablet extended release 24 hr 30 mg PO QDAY Qty: 90 1RF hydroxyzine pamoate 50 mg capsule 50 mg PO BEDTIME Qty: 90 1RF ezetimibe 10 mg tablet 10 mg PO DAILY Qty: 90 1RF duloxetine [Cymbalta] 60 mg capsule,delayed release(DR/EC) 60 mg PO BID Qty: 180 1RF doxepin 100 mg capsule 100 mg PO TID PRN (Reason: anxiety) Qty: 270 1RF cetirizine 10 mg tablet 10 mg PO DAILY Qty: 90 1RF gabapentin 300 mg capsule 300 mg PO BID Qty: 60 2RF Ozempic 0.25 mg or 0.5 mg (2 mg/3 mL) pen injector 0.5 mg SUBCUT .weekly Qty: 9 1RF (DME) Doughnut cusion See Rx Instructions .Route .MEDSUPPLY Qty: 1 0RF Rx Instructions: As directed (DME) lancets 33 gauge misc See Rx Instructions .ROUTE .MEDSUPPLY Qty: 100 2RF Rx Instructions: daily (DME) blood-glucose meter Misc See Rx Instructions .Route Qty: 1 0RF Rx Instructions: As directed (DME) lancets-blood glucose strips 30 gauge combo pack See Rx Instructions .Route Qty: 200 3RF Rx Instructions: once daily (DME) auto-titrating CPAP 6-16 CM with tubing, mask and all other supplies See Rx Instructions .ROUTE .MEDSUPPLY Qty: 1 0RF Rx Instructions: As directed cyclobenzaprine 10 mg tablet 10 mg PO BID Qty: 60 2RF (DME) Bone Growth Stimulator See Rx Instructions .Route .MEDSUPPLY Qty: 1 0RF Rx Instructions: As directed Held Xarelto 20 mg tablet 20 mg PO DAILY Qty: 90 1RF Hold Instructions: Resume on 02/19/25. Discharge Orders: Discharge Order (Routine); Ordered 02/17/25 Ordered By: Torsten Mallory Discharge Diet: Advance as tolerated Discharge Activity: Limit activity as instructed Patient Instructions: Acute Wound Care (DC), Opioid Safety, Post Anesthesia Care, Patient Portal & Abdi Instructions Activity Restrictions/Additional Instructions: Thank you for choosing [facility] for your care! The following is a list of instructions, from your provider, to follow upon your discharge to ensure you have the optimal recovery from your recent injury or surgery. Anterior Cervical Discectomy and Fusion: What to Expect at Home Your Recovery Follow-up care is a matute part of your treatment and safety. Be sure to make and go to all appointments, and call your doctor if you are having problems. If you do not already have a follow-up appointment made, call office in the next 1-3 days to make follow up appointment for 2 weeks at [phone]. It is also a good idea to know your test results and keep a list of the medicines you take. You can expect your neck to feel stiff or sore after surgery. This should improve in the weeks after surgery. But it may take 4 to 6 months for you to get better completely. You may have trouble sitting or standing in one position for very long and may need pain medicine in the weeks after your surgery. It may take 4 to 6 weeks to get back to your usual activities, but it may depend on what kind of surgery you had. Your throat will feel sore and it may be difficult to swallow for the first 3 days after your surgery. As long as you can get liquids down without difficulty, this should slowly improve, otherwise call our office or seek medical attention if it becomes increasingly difficult to get anything down including liquids. Avoid hot liquids for first 3-5 days. Soothing foods/liquids such as jello, pudding, and luke warm soups are recommended until swallowing improves. Staying elevated will also help, it's advised you keep propped up at while sleeping to help reduce the swelling. You may use an ice pack directly on your incision or around it on the front of your neck, using a cloth to protect your skin; and a heating pad to the back of your neck as needed. Do not use over the counter anti-inflammatory medications (Ibuprofen, Motrin, Aleve, Advil, etc) Taking these meds after having a fusion can delay fusion rates, we recommend you avoid them for the first 3 months after your surgery[address] Dr. Mallory may advise you to work with a physical therapist to strengthen the muscles around your neck and back - this will be discussed at your follow - up appointments. The pain or numbness you were having in your arms before surgery should get better or go away completely. This care sheet gives you a general idea about how long it will take for you to recover. But each person recovers at a different pace. Follow the steps below to get better as quickly as possible. How can you care for yourself at home? Activity ? Rest when you feel tired. Getting enough sleep will help you recover. ? Try to walk each day. Start by walking a little more than you did the day before. Bit by bit, increase the amount you walk. Walking boosts blood flow and helps prevent pneumonia and constipation. Walking may also decrease your muscle soreness after surgery. ? No lifting anything that is more that 5 pounds. This may include heavy grocery bags and milk containers, a heavy briefcase or backpack, cat litter or dog food bags, a child, or a vacuum catch basin cleaner. ? Avoid strenuous activities, such as bicycle riding, jogging, weightlifting, or aerobic exercise, until your doctor says it is okay. ? Do not drive until your follow-up visit after your surgery, or until your doctor says it isokay. ? Avoid taking long car trips for 2 to 4 weeks after surgery. Your neck may become tired and painful from sitting too long in one position. ? You will probably need to take 4 to 6 weeks off from work. It depends on the type of work you do and how you feel. ? You may have sex as soon as you feel able, but avoid positions that put stress on your neck or cause pain. Diet ? You can eat your normal diet. If your stomach is upset, try bland, low-fat foods like plain rice, broiled chicken, toast, and yogurt ? Drink plenty of fluids. If you have kidney, heart, or liver disease and have to limit fluids, talk with your doctor before you increase the amount of fluids you drink. ? You may notice that your bowel movements are not regular right after your surgery. This is common. Try to avoid constipation and straining with bowel movements. You may want to take a fiber supplement every day. If you have not had a bowel movement after a couple of days, ask your doctor about taking a mild laxative. Medicines ? Take pain medicines exactly as directed. 1. If Dr. Mallory gave you a prescription medicine for pain, take lt as prescribed. 2. Do not take two or more pain medicines at the same time unless the doctor told you to. Many pain medicines have acetaminophen, which is Tylenol. Too much acetaminophen {Tylenol) can be harmful. 3. If you think your pain pill is making you sick to your stomach: 4. Take your pills after meals (unless your doctor has told you not to). 5. Ask your Dr. for a different pain pill. Incisioncare ? Remove your dressing 48hours after your surgery. Ok to shower and get the incision wet. Do not overtly wash your incision. When done, pad dry, leave open to air thereafter. Avoid creams and ointments directly on your incision. ? Your sutures in the incision will dissolve and fall out on their own. ? Keep the area clean and dry. You may cover it with a gauze bandage if it weeps or rubs against clothing; if you choose to do this, change the dressing everyday. Other instructions ? Use a heating pad, hot water bottle, or gentle massage on your back to reduce stiffness. Avoid putting heat on your incision When should you call for help? ? Call 911 anytime you think you may need emergency care. For example, call if: ? You pass out (lose consciousness). ? You have sudden chest pain and shortness of breath, or you cough upblood. ? You cannot swallow. ? You have severe pain in your neck or back. ? Call your Dr. or seek immediate medical care if: ? You have pain that does not get better after you take pain pills. ? You have loose stitches, or your incision comes open. ? You have blood or fluid draining from the incision. ? You have signs of infection, such as: 1. Increased pain, swelling, warmth, or redness. 2. Red streaks leading from the site. 3. Pus draining from the site. 4. Swollen lymph nodes in your neck or armpits. 5. A fever. ? You have severe pain in your arms. ? You have new or increased weakness or numbness in your arms. ? Watch closely for any changes in your health, and be sure to contact your doctor if: ? You do not have a bowel movement after taking a laxative. Discharge Attestations Time Spent in Discharge Care*: less than 30 min Quality Metrics Clinical Quality Measures [ No reported AMI, CVA or VTE this stay] Coding Level of Care Code Acute Code for Chg Fwd
--- NOTE | 2025-02-17 10:57 | PC.NURSE ---
Discharge Note Patient discharged to [home] via private vehicle [] accompanied by []. Discharge instructions reviewed with patient and/or associate financial representative. Mobile pharmacy medications and/or prescriptions provided. Belongings/home medications returned.
== END 2025-02-17 10:30 | disposition home or self-care (01) | DRG 473 ==
LOC: MEDSURG 14:47
PROVIDERS: Admitting Provider Orthopaedic Surgery; PCP Nurse Practitioner Family; Visit Provider Orthopaedic Surgery
PROC: 0RB30ZZ Excision of Cervical Vertebral Disc, Open Approach (ICD-10-PCS; CPT 22551; principal; 2025-02-16 07:00)
DX: M47.12 Other spondylosis with myelopathy, cervical region (principal); M47.22 Other spondylosis with radiculopathy, cervical region; G30.9 Alzheimer's disease, unspecified; F02.80 Dementia in other diseases classified elsewhere, unspecified severity, without behavioral disturbance, psychotic disturbance, mood disturbance, and anxiety; E11.40 Type 2 diabetes mellitus with diabetic neuropathy, unspecified; I10 Essential (primary) hypertension; E78.5 Hyperlipidemia, unspecified; E66.9 Obesity, unspecified; M19.022 Primary osteoarthritis, left elbow; M19.021 Primary osteoarthritis, right elbow; M17.0 Bilateral primary osteoarthritis of knee; F41.9 Anxiety disorder, unspecified; G89.29 Other chronic pain; Z87.891 Personal history of nicotine dependence; Z68.36 Body mass index [BMI] 36.0-36.9, adult; Z79.01 Long term (current) use of anticoagulants; Z79.84 Long term (current) use of oral hypoglycemic drugs; Z79.899 Other long term (current) drug therapy; Z88.6 Allergy status to analgesic agent; Z88.5 Allergy status to narcotic agent; Z91.09 Other allergy status, other than to drugs and biological substances
CPT/HCPCS: 36416; 51702; 72040; 76000; 82962; 96372; 97110; 97161; C1713; C1763; C9359; J0131; J0690; J1100; J1171; J1815; J1885; J2250; J2270; J2371; J2405; J2704; J3010; J3490; J7030; J7120; J9999

== ENCOUNTER → 2025-02-22 12:04 | Outpatient (BNVA) | payer MEDICAID, SELFPAY ==
[2025-02-11 09:44] VITALS: BP 140/82; BMI 36.7
== END ==
PROVIDERS: PCP Nurse Practitioner Family; Visit Provider Nurse Practitioner Family
DX: E11.8 Type 2 diabetes mellitus with unspecified complications (principal); I10 Essential (primary) hypertension; E78.5 Hyperlipidemia, unspecified
CPT/HCPCS: 80053; 80061; 83036; 84443; 85025

== ENCOUNTER → 2025-03-03 08:40 | Outpatient (BNVA) | payer MEDICAID, SELFPAY ==
[2025-02-11 09:44] VITALS: BP 140/82; BMI 36.7
== END ==
PROVIDERS: PCP Nurse Practitioner Family; Visit Provider Orthopaedic Surgery
DX: Z98.890 Other specified postprocedural states (principal); Z98.1 Arthrodesis status
CPT/HCPCS: 99024

== ENCOUNTER → 2025-03-30 11:19 | Outpatient (BNVA) | payer MEDICAID, SELFPAY ==
[2025-02-11 09:44] VITALS: BP 140/82; BMI 36.7
== END ==
PROVIDERS: PCP Nurse Practitioner Family; Visit Provider Podiatrist Foot & Ankle Surgery
DX: M72.2 Plantar fascial fibromatosis (principal); E11.40 Type 2 diabetes mellitus with diabetic neuropathy, unspecified; Z79.84 Long term (current) use of oral hypoglycemic drugs
CPT/HCPCS: 99203

== ENCOUNTER → 2025-03-31 11:15 | Outpatient (BNVA) | payer MEDICAID, SELFPAY ==
[2025-02-11 09:44] VITALS: BP 140/82; BMI 36.7
== END ==
PROVIDERS: PCP Nurse Practitioner Family; Visit Provider Orthopaedic Surgery
DX: Z98.890 Other specified postprocedural states (principal); Z98.1 Arthrodesis status; R10.2 Pelvic and perineal pain
CPT/HCPCS: 72040; 99024

== ENCOUNTER → 2025-04-14 14:26 | Outpatient (BNVA) | payer MEDICAID, SELFPAY ==
[2025-02-11 09:44] VITALS: BP 140/82; BMI 36.7
== END ==
PROVIDERS: PCP Nurse Practitioner Family; Visit Provider Orthopaedic Surgery
DX: Z98.890 Other specified postprocedural states (principal); Z09 Encounter for follow-up examination after completed treatment for conditions other than malignant neoplasm
CPT/HCPCS: 99024

== ENCOUNTER → 2025-05-03 09:41 | Outpatient (BNVA) | payer MEDICAID, SELFPAY ==
[2025-02-11 09:44] VITALS: BP 140/82; BMI 36.7
== END ==
PROVIDERS: PCP Nurse Practitioner Family; Visit Provider Student in an Organized Health Care Education/Training Program
DX: M16.11 Unilateral primary osteoarthritis, right hip (principal)
CPT/HCPCS: 73502; 99213

== ENCOUNTER 2025-05-12 13:06 | Outpatient (CLI) | payer MEDICAID, SELFPAY ==
[2025-02-11 09:44] VITALS: BP 140/82; BMI 36.7
[2025-05-12 16:13] LABS: Estmated Average Glucose 174; Hemoglobin A1C 7.7 % (4.0-6.0)
== END 2025-05-12 13:07 | disposition home or self-care (01) ==
LOC: LAB 13:07
PROVIDERS: PCP Nurse Practitioner Family; Visit Provider Student in an Organized Health Care Education/Training Program
DX: E11.8 Type 2 diabetes mellitus with unspecified complications (principal); Z98.890 Other specified postprocedural states; Z98.1 Arthrodesis status
CPT/HCPCS: 36415; 72040; 83036; 99024

== ENCOUNTER → 2025-05-31 15:18 | Outpatient (BNVA) | payer MEDICAID, SELFPAY ==
[2025-06-01 12:39] VITALS: BP 140/82; BMI 36.7
== END ==
PROVIDERS: PCP Nurse Practitioner Family; Visit Provider Student in an Organized Health Care Education/Training Program
DX: M16.11 Unilateral primary osteoarthritis, right hip (principal); M25.551 Pain in right hip; M25.552 Pain in left hip
CPT/HCPCS: 99214

== ENCOUNTER → 2025-06-06 14:23 | Outpatient (BNVA) | payer MEDICAID, SELFPAY ==
[2025-06-01 12:39] VITALS: BP 140/82; BMI 36.7
== END ==
PROVIDERS: PCP Nurse Practitioner Family; Visit Provider Internal Medicine
DX: R91.1 Solitary pulmonary nodule (principal); G47.33 Obstructive sleep apnea (adult) (pediatric); Z99.89 Dependence on other enabling machines and devices; J98.4 Other disorders of lung; J43.9 Emphysema, unspecified; Z87.891 Personal history of nicotine dependence; T78.40XA Allergy, unspecified, initial encounter; X58.XXXA Exposure to other specified factors, initial encounter; J44.9 Chronic obstructive pulmonary disease, unspecified
CPT/HCPCS: 99214; Q3014

== ENCOUNTER → 2025-06-14 13:03 | Outpatient (BNVA) | payer OTHER, SELFPAY ==
[2025-06-01 12:39] VITALS: BP 140/82; BMI 36.7
== END ==
PROVIDERS: PCP Nurse Practitioner Family; Visit Provider Nurse Practitioner Family
DX: L28.0 Lichen simplex chronicus (principal); D22.62 Melanocytic nevi of left upper limb, including shoulder; L81.4 Other melanin hyperpigmentation; L57.8 Other skin changes due to chronic exposure to nonionizing radiation; L82.1 Other seborrheic keratosis; L82.0 Inflamed seborrheic keratosis; Z78.9 Other specified health status; R20.8 Other disturbances of skin sensation; R58 Hemorrhage, not elsewhere classified; L53.8 Other specified erythematous conditions; L29.89 Other pruritus; L30.9 Dermatitis, unspecified; L57.0 Actinic keratosis
CPT/HCPCS: 11102; 17000; 17110; 99213

== ENCOUNTER 2025-06-15 10:21 | Outpatient (CLI) | payer MEDICAID, SELFPAY ==
[2025-02-11 09:44] VITALS: BP 140/82; BMI 36.7
[2025-06-01 12:39] VITALS: BP 140/82; BMI 36.7
--- NOTE | 2025-06-15 10:15 | USCV_ITS ---
Yair Urrutia Age: 59 Gender: M : 1965 Exam Date: 06/15/2025 10:40 Ordering Phys: César Agarwal DO Technologist: Exam Location: [facility] [place] Indication: pre op hx of rt leg dvt PROCEDURES: The venous duplex Doppler examination of both lower extremities was performed in the standard fashion. The following venous structures were evaluated: common femoral vein, profunda vein, proximal portion of the greater saphenous vein, superficial femoral vein, and the popliteal vein. In addition, the posterior tibial and peroneal trunk were evaluated. FINDINGS: Normal 2-D Doppler and augmentation and compressibility throughout the lower extremity venous structures. Additional imaging through the proximal calf veins also reveals no thrombus. Limited evaluation of the greater saphenous vein is patent with no thrombus. CONCLUSIONS No evidence of right lower extremity DVT. No evidence of left lower extremity DVT. aJg Ambrosio MD (Electronically Signed) Final Date: 15 June 2025 14:46 S
== END 2025-06-15 10:22 | disposition home or self-care (01) ==
LOC: RAD 10:22
PROVIDERS: PCP Nurse Practitioner Family; Visit Provider Student in an Organized Health Care Education/Training Program
DX: I82.502 Chronic embolism and thrombosis of unspecified deep veins of left lower extremity (principal)
CPT/HCPCS: 93970

== ENCOUNTER 2025-07-07 11:01 | Outpatient (CLI) | payer MEDICAID, SELFPAY ==
[2025-06-01 12:39] VITALS: BP 140/82; BMI 36.7
== END 2025-07-07 11:02 | disposition home or self-care (01) ==
LOC: RT 11:02
PROVIDERS: PCP Nurse Practitioner Family; Visit Provider Internal Medicine
DX: J44.9 Chronic obstructive pulmonary disease, unspecified (principal); Z47.89 Encounter for other orthopedic aftercare; Z98.1 Arthrodesis status; G99.2 Myelopathy in diseases classified elsewhere
CPT/HCPCS: 72040; 94010; 94726; 94729; 99214

== ENCOUNTER → 2025-07-12 16:47 | Outpatient (BNVA) | payer MEDICAID, SELFPAY ==
[2025-06-01 12:39] VITALS: BP 140/82; BMI 36.7
== END ==
PROVIDERS: PCP Nurse Practitioner Family; Visit Provider Student in an Organized Health Care Education/Training Program
DX: Z01.818 Encounter for other preprocedural examination (principal)
CPT/HCPCS: 36415; 80053; 81001; 83036; 85025

== ENCOUNTER → 2025-07-14 14:08 | Outpatient (BNVA) | payer MEDICAID, SELFPAY ==
[2025-06-01 12:39] VITALS: BP 140/82; BMI 36.7
== END ==
PROVIDERS: PCP Nurse Practitioner Family; Visit Provider Internal Medicine
DX: R91.1 Solitary pulmonary nodule (principal); G47.33 Obstructive sleep apnea (adult) (pediatric); Z99.89 Dependence on other enabling machines and devices; I82.509 Chronic embolism and thrombosis of unspecified deep veins of unspecified lower extremity; Z79.01 Long term (current) use of anticoagulants; J98.4 Other disorders of lung; J43.9 Emphysema, unspecified; R91.8 Other nonspecific abnormal finding of lung field; F12.90 Cannabis use, unspecified, uncomplicated; Z87.891 Personal history of nicotine dependence
CPT/HCPCS: 99214

== ENCOUNTER 2025-07-18 14:49 | Outpatient (CLI) | payer MEDICAID, SELFPAY ==
[2025-02-11 09:44] VITALS: BP 140/82; BMI 36.7
[2025-06-01 12:39] VITALS: BP 140/82; BMI 36.7
--- NOTE | 2025-07-18 15:15 | CT_ITS ---
WS: [id number] CT RIGHT hip for SKYLAR procedure HISTORY: RIGHT TOTAL HIP ARTHROPLASTY Date: 07/18/2025 2:58 PM COMPARISON: None available. TECHNIQUE: Protocol for SKYLAR total hip replacement has been obtained. This includes axial imaging from the hip joint through the knee joint. DLP: 934 FINDINGS: Advanced arthritis RIGHT hip. Associated hypertrophic changes with joint space narrowing. Subchondral cystic changes in the femoral head and acetabulum. Hypertrophic changes along the joint line. Moderate degenerative narrowing of the LEFT hip. Moderate facet arthropathy lower lumbar spine. Small fat-c ontaining umbilical hernia. Fat-containing LEFT inguinal hernia. CT/CT hip RT SKYLAR [id number] IMPRESSION: CT imaging provided for SKYLAR robotic total hip replacement.
== END 2025-07-18 14:50 | disposition home or self-care (01) ==
LOC: RAD 14:49
PROVIDERS: PCP Nurse Practitioner Family; Visit Provider Student in an Organized Health Care Education/Training Program
DX: L28.0 Lichen simplex chronicus (principal); L20.89 Other atopic dermatitis; L81.4 Other melanin hyperpigmentation; L57.8 Other skin changes due to chronic exposure to nonionizing radiation; L82.1 Other seborrheic keratosis; M16.11 Unilateral primary osteoarthritis, right hip
CPT/HCPCS: 73700; 99214

== ENCOUNTER 2025-08-01 05:59 | Day surgery (SDC) | payer MEDICAID, SELFPAY ==
[2025-06-01 12:39] VITALS: BP 140/82; BMI 36.7
--- NOTE | 2025-08-01 06:05 | USR_ITS ---
PROCEDURE INFORMATION: Exam: US Duplex Lower Extremity Veins, Bilateral Exam date and time: 08/01/2025 6:48 AM Age: 59 years old Clinical indication: Screening exam; Pre op hip surg; HX of RT pop dvt off blood thinners; Additional info: Preop screen R/O asymptomatic dvt, history of dvt TECHNIQUE: Imaging protocol: Real-time duplex ultrasound of the bilateral extremities with 2-D meade scale, color Doppler flow and spectral waveform analysis including responses to compression and other maneuvers (when performed) with image documentation. Complete exam focused on the lower extremity veins. COMPARISON: US scrotum [id number] 03/20/2023 2:01 PM FINDINGS: Right deep veins: Nonocclusive thrombus in the right femoral vein. The remainder of the deep venous system of the right side is normal and patent. Left deep veins: Unremarkable. The common femoral, femoral, proximal profunda femoral and popliteal veins are patent without thrombus. Normal Doppler waveforms. Normal compressibility and/or augmentation response. Superficial veins: Greater saphenous veins at the saphenofemoral junctions are patent bilaterally without thrombus. Soft tissues: Unremarkable. US/[place] [id number] IMPRESSION: Nonocclusive thrombus in the right femoral vein.
--- NOTE | 2025-08-01 06:11 | ANES.PREANE2 ---
Pre-Anesthetic Assessment Height/Weight: Height 6 ft Preop Diagnosis: Hip arthritis Operation Date: 08/01/25 07:00 Proposed Procedures p RIGHT Varun Robot Total Hip Arthroplasty(Right) - César Agarwal, Was Beta Ryland taken within 24 hours: N/A Was Clonidine taken within 24 hours: N/A Social No alcohol and No tobacco Exam alert, oriented x 3, clear to auscultation bilaterally and regular rate & rhythm Airway Submandibular: within normal limits Cervical ROM: within normal limits Mallampati: Class III Dentition: full Comments: Comments: Large smiley Anesthetic Plan ASA status: 3 Anesthesia: General Other: No prior issues with anesthesia NPO since yesterday evening History of type 2 diabetes on semaglutide. Last taken 07/19/2025 GERD on Protonix Patient states that his back is too bad for spinal and they had a lot of issues in the past when they attempted this History of DVTs on chronic Xarelto?. Preop ultrasound performed Labs reviewed from 07/12/2025 acceptable for procedure EKG sinus rhythm with first-degree AV block Patient does admit to SOB with exertion but states this is all from pain Plan for general anesthesia Medications/Allergies Home Medications ?Medication ?Instructions ?Recorded ?Confirmed ?Last Taken ?Type blood-glucose meter #1 ea 11/20/19 07/19/25 Unknown History pen needle, diabetic 33 gauge x #100 ea 05/23/20 07/19/25 Unknown Rx 5/32 Doughnut cusion #1 ea 07/02/22 07/19/25 Unknown Rx auto-titrating CPAP 6-16 CM with #1 ea 08/06/24 07/19/25 Unknown Rx tubing, mask and all other supplies Bone Growth Stimulator #1 ea 02/07/25 07/19/25 Unknown Rx blood-glucose meter #1 ea 04/29/25 07/19/25 Unknown Rx lancets 30 gauge and blood glucose #200 ea 04/29/25 07/19/25 Unknown Rx strips combo pack lancets 33 gauge #100 ea 04/29/25 07/19/25 Unknown Rx cetirizine 10 mg tablet 10 mg PO DAILY #90 tabs 07/04/25 07/20/25 07/28/25 Rx cyclobenzaprine 10 mg tablet 10 mg PO BID #60 tabs 07/04/25 07/20/25 07/28/25 Rx doxepin 100 mg capsule 100 mg PO TID PRN anxiety #270 caps 07/04/25 07/20/25 07/28/25 Rx duloxetine 60 mg capsule,delayed 60 mg PO BID #180 caps 07/04/25 07/20/25 07/28/25 Rx release ezetimibe 10 mg tablet 10 mg PO DAILY #90 tabs 07/04/25 07/20/25 07/28/25 Rx gabapentin 300 mg capsule 300 mg PO BID #60 caps 07/04/25 07/20/25 07/28/25 Rx hydroxyzine pamoate 50 mg capsule 50 mg PO BEDTIME #90 caps 07/04/25 07/20/25 07/28/25 Rx isosorbide mononitrate 30 mg 30 mg PO QDAY #90 tabs 07/04/25 07/20/25 07/28/25 Rx tablet,extended release 24 hr metformin 500 mg tablet,extended 500 mg PO BID #180 tabs 07/04/25 07/20/25 07/28/25 Rx release 24 hr pantoprazole 40 mg tablet,delayed 40 mg PO BID #180 tabs 07/04/25 07/20/25 07/28/25 Rx release rivaroxaban 20 mg tablet (Xarelto) 20 mg PO DAILY #90 tabs 07/04/25 07/20/25 07/19/25 Rx semaglutide 0.25 mg or 0.5 mg (2 0.5 mg (0.736 mL) SUBCUT .weekly 07/04/25 07/20/25 07/19/25 Rx mg/3 mL) subcutaneous pen injector #9 mL ([employer]) budesonide 160 mcg-glycopyr 9 2 inh inhalation BID #10.7 grams 07/19/25 07/28/25 07/28/25 Rx mcg-formot 4.8 mcg/actuation HFA inhaler ([employer]) Allergies Allergy/AdvReac Type Severity Reaction Status Date / Time alcohol Allergy ALGY-Swell Verified 07/20/25 13:04 Lip/Tongue/Throat aspirin AdvReac Severe ADR-Cramping Verified 07/20/25 13:04 of the Muscles hydrocodone AdvReac Unknown Itching Verified 07/20/25 13:04 [facility] Anesthesia Medical History (Updated 07/19/25 @ 14:51 by Aamir Giordano MD) Psychiatric care Type 2 diabetes mellitus with complication Pulmonary nodule last CT 04/2024 Alzheimer disease follows with neurology Chronic restrictive lung disease Benign essential hypertension with target blood pressure below 140/90 Dyslipidemia DMITRIY (obstructive sleep apnea) compliant with cpap Neuropathy Obesity Atypical chest pain the EKG revealed a normal sinus rhythm with possible old inferior wall myocardial infarction. No significant ST-T changes. 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 Internal bleeding hemorrhoids Environmental and seasonal allergies Ischemic stroke of frontal lobe Surgical History History of thumb surgery History of knee surgery History of cholecystectomy Family History Other CVA (cerebrovascular accident due to intracerebral hemorrhage) Heart disease Hypertension Lung disease Social History Smoking and tobacco/nicotine status: former use of tobacco/nicotine Quit status (tobacco/nicotine): has quit using Year quit tobacco: 2013 - 2PPD x 45 Years Alcohol intake: never Substance/Drug Use: current Substance/Drug use frequency: daily Lives independently: Yes Household members: family Marital status: Current occupational status: disabled Do you think of yourself as: Straight/Heterosexual Current gender identity: Male Data Anesthesia 08/01/25 06:30 08/01/25 06:30 Cardiac Studies: Sestamibi Stress Test (Cardiology) 05/07/22
[2025-08-01 06:25] VITALS: BP 149/91; PULSE 80; RESP 18; TEMP 36.4; O2SAT 96
[2025-08-01] MEDS: acetaminophen 1,000 MG/100 ML PIGGYBACK 400 MG IV (06:45)
[2025-08-01 06:46] VITALS: BMI 36.3
[2025-08-01 06:51] LABS: Mean Corpuscular Volume 86.7 fl (82-101); Nucleated Red Blood Cells % 0 %; Platelet Count 216 10^3/cmm (157-399)
[2025-08-01 07:05] LABS: Anion Gap 16.4 (5-19); Blood Urea Nitrogen 12 mg/dL (8-23); Calcium 9.1 mg/dL (8.5-10.5); Carbon Dioxide 24 mmol/L (22-29); Chloride 101 mmol/L (98-107); Glucose 176 mg/dL (65-115); Osmolality Calculated 288 mOsm/kg (285-295); Potassium 4.4 mmol/L (3.5-5.1); Sodium 137 mmol/L (136-145)
[2025-08-01 07:07] LABS: Hematocrit 37.9 % (37-53); Hemoglobin 12.80 g/dL (11.27-16.99); Mean Corpuscular HGB Conc 33.8 g/dL (30-55); Mean Corpuscular Hemoglobin 29.3 pg (27-33); Red Blood Count 4.37 10^6/uL (3.85-5.65); White Blood Count 6.68 10^3/uL (3.29-11.43)
--- NOTE | 2025-08-01 07:43 | PM.MISC ---
Miscellaneous Note Purpose of Documentation: Orthopedic note update: Patient was seen in the preoperative area during the preoperative screening process we did get a new scan of his bilateral lower extremities ultrasound to rule out DVT given he had a clean scan 6 weeks ago he has had a couple times of starting and stopping his medications due to him originally having surgery scheduled last week versus this week he states his last taken it on . He is not symptomatic. At this point in time he had a ultrasound scan that was positive today for a nonocclusive thrombosis in the right femoral vein. At this point in time we will cancel surgery today due to this being a new clot. At this point in time I have called his primary care provider KENDRA Benavidez and she requested patient call the office and start heading down to her office this morning. Patient will be discharged from the preoperative holding area and head down to his primary care provider and will defer to her management for DVT. He understands down the road here once this is addressed we will proceed with the total hip arthroplasty may have to talk about potentially IVC filter versus possibly admitting patient the day prior to have on heparin to bridge. Patient at this point time understands and agrees with current plan. All questions answered. Will have the office reach out to him after he has been being treated by his PCP and try and coordinate a total hip arthroplasty at a later date once this is clear patient understands and agrees with current plan. All questions answered. César Agarwal DO Orthopedic surgery Bilateral lower extremity ultrasound scan 08/01/2025 shown below results Patient: Yair Urrutia Unit #: [id number] : [id number] Age/Sex: 59 / M ADM Date: 08/01/25 Loc: OR Room/Bed: Attending: César Agarwal DO Ordering Provider/Ordering MD: César Agarwal Date of Service: 08/01/25 Procedure(s): [id number] Accession Number(s): [id number] Report Number: [id number] PROCEDURE INFORMATION: Exam: US Duplex Lower Extremity Veins, Bilateral Exam date and time: 08/01/2025 6:48 AM Age: 59 years old Clinical indication: Screening exam; Pre op hip surg; HX of RT pop dvt off blood thinners; Additional info: Preop screen R/O asymptomatic dvt, history of dvt TECHNIQUE: Imaging protocol: Real-time duplex ultrasound of the bilateral extremities with 2-D meade scale, color Doppler flow and spectral waveform analysis including responses to compression and other maneuvers (when performed) with image documentation. Complete exam focused on the lower extremity veins. COMPARISON: [facility] [id number] 03/20/2023 2:01 PM FINDINGS: Right deep veins: Nonocclusive thrombus in the right femoral vein. The remainder of the deep venous system of the right side is normal and patent. Left deep veins: Unremarkable. The common femoral, femoral, proximal profunda femoral and popliteal veins are patent without thrombus. Normal Doppler waveforms. Normal compressibility and/or augmentation response. Superficial veins: Greater saphenous veins at the saphenofemoral junctions are patent bilaterally without thrombus. Soft tissues: Unremarkable. US/[id number] IMPRESSION: Nonocclusive thrombus in the right femoral vein.
--- NOTE | 2025-08-01 07:52 | SUR.PREOP ---
Patient surgery cancelled due to dvt in r leg
== END 2025-08-01 07:56 | disposition home or self-care (01) ==
LOC: OR 06:01
PROVIDERS: Physician Assistant; PCP Nurse Practitioner Family; Visit Provider Student in an Organized Health Care Education/Training Program
PROC: 8E0Y0CZ Robotic Assisted Procedure of Lower Extremity, Open Approach (ICD-10-PCS; CPT 27130; principal; 2025-08-01 07:00)
DX: Z53.8 Procedure and treatment not carried out for other reasons (principal)
CPT/HCPCS: 36415; 36416; 80048; 82962; 85025; 86850; 86900; 93970; J0131; J7030

== ENCOUNTER 2025-08-10 12:17 | Outpatient (CLI) | payer MEDICAID, SELFPAY ==
[2025-06-01 12:39] VITALS: BP 140/82; BMI 36.7
--- NOTE | 2025-08-10 12:33 | CTR_ITS ---
PROCEDURE INFORMATION: Exam: CT Chest Without Contrast; Diagnostic Exam date and time: 08/10/2025 12:42 PM Age: 59 years old Clinical indication: Condition or disease; Lung condition and disease; Pulmonary nodule, solitary; Prior surgery; Surgery date: 6+ months; Surgery type: Gb; Additional info: Annual follow up TECHNIQUE: Imaging protocol: Diagnostic computed tomography of the chest without contrast. Radiation optimization: All CT scans at this facility use at least one of these dose optimization techniques: automated exposure control; mA and/or kV adjustment per patient size (includes targeted exams where dose is matched to clinical indication); or iterative reconstruction. COMPARISON: CT chest abdpel w/*[id number] 05/17/2024 3:26 PM RADIATION DOSE METRICS: Total DLP (mGy-cm): 691.43 FINDINGS: Trachea: Patent central airways. Lungs: Mild bronchiectasis right lower lobe. 6 mm nodule in the right upper lobe and 1.0 cm nodule in the right lower lobe are stable, remeasured. Scattered areas of peripheral reticulation compatible with mild chronic fibrotic changes. Pleural spaces: No pneumothorax or pleural effusion. Heart: Heart size is normal. No pericardial effusion. Coronary arteries: Coronary artery calcifications. Lymph nodes: No supraclavicular, axillary, mediastinal, or hilar adenopathy. Vasculature: Intimal calcifications of the aorta and it proximal branch vessels. Gallbladder and biliary ducts: Cholecystectomy. Bones/joints: No acute fracture or dislocation. Degenerative changes of the thoracic spine. Partially visualized ACDF hardware. Soft tissues: Unremarkable. CT/CT chest wo con [id number] IMPRESSION: Stable lung nodules.
== END 2025-08-10 12:18 | disposition home or self-care (01) ==
LOC: RAD 12:19
PROVIDERS: PCP Nurse Practitioner Family; Visit Provider Nurse Practitioner Family
DX: J98.4 Other disorders of lung (principal); R91.1 Solitary pulmonary nodule; Z98.890 Other specified postprocedural states; J47.9 Bronchiectasis, uncomplicated; I25.10 Atherosclerotic heart disease of native coronary artery without angina pectoris; I70.0 Atherosclerosis of aorta; Z90.49 Acquired absence of other specified parts of digestive tract; M47.814 Spondylosis without myelopathy or radiculopathy, thoracic region
CPT/HCPCS: 71250